=== PATIENT | male | born 1975 | race Caucasian/White ===

== ENCOUNTER 2017-12-02 07:18 | Emergency (ER) | payer BC ==
--- OUTSIDE RECORDS SUMMARY | 2017-12-02 07:20 | XMS REPORT ---
:1975 Author Organization eClinicalWorks Care Team Providers Name Role Phone Jay Hairston Provider Role Unavailable Allergies No Known Allergies Problems Problem Type Condition Code Onset Dates Condition Status Assessment Obstructive sleep apnea G47.33 Active Problem Hypothyroidism E03.9 Active Problem Tobacco abuse counseling Z71.6 Active Problem Pure hypercholesterolemia E78.00 Active Problem Foot pain, right M79.671 Active Problem Acquired hypothyroidism E03.9 Active Problem Obstructive sleep apnea G47.33 Active Problem Hypertension I10 Active Problem BMI 50.0-59.9, adult Z68.43 Active Problem Gastro-esophageal reflux disease K21.9 Active without esophagitis Assessment Pure hypercholesterolemia E78.00 Active Assessment Stage 2 chronic kidney disease N18.2 Active Assessment Hypothyroidism E03.9 Active Assessment BMI 50.0-59.9, adult Z68.43 Active Medications Medication Code Code Instructions Start End Date Status Dosage System Date Synthroid [facility] 50293628472 150 MCG Orally Active 1 tablet Once a day on an empty stomach in the morning Diclofenac ND 70255080325 75 MG Orally August Inactive 1 tablet Sodium Twice a day 2017 with food or milk Liothyronine ND 20777332865 25 MCG Orally August Active 1 tablet Sodium Once a day 2017 on an empty stomach Lisinopril [facility] 71240748202 40 MG Orally Active 1 tablet Once a day Results No Known Results Summary Purpose eClinicalWorks Submission
--- NOTE | 2017-12-02 09:33 | RAD REPORT ---
EXAM DESCRIPTION: VAS - Extremity Venous Uni Ltd - 12/02/2017 8:59 am CLINICAL HISTORY: SWELLING Left arm swelling. COMPARISON: No comparisons FINDINGS: Left upper extremity venous system was interrogated with Doppler technique. Thrombus is pr esent in the cephalic vein in the lower arm. No other evidence of DVT seen. IMPRESSION: Cephalic vein thrombosis is seen involving the lower arm. Findings were discussed with Cristhian Frazier in the ER 9:30 am 12/02/2017 by telephone.
--- NOTE | 2017-12-02 09:42 | ER ---
Nurse's Notes [facility] Name: Cem Serra Age: 41 yrs Sex: Male : 1975 Arrival Date: 12/02/2017 Time: 07:21 Bed 20 Private MD: None, None Diagnosis: Acute embolism and thrombosis of superficial veins of upper extremity-Left Forearm Presentation: 12/02 07:45 Presenting complaint: Patient states: had recent vertical sleeve gastric surgery on iw 11-28-17 in [place], just flew back in to town, has swelling and pain to LFA, feels a knot in forearm, had IV in left hand and was given fluids, pain and nausea medicine through it. Transition of care: patient was not received from another setting of care. Onset of symptoms was December 02, 2017. Risk Assessment: Do you want to hurt yourself or someone else? Patient reports no desire to harm self or others. Initial Sepsis Screen: Does the patient meet any 2 criteria? No. Patient's initial sepsis screen is negative. Does the patient have a suspected source of infection? No. Patient's initial sepsis screen is negative. Care prior to arrival: None. 07:45 Method Of Arrival: Ambulatory iw 07:45 Acuity: MARIA VICTORIA 3 iw Historical: - Allergies: 07:53 NKA; iw - Home Meds: 07:53 lisinopril 40 mg Oral tab 1 tab once daily [Active]; levothyroxine 150 mcg tab 1 tab iw once daily [Active]; liothyronine 25 mcg oral tab 1 tab once daily [Active]; - PMHx: 07:53 Hypertension; Hypothyroidism; iw - PSHx: 07:53 Cholecystectomy; Appendectomy; gastric sleeve; iw - Immunization history:: Adult Immunizations. - Social history:: Smoking status: . - Ebola Screening: : Patient negative for fever greater than or equal to 101.5 degrees Fahrenheit, and additional compatible Ebola Virus Disease symptoms Patient denies exposure to infectious person Patient denies travel to an Ebola-affected area in the 21 days before illness onset No symptoms or risks identified at this time. Screenin:05 Abuse screen: Denies threats or abuse. Nutritional screening: No deficits noted. em Tuberculosis screening: No symptoms or risk factors identified. Fall Risk None identified. Assessment: 08:00 General: Appears in no apparent distress. comfortable, Behavior is calm, cooperative. em Pain: Complains of pain in dorsal aspect of left forearm Pain does not radiate. Quality of pain is described as "annoying". Neuro: Level of Consciousness is awake, alert, obeys commands, Oriented to person, place, time, situation. Cardiovascular: Capillary refill < 3 seconds Patient's skin is warm and dry. Respiratory: Airway is patent Respiratory effort is even, unlabored, Respiratory pattern is regular, symmetrical. GI: Abdomen is round non-distended. Derm:. Musculoskeletal: Range of motion: intact in all extremities, Reports pain in left arm since 11/28/17. 09:19 Reassessment: Patient appears in no apparent distress at this time. Patient and/or em family updated on plan of care and expected duration. Pain level reassessed. Patient is alert, oriented x 3, equal unlabored respirations, skin warm/dry/pink. pt is resting with eyes closed, pending ultrasound results. Vital Signs: 07:49 BP 154 / 97; Pulse 59; Resp 18 S; Temp 97.9(O); Pulse Ox 97% on R/A; Weight 169.19 kg; iw Height 5 ft. 11 in. (180.34 cm); Pain 4/10; 09:40 BP 148 / 91; Pulse 62; Resp 16; Pulse Ox 98% on R/A; em 07:49 Body Mass Index 52.02 (169.19 kg, 180.34 cm) iw ED Course: 07:21 Patient arrived in ED. mr 07:22 None, None is Private Physician. mr 07:35 Cristhian Frazier PA is PHCP. cp 07:35 Andre Franco MD is Attending Physician. cp 07:49 Triage completed. iw 07:49 Arm band placed on. iw 07:51 Crescencio Young LVN is Primary Nurse. em 08:04 Patient has correct armband on for positive identification. Placed in gown. Bed in low em position. Call light in reach. 08:05 No provider procedures requiring assistance completed. em 08:36 Ultrasound completed. Patient tolerated well. Notified PAYROLL SUPERVISOR/MALI worthington. sg3 08:59 US Extremity Venous Unilateral Ltd: left arm In Process Unspecified. EDMS 09:39 Jay Hairston MD is Referral Physician. cp 09:50 Patient did not have IV access during this emergency room visit. em Administered Medications: No medications were administered Outcome: 09:41 Discharge ordered by . sarahy 09:51 Discharged to home ambulatory. em 09:51 Condition: good 09:51 Discharge instructions given to patient, Instructed on discharge instructions, follow up and referral plans. Demonstrated understanding of instructions, follow-up care. 09:52 Patient left the ED. em Signatures: Dispatcher [employer] EDWV Taya Bernard mr Hector, Crescencio, BLOCKER AND SEWER BLOCKER AND SEWER em Cindi Vela RN RN Cristhian Parekh, PA PA Sara Rodriguez sg3
--- NOTE | 2017-12-02 09:42 | EDPHYS ---
Physician Documentation [facility] Name: Cem Serra Age: 41 yrs Sex: Male : 1975 Arrival Date: 12/02/2017 Time: 07:21 Bed 20 Private MD: None, None ED Physician Andre Franco HPI: 12/02 08:01 This 41 yrs old Male presents to ER via Ambulatory with complaints of Arm cp Swelling. 08:02 The patient or guardian complains of swelling, tenderness. The complaints affect the cp left arm. 08:02 Context: Patient reports having gastric sleeve surgery in [place] November 28, 2017 w/o cp complications. 08:02 Onset: The symptoms/episode began/occurred gradually. Treatment prior to arrival cp includes: no previous treatment. Associated signs and symptoms: Pertinent negatives: decreased range of motion, fever, numbness. Historical: - Allergies: 07:53 NKA; iw - Home Meds: 07:53 lisinopril 40 mg Oral tab 1 tab once daily [Active]; levothyroxine 150 mcg tab 1 tab iw once daily [Active]; liothyronine 25 mcg oral tab 1 tab once daily [Active]; - PMHx: 07:53 Hypertension; Hypothyroidism; iw - PSHx: 07:53 Cholecystectomy; Appendectomy; gastric sleeve; iw - Immunization history:: Adult Immunizations. - Social history:: Smoking status: . - Ebola Screening: : Patient negative for fever greater than or equal to 101.5 degrees Fahrenheit, and additional compatible Ebola Virus Disease symptoms Patient denies exposure to infectious person Patient denies travel to an Ebola-affected area in the 21 days before illness onset No symptoms or risks identified at this time. ROS: 08:05 Constitutional: Negative for body aches, chills, fever, poor PO intake. cp 08:05 Eyes: Negative for injury, pain, redness, and discharge. cp 08:05 ENT: Negative for drainage from ear(s), ear pain, sore throat, difficulty swallowing, difficulty handling secretions. 08:05 Cardiovascular: Negative for chest pain, palpitations. 08:05 Respiratory: Negative for cough, shortness of breath, wheezing. 08:05 Abdomen/GI: Negative for abdominal pain, nausea, vomiting, and diarrhea, constipation. 08:05 Back: Negative for pain at rest, pain with movement, radiated pain. 08:05 MS/extremity: Positive for swelling, tenderness, of the left arm, Negative for injury or acute deformity, paresthesias. 08:05 Skin: Negative for cellulitis, rash. 08:05 Neuro: Negative for altered mental status, dizziness, headache, weakness. 08:05 All other systems are negative. Exam: 08:21 Head/Face: Normocephalic, atraumatic. cp 08:21 Constitutional: The patient appears in no acute distress, alert, awake, non-diaphoretic, non-toxic, well developed, well nourished, obese. 08:21 Eyes: Periorbital structures: appear normal, Conjunctiva: normal, no exudate, no injection, Sclera: no appreciated abnormality, Lids and lashes: appear normal, bilaterally. 08:21 ENT: External ear(s): are unremarkable, Nose: is normal, Mouth: Lips: normal, Oral mucosa: moist, Posterior pharynx: is normal, airway is patent, no erythema, no exudate. 08:21 Neck: ROM/movement: is normal, is supple, without pain, no range of motions limitations, no nuchal rigidity. 08:21 Chest/axilla: Inspection: normal, Palpation: is normal, no crepitus, no tenderness. 08:21 Cardiovascular: Rate: normal, Rhythm: regular, Pulses: Pulses are 2+ in right radial artery and left radial artery. Heart sounds: murmur, not appreciated, rub, not appreciated, gallop, not appreciated, JVD: is not appreciated. 08:21 Respiratory: the patient does not display signs of respiratory distress, Respirations: normal, no use of accessory muscles, no retractions, no splinting, no tachypnea, labored breathing, is not present, Breath sounds: are clear throughout, no decreased breath sounds, no stridor, no wheezing. 08:21 Abdomen/GI: Inspection: distension, is not seen, scar(s), are noted in the umbilical area, right upper quadrant and left upper quadrant, Bowel sounds: active, all quadrants, Palpation: soft, in all quadrants, mild abdominal tenderness, in all quadrants, rebound tenderness, is not appreciated, involuntary guarding, is not appreciated. 08:21 Back: pain, is absent, ROM is normal. 08:21 Musculoskeletal/extremity: Extremities: grossly normal except: noted in the left arm: swelling, There is no evidence of decreased ROM, deformity, erythema, ROM: full active range of motion, Sensation intact. 08:21 Skin: cellulitis, is not appreciated, no rash present. Vital Signs: 07:49 BP 154 / 97; Pulse 59; Resp 18 S; Temp 97.9(O); Pulse Ox 97% on R/A; Weight 169.19 kg; iw Height 5 ft. 11 in. (180.34 cm); Pain 4/10; 09:40 BP 148 / 91; Pulse 62; Resp 16; Pulse Ox 98% on R/A; em 07:49 Body Mass Index 52.02 (169.19 kg, 180.34 cm) iw MDM: 07:48 Patient medically screened. cp 08:10 Differential diagnosis: DVT, cellulitis, abscess. cp 09:40 Data reviewed: vital signs, nurses notes, radiologic studies, ultrasound, and as a cp result, I will discharge patient. 09:40 Counseling: I had a detailed discussion with the patient and/or guardian regarding: the cp historical points, exam findings, and any diagnostic results supporting the discharge/admit diagnosis, radiology results, the need for outpatient follow up, an diesel mechanic helper, to return to the emergency department if symptoms worsen or persist or if there are any questions or concerns that arise at home. 12/02 08:03 Order name: US Extremity Venous Unilateral Ltd: left arm; Complete Time: 09:34 cp Administered Medications: No medications were administered Disposition: 12/02/17 09:41 Discharged to Home. Impression: Acute embolism and thrombosis of superficial veins of upper extremity - Left Forearm. - Condition is Stable. - Discharge Instructions: Venous Thromboembolism, Heat Therapy. - Medication Reconciliation Form, Thank You Letter, Antibiotic Education, Prescription Opioid Use form. - Follow up: Jay Hairston MD; When: 2 - 3 days; Reason: Recheck today's complaints. - Problem is new. - Symptoms are unchanged. Addendum: 12/03/2017 10:28 Co-signature as Attending Physician, Andre Franco MD. g s Signatures: Dispatcher [employer] EDCrescencio Ku, CAN CONVEYOR FEEDER CAN CONVEYOR FEEDER em Cindi Vela RN RN iw Cristhian Frazier PA PA Andre Martin MD MD gs Corrections: (The following items were deleted from the chart) 12/02 09:52 09:41 12/02/2017 09:41 Discharged to Home. Impression: Acute embolism and thrombosis of em superficial veins of upper extremity - Left Forearm. Condition is Stable. Forms are Medication Reconciliation Form, Thank You Letter, Antibiotic Education, Prescription Opioid Use. Follow up: Jay Hairston; When: 2 - 3 days; Reason: Recheck today's complaints. Problem is new. Symptoms are unchanged. cp
[2017-12-02 09:56] VITALS: TEMP 97.9
[2017-12-02 09:57] VITALS: BP 148/91; O2SAT 98
== END 2017-12-02 09:52 | disposition home or self-care (01) ==
LOC: ER 07:18
DX: I82.612 Acute embolism and thrombosis of superficial veins of left upper extremity (principal); I10 Essential (primary) hypertension; E03.9 Hypothyroidism, unspecified
CPT/HCPCS: 93971; 99283

== ENCOUNTER 2018-12-26 08:51 | Emergency (ER) | payer BC, OTHER ==
--- OUTSIDE RECORDS SUMMARY | 2018-12-26 08:54 | XMS REPORT ---
:1975 Author Organization eClinicalWorks Care Team Providers Name Role Phone Jay Hairston Provider Role Unavailable Allergies, Adverse Reactions, Alerts Substance Reaction Event Type N.K.D.A. 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 Active Problem Body mass index (BMI) of 45.0-49.9 Z68.42 Active in adult Problem Foot pain, right M79.671 Active Problem Gastro-esophageal reflux disease K21.9 Active without esophagitis Problem Pure hypercholesterolemia E78.00 Active Problem Acquired hypothyroidism E03.9 Active Assessment Hypothyroidism E03.9 Active Assessment Hypertension I10 Active Assessment Body mass index (BMI) of 45.0-49.9 Z68.42 Active in adult Medications Medication Code Code Instructions Start End Status Dosage System Date Date Lisinopril [facility] 31334009186 40 MG Orally Active 1 tablet Once a day Synthroid [facility] 62483980406 150 MCG Orally Active 1 tablet Once a day on an empty stomach in the morning Liothyronine ND 01342114782 25 MCG Orally Alysa Active 1 tablet Sodium Once a day 2017 on an empty stomach Results No Known Results Summary Purpose eClinicalWorks Submission
--- OUTSIDE RECORDS SUMMARY | 2018-12-26 08:54 | XMS REPORT ---
:1975 Author Organization eClinicalWorks Care Team Providers Name Role Phone Rylee Barron Provider Role Unavailable Allergies, Adverse Reactions, Alerts Substance Reaction Event Type N.K.D.A. 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 Active Problem Acquired hypothyroidism E03.9 Active Problem Encounter for removal of sutures Z48.02 Active Problem BMI 50.0-59.9, adult Z68.43 Active Problem Gastro-esophageal reflux disease K21.9 Active without esophagitis Problem Pure hypercholesterolemia E78.00 Active Problem Foot pain, right M79.671 Active Medications Medication Code Code Instructions Start End Status Dosage System Date Date Lisinopril ND 85664771343 40 MG Orally Active 1 tablet Once a day Diclofenac ND 10652345021 1 % Transdermal December 03, Jan 02, Active as directed Sodium Twice a day 2017 2017 Liothyronine ND 99626810408 25 MCG Orally August Active 1 tablet on Sodium Once a day 2017 an empty stomach Synthroid ND 52560480985 150 MCG Orally Active 1 tablet on Once a day an empty stomach in the morning Synthroid [facility] 28220996350 150 Active TAKE ONE TABLET BY MOUTH DAILY Results No Known Results Summary Purpose eClinicalWorks Submission
--- OUTSIDE RECORDS SUMMARY | 2018-12-26 08:54 | XMS REPORT ---
[...] End Date Status Dosage System Date Synthroid [facility] 84109854056 150 MCG Orally Active 1 tablet Once a day on an empty stomach in the morning Diclofenac ND 76424636738 75 MG Orally August Inactive 1 tablet Sodium Twice a day 2017 with food or milk Liothyronine ND 08449811711 25 MCG Orally August Active 1 tablet Sodium Once a day 2017 on an empty stomach Lisinopril [facility] 38752012860 40 MG Orally Active 1 tablet Once a day Results No Known Results Summary Purpose eClinicalWorks Submission
--- OUTSIDE RECORDS SUMMARY | 2018-12-26 08:54 | XMS REPORT ---
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 80675945965 150 MCG Orally Active 1 tablet on Once a day an empty stomach in the morning Lisinopril ND 57802825465 40 MG Orally Active 1 tablet Once a day Diclofenac [facility] 35787777562 1 % Transdermal December 03, Jan 02, Active as directed Sodium Twice a day [address] [facility] 27403810696 150 Active TAKE ONE TABLET BY MOUTH DAILY Liothyronine ND 06620826343 25 MCG Orally August Active 1 tablet on Sodium Once a day 2017 an empty stomach Results No Known Results Summary Purpose eClinicalWorks Submission
--- OUTSIDE RECORDS SUMMARY | 2018-12-26 08:54 | XMS REPORT ---
:1975 Author Organization eClinicalWorks Care Team Providers Name Role Phone Megan Bailey Provider Role Unavailable Allergies, Adverse Reactions, Alerts Substance Reaction Event Type N.K.D.A. 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 Active Problem Pure hypercholesterolemia E78.00 Active Assessment Seasonal allergic rhinitis, J30.2 Active unspecified trigger Assessment Dizziness R42 Active Problem Hypothyroidism E03.9 Active Medications Medication Code Code Instructions Start End Status Dosage System Date Date Synthroid [facility] 93872656405 150 MCG Orally Active 1 tablet Once a day on an empty stomach in the morning Liothyronine ND 12127795549 25 MCG Orally August Active 1 tablet Sodium Once a day 2017 on an empty stomach Lisinopril ND 50511678431 40 MG Orally Active 1 tablet Once a day Flonase ND 47661534596 50 MCG/ACT Feb 19, Active 2 sprays Nasally Once a 2018 each day nostril prn Results Name Result Date Reference Range Unit Abnormality Flag GLUCOSE FINGER ----Result 85 [id number] Summary Purpose eClinicalWorks Submission
--- OUTSIDE RECORDS SUMMARY | 2018-12-26 08:54 | XMS REPORT ---
:1975 Author Organization eClinicalWorks Care Team Providers Name Role Phone Anderson Rylee Provider Role Unavailable Allergies, Adverse Reactions, Alerts Substance Reaction Event Type N.K.D.A. Info Not Available Non Drug Allergy Problems Problem Type Condition Code Onset Dates Condition Status Problem Obstructive sleep apnea G47.33 Active Problem Foot pain, right M79.671 Active Problem Gastro-esophageal reflux disease K21.9 Active without esophagitis Assessment Acute nasopharyngitis [common cold] J00 Active Problem Hypothyroidism E03.9 Active Problem Hypertension I10 Active Problem Environmental allergies Z91.09 Active Problem Body mass index (BMI) of 45.0-49.9 Z68.42 Active in adult Problem Acute nasopharyngitis [common cold] J00 Active Problem Pure hypercholesterolemia E78.00 Active Problem Acquired hypothyroidism E03.9 Active Problem Encounter for removal of sutures Z48.02 Active Problem 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 Active Medications Medication Code Code Instructions Start End Status Dosage System Date Date Fluticasone ND 98703058649 50 MCG/ACT Apr 11, Active 1 spray in Propionate Nasally Once a 2017 each day nostril Oseltamivir ND 53993141372 75 MG Orally Apr 11, Active 1 capsule Phosphate Twice a day 2017 Lisinopril ND 18739226780 40 MG Orally Active 1 tablet Once a day Liothyronine ND 63174787119 25 MCG Orally August Active 1 tablet Sodium Once a day 2017 on an empty stomach Flonase ND 51522387771 50 MCG/ACT Feb 19, Active 2 sprays Nasally Once a 2017 each day nostril prn Synthroid ND 72614404433 150 MCG Orally Active 1 tablet Once a day on an empty stomach in the morning Results No Known Results Summary Purpose eClinicalWorks Submission
--- NOTE | 2018-12-26 10:19 | ER ---
Nurse's Notes [facility] Name: Cem Serra Age: 42 yrs Sex: Male : 1975 Arrival Date: 12/26/2018 Time: 08:53 Bed 11 Private MD: Jay Hairston Diagnosis: Bursitis of left shoulder Presentation: 12/26 09:07 Presenting complaint: Left shoulder pain x 1 year. Transition of care: patient was not hb received from another setting of care. Onset of symptoms is unknown. Risk Assessment: Do you want to hurt yourself or someone else? Patient reports no desire to harm self or others. Initial Sepsis Screen: Does the patient meet any 2 criteria? No. Patient's initial sepsis screen is negative. Does the patient have a suspected source of infection? No. Patient's initial sepsis screen is negative. Care prior to arrival: None. 09:07 Method Of Arrival: Ambulatory hb 09:07 Acuity: MARIA VICTORIA 4 hb Historical: - Allergies: 09:08 NKA; hb - Home Meds: 09:08 levothyroxine 150 mcg tab 1 tab once daily [Active]; liothyronine 25 mcg Oral tab 1 tab hb once daily [Active]; lisinopril 40 mg Oral tab 1 tab once daily [Active]; - PMHx: 09:08 Hypertension; Hypothyroidism; hb - PSHx: 09:08 Appendectomy; Cholecystectomy; gastric sleeve; hb Vital Signs: 09:08 BP 163 / 89; Pulse 59; Resp 16; Temp 98.2; Pulse Ox 100% on R/A; Weight 104.33 kg; hb Height 5 ft. 11 in. (180.34 cm); Pain 8/10; 09:08 Body Mass Index 32.08 (104.33 kg, 180.34 cm) hb ED Course: 08:53 Patient arrived in ED. as 08:54 Jay Hairston MD is Private Physician. as 09:08 Triage completed. hb 09:08 Arm band placed on. EKG completed in triage. Results shown to MD. EKG completed in hb triage. Results shown to MD. 10:03 Layton Hough PA is PHCP. [facility] 10:03 Ubaldo Solorio MD is Attending Physician. paul 10:17 Silvio Millan MD is Referral Physician. [facility] 10:26 Denice Boone, RN is Primary Nurse. 10:26 No provider procedures requiring assistance completed. Patient did not have IV access ss during this emergency room visit. Administered Medications: No medications were administered Outcome: 10:18 Discharge ordered by . [facility] 10:26 Discharged to home ambulatory, with friend. 10:26 Condition: good 10:26 Discharge instructions given to patient, Instructed on discharge instructions, follow up and referral plans. safe sex practices, Demonstrated understanding of instructions, follow-up care, medications, Prescriptions given X 1. 10:28 Patient left the ED. Signatures: Layton Hough PA PA Rachell Jain as Denice Boone, RN RN Abby Cash RN RN hb
--- NOTE | 2018-12-26 10:20 | EDPHYS ---
Physician Documentation [facility] Name: Cem Serra Age: 42 yrs Sex: Male : 1975 Arrival Date: 12/26/2018 Time: 08:53 Bed 11 Private MD: Jay Hairston ED Physician Ubaldo Solorio HPI: 12/26 10:16 This 42 yrs old Male presents to ER via Ambulatory with complaints of jmm Shoulder Pain. 10:16 left shoulder. Onset: The symptoms/episode began/occurred gradually. Modifying factors: jmm the symptoms are alleviated by remaining still, The symptoms are aggravated by movement. Associated signs and symptoms: Pertinent negatives:. This is a 42 year old male with a history of htn that presents to the ED with complaints of left shoulder pain which has been chronic over the past year, worsening over the past month. Patient is 1 year s/p bariatric surgery. Patient states now he sleeps on his left side and states now when he moves his shoulder he feels a grinding sensation. Denies radiation of pain, denies weakness. . Historical: - Allergies: 09:08 NKA; hb - Home Meds: 09:08 levothyroxine 150 mcg tab 1 tab once daily [Active]; liothyronine 25 mcg Oral tab 1 tab hb once daily [Active]; lisinopril 40 mg Oral tab 1 tab once daily [Active]; - PMHx: 09:08 Hypertension; Hypothyroidism; hb - PSHx: 09:08 Appendectomy; Cholecystectomy; gastric sleeve; hb ROS: 10:16 Constitutional: Negative for fever, chills, and weight loss, Cardiovascular: Negative jmm for chest pain, palpitations, and edema, Respiratory: Negative for shortness of breath, cough, wheezing, and pleuritic chest pain. 10:16 MS/extremity: Positive for injury or acute deformity, pain. 10:16 All other systems are negative. Exam: 10:16 Head/Face: atraumatic. Eyes: EOMI, no conjunctival erythema appreciated ENT: Moist jmm Mucus Membranes Neck: Trachea midline, Supple Chest/axilla: Normal chest wall appearance and motion. Cardiovascular: Regular rate and rhythm. No edema appreciated Respiratory: Normal respirations, no respiratory distress appreciated Abdomen/GI: Non distended, soft Back: Normal ROM 10:16 Constitutional: The patient appears in no acute distress, alert, awake. 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 10:16 Skin: Appearance: Color: normal in color. 10:16 Neuro: Orientation: is normal, Mentation: is normal, Memory: is normal. 10:16 Psych: Behavior/mood is pleasant, cooperative. Vital Signs: 09:08 BP 163 / 89; Pulse 59; Resp 16; Temp 98.2; Pulse Ox 100% on R/A; Weight 104.33 kg; hb Height 5 ft. 11 in. (180.34 cm); Pain 8/; 09:08 Body Mass Index 32.08 (104.33 kg, 180.34 cm) hb MDM: 10:16 Patient medically screened. [facility] 10:16 Data reviewed: vital signs, nurses notes. Counseling: I had a detailed discussion with sylvie the patient and/or guardian regarding: the historical points, exam findings, and any diagnostic results supporting the discharge/admit diagnosis, the need for outpatient follow up, to return to the emergency department if symptoms worsen or persist or if there are any questions or concerns that arise at home. ED course: PE normal. Symptoms appear chronic. Patient advised to follow up with ortho for further evaluation. Patient understood and agrees with the plan of care. . Administered Medications: No medications were administered Disposition: 14:20 Co-signature as Attending Physician, Ubaldo Solorio MD I agree with the assessment and kdr plan of care. Disposition: 12/26/18 10:18 Discharged to Home. Impression: Bursitis of left shoulder. - Condition is Stable. - Discharge Instructions: Bursitis. - Prescriptions for Medrol (Jose Carlos) 4 mg Oral Tablets, Dose Pack - take 1 tablet by ORAL route as directed - follow package instructions; 1 packet. - Medication Reconciliation Form, Thank You Letter, Antibiotic Education, Prescription Opioid Use, Family Work Release form. - Follow up: Silvio Millan MD; When: 2 - 3 days; Reason: Recheck today's complaints, Continuance of care, Re-evaluation by your physician. Signatures: Ubaldo Solorio MD MD kdr Mickail, Joel, PA PA jmm Smirch, Shelby, RN RN Abby Cash RN RN Corrections: (The following items were deleted from the chart) 10:28 10:18 12/26/2018 10:18 Discharged to Home. Impression: Bursitis of left shoulder. ss Condition is Stable. Forms are Medication Reconciliation Form, Thank You Letter, Antibiotic Education, Prescription Opioid Use. Follow up: Dr. Silvio Millan; When: 2 - 3 days; Reason: Recheck today's complaints, Continuance of care, Re-evaluation by your physician. sylvie
[2018-12-26 10:32] VITALS: BP 163/89; TEMP 98.2; O2SAT 100
== END 2018-12-26 10:28 | disposition home or self-care (01) ==
LOC: ER 08:51
DX: M75.52 Bursitis of left shoulder (principal); I10 Essential (primary) hypertension; E03.9 Hypothyroidism, unspecified
CPT/HCPCS: 99282

== ENCOUNTER 2020-07-17 16:56 | Emergency (ER) | payer OTHER ==
--- OUTSIDE RECORDS SUMMARY | 2020-07-17 17:07 | XMS REPORT | Continuity of Care Document ---
:1975 Author Organization [facility] t Address [address] [place] [address] Care Team Providers Name Role Phone Unavailable Unavailable Unavailable Problems Condition Condition Condition Status Onset Resolution Last Treating Co mments Source Name Details Category Date Date Treatment Clinician Date Obstructiv Obstructiv Problem Active [facility] sleep [facility] apnea apnea [facility] Hypothyroi Hypothyroi Problem Active [facility] dism dism [facility]ics Pure Pure Problem Active [facility] hyperchole hyperchole Ora kes - sterolemia sterolemia Me moria l [facility] Foot pain, Foot pain, Problem Active [facility] right right [facility] Hypertensi Hypertensi Problem Active [facility] on on [facility] - [facility] l [facility] Gastro-eso Gastro-eso Problem Active [facility] phageal phageal [facility] - reflux reflux Memoria disease disease l without without Outpati esophagiti esophagiti en t s s Clinics Status Status Problem Active [facility] post post [facility] - gastrectom gastrectom Me moria y y l [facility] Encounter Encounter Problem Active [facility] for for [facility] - removal of removal of Me moria sutures sutures l [facility] Body mass Body mass Problem Active [facility] index index [facility] - (BMI) of (BMI) of Memori a 45.0-49.9 45.0-49.9 l in adult in adult Outpat i ent Clinics [facility] Problem Active [facility] vy vy [facility] - allergies allergies Marcos carlos l [facility] Acute Acute Problem Active [facility] nasopharyn nasopharyn Ora kes - gitis gitis Memoria [common [common l cold] cold] [facility] Dizziness Dizziness Problem Active [facility] Seasonal Seasonal Problem Active [facility] allergies allergies [facility] - Memoria l [facility]ics Gastroente Gastroente Problem Active [facility] ritis ritis kes - Memoria l [facility] ent [facility] Costochond Costochond Diagnosis Active [facility] ritis ritis [facility] - [facility]oria l [facility] Allergies, Adverse Reactions, Alerts This patient has no known allergies or adverse reactions. Medications Ordered Filled Start Stop Current Ordering Indication Dosage Frequency Signature Comments Components Source Medication Medication Date Date Medication? Clinician (SIG) Name Name Methocarbam Methocarbam 2019- No Rylee [address] [facility] ol ol 06-30 [facility]ron [facility] - 00:00: 00:00 Memoria 00 :00 [facility] PredniSONE PredniSONE 2019- No Rylee [address] [facility] 06-30 [facility]ron [facility] - 00:00: 00:00 Memoria 00 :00 [facility] ent [facility] Meclizine Meclizine 2018-05 Yes Rylee [address] [facility] HCl HCl 1-05 Barron as needed [facility] - 00:00: for Memoria 00 vertigo/di l zziness [facility] ent Clinics Fluticasone Fluticasone 2017-05 Yes Rylee [address] [facility] Propionate Propionate 1-15 Barron each Ora kes - 00:00: nostril Memoria 00 [facility] ent [facility] Oseltamivir Oseltamivir 2017-05 Yes Rylee [address] [facility] Phosphate Phosphate 1-15 Barron Luke s - 00:00: Memoria 00 l [facility] ent Clinics Flonase Flonase Yes Rylee [address] 9-25 Barron each [facility] - 00:00: nostril Memoria 00 prn l [facility] Clinics Liothyronin Liothyronin Yes Rylee [address] [facility] e Sodium e Sodium Barron on an [facility] - empty Memoria stomach [facility] ent Clinics Synthroid Synthroid Yes Rylee [address] [facility] on an [facility] - empty [facility] stomach in l [facility] Lisinopril Lisinopril Yes Rylee take one [facility] Barron tablet by [facility] - mouth Memoria daily [facility] ent Clinics Zofran Zofrandrzej Yes Rylee 1 tablet [facility] - [facility] l Outpati ent Clinics Procedures This patient has no known procedures. Encounters Start End Encounter Admission Attending Care Care Encounter Source Date/Time Date/Time Type Type Clinicians Facility Department ID 2019-06-30 2019-06-30 [facility] [id number] [facility] 09:20[facility]00 09:20:[address] [facility] Medicine Outpati ent Clinics 2019-04-01 2019-04-01 [facility] [id number] [address] 13:00[facility]00 13:00:[address] [facility] Medicine Outpati ent Clinics 2019-01-24 2019-01-24 [facility] [id number] [address] 10[facility]30:00 10:30:[address] [facility] Medicine Outpati ent Clinics 2018-06-11 2018-06-11 [facility] [id number] [facility] 14:00[facility]00 14:00[facility]00 [facility] l Outpati ent Clinics 2018-02-19 2018-02-19 [facility] [id number] [facility] 11:00:00 11:00:00 [facility] l Outpati ent Clinics 2018-01-07 2018-01-07 [facility] [id number] [facility] [address] 13:00:00 13:00:[address] [facility] Medicine Outpati ent Clinics 2017-12-10 2017-12-10 [facility] [id number] [address] 10:00:00 10:00:00 [facility] l Outpati ent Clinics 2017-12-03 2017-12-03 [facility] [id number] [address] 13:30:00 13:30:[address] [facility] Medicine Outpati ent Clinics 2017-09-07 2017-09-07 [facility] [id number] 10:15:[facility] 10:15:[address] [facility] Medicine Outpati ent Clinics Results This patient has no known results.
[2020-07-17] MEDS ORDERED: MORPHINE 4 MG/ML SYR ONE (17:57)
[2020-07-17] MEDS ORDERED: ONDANSETRON 4 MG/2 ML VIAL ONE (17:57)
[2020-07-17 18:06] LABS: Absolute Lymphocytes (CBC) 1.1 K/uL (0.7-4.9); Basophils % 0.5 % (0-1.3); Hematocrit 39.8 % (39.6-49.0); Lymphocytes % 15.7 % (15.3-44.8); RBC Red Blood Cell Count 4.34 M/uL (4.33-5.43)
[2020-07-17 18:10] LABS: Albumin 4.3 g/dL (3.4-5.0); Bilirubin Direct 0.2 mg/dL (0-0.2); Bilirubin Total 0.9 mg/dL (0.2-1.0); Potassium 3.7 mmol/L (3.5-5.1); Protein, Total 7.2 g/dL (6.4-8.2)
--- NOTE | 2020-07-17 18:28 | RAD REPORT ---
EXAM DESCRIPTION: CT - Stone Protocol - 07/17/2020 5:54 pm CLINICAL HISTORY: Abdominal pain. COMPARISON: 2013 TECHNIQUE: Computed axial tomography of the abdomen pelvis was obtained without oral or IV contrast. Lack of IV and oral contrast limits evaluation of solid organs, bowel, and vessels. Coronal reformat do images were obtained and reviewed. All CT scans are performed using dose optimization technique as appropriate and may include automated exposure control or mA/KV adjustment according to patient size. FINDINGS: Tiny bilateral nonobstructing renal calculi. Mild left hydronephrosis. 3 millimeter calcul us very distal left ureter. Mild enlargement of the prostate gland. Rectal wall appears thickened. The liver, spleen, pancreas and adrenals appear grossly normal There is no evidence of diverticulitis. The appendix appears normal IMPRESSION: 3 millimeter calculus very distal left ureter resulting mild left hydronephrosis Apparent rectal wall thickening may be secondary to incomplete distention, inflammation or mass
[2020-07-17] MEDS ORDERED: MAGNESIUM SULFATE 1 gm IVPB 1 GM/100 ML BAG IV ONE (18:45)
[2020-07-17] MEDS ORDERED: KETOROLAC 30 MG/ML INJ ONE (18:45)
--- NOTE | 2020-07-17 18:52 | ER ---
Nurse's Notes [facility] Name: Cem Serra Age: 44 yrs Sex: Male : 1975 Arrival Date: 07/17/2020 Time: 17:02 Bed Ultrasound Private MD: Jay Hairston Diagnosis: Calculus of ureter Presentation: 07/17 17:10 Chief complaint: Patient states: lower abd pain radiates into left groin and had a lot iw of diarrhea, feels like a buzzing feeling all over body and is dizzy feels like he smoked a joint , started an hour ago. Coronavirus screen: diarrhea. Ebola Screen: Patient negative for fever greater than or equal to 101.5 degrees Fahrenheit, and additional compatible Ebola Virus Disease symptoms Patient denies exposure to infectious person. Patient denies travel to an Ebola-affected area in the 21 days before illness onset. No symptoms or risks identified at this time. Initial Sepsis Screen: Does the patient meet any 2 criteria? No. Patient's initial sepsis screen is negative. Does the patient have a suspected source of infection? No. Patient's initial sepsis screen is negative. Risk Assessment: Do you want to hurt yourself or someone else? Patient reports no desire to harm self or others. Onset of symptoms was July 17, 2020. 17:10 Method Of Arrival: Wheelchair iw 17:10 Acuity: MARIA VICTORIA 3 iw Historical: - Allergies: 17:12 NKA; iw - Home Meds: 17:12 levothyroxine 150 mcg tab 1 tab once daily [Active]; iw - PMHx: 17:12 Hypertension; Hypothyroidism; iw - PSHx: 17:12 Appendectomy; Cholecystectomy; gastric sleeve; iw - Immunization history:: Adult Immunizations not up to date. - Social history:: Smoking status: Patient/guardian denies using tobacco, the patient reports quitting approximately 16 years ago. - Family history:: not pertinent. - Hospitalizations: : No recent hospitalization is reported. Screenin:34 Abuse screen: Denies threats or abuse. Denies injuries from another. Nutritional zb screening: No deficits noted. Tuberculosis screening: No symptoms or risk factors identified. Fall Risk None identified. Assessment: 17:31 General: Appears uncomfortable, Behavior is cooperative, appropriate for age. Pain: zb Complains of pain in left testicle and suprapubic area Pain radiates to left testicle Pain currently is 10 out of 10 on a pain scale. Quality of pain is described as radiating, throbbing, Pain began 1 hour ago. Is intermittent, Alleviated by nothing. Noted to be grimacing, moaning, Also complains of diarrhea. Neuro: Level of Consciousness is awake, alert, obeys commands, Oriented to person, place, time. Cardiovascular: Capillary refill < 3 seconds in bilateral Patient's skin is warm and dry. Respiratory: Airway is patent Respiratory effort is even, unlabored, Respiratory pattern is regular, symmetrical. GI: Abdomen is round non-distended, Bowel sounds present X 4 quads. Abd is soft and non tender X 4 quads. Reports diarrhea, nausea. : Reports pain in left testicle. EENT: No signs and/or symptoms were reported regarding the EENT system. Derm: Skin is intact, Skin is dry, Skin is normal, Skin temperature is warm. Musculoskeletal: Circulation, motion, and sensation intact. Capillary refill < 3 seconds, in bilateral fingers. Range of motion: intact in all extremities. 18:30 Reassessment: Patient appears in no apparent distress at this time. Patient and/or zb family updated on plan of care and expected duration. Pain level reassessed. Patient is alert, oriented x 3, equal unlabored respirations, skin warm/dry/pink. ultrasound at bedside. 18:55 Reassessment: d/c pending IV medication. zb 20:07 Reassessment: Patient appears in no apparent distress at this time. Patient is alert, rr5 oriented x 3, equal unlabored respirations, skin warm/dry/pink. discharge instruction given and explained without complaints made Patient states symptoms have improved. Vital Signs: 17:12 BP 127 / 94; Pulse 66; Resp 16; Temp 97.6; Pulse Ox 99% ; Weight 95.25 kg; Height 5 ft. iw 10 in. (177.80 cm); Pain 10/10; 19:00 BP 121 / 76; Pulse 69; Resp 15; Pulse Ox 98% ; rr5 20:00 BP 125 / 85; Pulse 65; Resp 19; Pulse Ox 99% ; rr5 17:12 Body Mass Index 30.13 (95.25 kg, 177.80 cm) iw ED Course: 17:02 Patient arrived in ED. ag5 17:02 Jay Hairston MD is Private Physician. ag5 17:11 Triage completed. iw 17:24 Darshan Tomlinson MD is Attending Physician. rn 17:28 Susu Hess, LORRIE is Primary Nurse. jl7 17:34 Patient has correct armband on for positive identification. Pulse ox on. NIBP on. Door zb closed. Noise minimized. Warm blanket given. 17:35 Splint/sling/ice applied as appropriate. zb 17:48 Inserted saline lock: 20 gauge in right antecubital area, using aseptic technique. dh4 Blood collected. 17:49 Minerva Crowell, RN is Primary Nurse. zb 17:54 CT Stone Protocol In Process Unspecified. EDMS 18:46 US Scrotum Testicles In Process Unspecified. EDMS 18:52 Ultrasound completed. Patient tolerated well. Notified ED Physician robb. sg3 20:08 No provider procedures requiring assistance completed. IV discontinued, intact, rr5 bleeding controlled, No redness/swelling at site. Pressure dressing applied. Administered Medications: 17:47 Drug: morphine 4 mg Route: IVP; Site: right antecubital; zb 18:00 Follow up: Response: No adverse reaction; Pain is decreased; RASS: Alert and Calm (0) zb 17:47 Drug: Zofran (Ondansetron) 4 mg Route: IVP; Site: right antecubital; zb 18:55 Follow up: Response: No adverse reaction zb 18:54 Drug: Magnesium Sulfate 1 grams Route: IVPB; Infused Over: 1 hrs; Site: right zb antecubital; 20:00 Follow up: Response: No adverse reaction; IV Status: Completed infusion; IV Intake: rr5 100ml 18:54 Drug: TORadol - Ketorolac 15 mg Route: IVP; Site: right antecubital; zb 20:09 Follow up: Response: No adverse reaction rr5 18:54 Drug: Flomax 0.4 mg Route: PO; zb 20:09 Follow up: Response: No adverse reaction rr5 Intake: 20:00 IV: 100ml; Total: 100ml. rr5 Outcome: 18:52 Discharge ordered by . rn 20:08 Discharged to home ambulatory. rr5 20:08 Condition: stable 20:08 Discharge instructions given to patient, Instructed on discharge instructions, follow up and referral plans. Demonstrated understanding of instructions, follow-up care, medications, Prescriptions given X 2. 20:09 Patient left the ED. rr5 Signatures: Dispatcher [employer] EDCindi Pantoja, RN Darshan Charles MD MD rn Leal, Jahala, RN RN jl7 Sara Ricketts 3 Oscar Wagner RN RN rr5 Nafisa Doty banner Tommie Esquivel [facility] Minerva Crowell RN RN zb Corrections: (The following items were deleted from the chart) 17:48 17:31 GI: Abdomen is round non-distended, Bowel sounds present X 4 quads. Abd is soft zb and non tender X 4 quads. zb
--- NOTE | 2020-07-17 18:53 | EDPHYS ---
Physician Documentation [facility] Name: Cem Serra Age: 44 yrs Sex: Male : 1975 Arrival Date: 07/17/2020 Time: 17:02 Bed Ultrasound Private MD: Jay Hairston ED Physician Darshan Tomlinson HPI: 07/17 17:43 This 44 yrs old Male presents to ER via Wheelchair with complaints of rn Abdominal Pain, Groin Pain. 17:44 The patient presents with abdominal pain in the left lower quadrant. Onset: The rn symptoms/episode began/occurred 1 hour(s) ago. The symptoms radiate to pelvis and left testicle. Associated signs and symptoms: Pertinent positives: diarrhea, nausea, Pertinent negatives: fever, vomiting blood. The symptoms are described as intermittent, sharp. Modifying factors: The symptoms are alleviated by nothing, the symptoms are aggravated by nothing. Severity of pain: At its worst the pain was moderate in the emergency department the pain has improved. The patient has not experienced similar symptoms in the past. The patient has not recently seen a physician. 17:44 Reports abdominal pain worse than testicle pain. . rn Historical: - Allergies: 17:12 NKA; iw - Home Meds: 17:12 levothyroxine 150 mcg tab 1 tab once daily [Active]; iw - PMHx: 17:12 Hypertension; Hypothyroidism; iw - PSHx: 17:12 Appendectomy; Cholecystectomy; gastric sleeve; iw - Immunization history:: Adult Immunizations not up to date. - Social history:: Smoking status: Patient/guardian denies using tobacco, the patient reports quitting approximately 16 years ago. - Family history:: not pertinent. - Hospitalizations: : No recent hospitalization is reported. ROS: 17:44 Constitutional: Negative for fever, chills, and weight loss, Eyes: Negative for injury, rn pain, redness, and discharge, Neck: Negative for injury, pain, and swelling, Cardiovascular: Negative for chest pain, palpitations, and edema, Respiratory: Negative for shortness of breath, cough, wheezing, and pleuritic chest pain, Abdomen/GI: + left abd pain, + nausea and diarrhea Back: Negative for injury and pain, MS/Extremity: Negative for injury and deformity, Skin: Negative for injury, rash, and discoloration, Neuro: Negative for headache, weakness, numbness, tingling, and seizure. Exam: 17:44 Constitutional: This is a well developed, well nourished patient who is awake, alert, rn and in no acute distress. Head/Face: Normocephalic, atraumatic. Cardiovascular: Regular rate and rhythm. No pulse deficits. Respiratory: No increased work of breathing, no retractions or nasal flaring. Abdomen/GI: soft, non-tender, no masses, no evidence of inguinal hernia Male : + tenderness superior portion of left testicle without mass or swelling/erythema, normal lie Skin: Warm, dry with normal turgor. Normal color with no rashes, no lesions, and no evidence of cellulitis. MS/ Extremity: Pulses equal, no cyanosis. Neurovascular intact. Full, normal range of motion. Equal circumference. Neuro: Awake and alert, GCS 15 Vital Signs: 17:12 BP 127 / 94; Pulse 66; Resp 16; Temp 97.6; Pulse Ox 99% ; Weight 95.25 kg; Height 5 ft. iw 10 in. (177.80 cm); Pain 10/10; 19:00 BP 121 / 76; Pulse 69; Resp 15; Pulse Ox 98% ; rr5 20:00 BP 125 / 85; Pulse 65; Resp 19; Pulse Ox 99% ; rr5 17:12 Body Mass Index 30.13 (95.25 kg, 177.80 cm) iw MDM: 17:25 Patient medically screened. rn 18:49 Differential diagnosis: Testicular Torsion, Ureterolithiasis. Data reviewed: vital rn signs, nurses notes, lab test result(s), radiologic studies, CT scan, ultrasound, and as a result, I will discharge patient. Counseling: I had a detailed discussion with the patient and/or guardian regarding: the historical points, exam findings, and any diagnostic results supporting the discharge/admit diagnosis, lab results, radiology results, the need for outpatient follow up, to return to the emergency department if symptoms worsen or persist or if there are any questions or concerns that arise at home. Response to treatment: the patient's symptoms have markedly improved after treatment, and as a result, I will discharge patient. Special discussion: Based on the patient's Hx, exam, and Dx evaluation, there is no indication for emergent surgery or inpatient Tx. It is understood by the patient/guardian that if the Sx's persist or worsen they need to return immediately for re-evaluation. I discussed with the patient/guardian in detail that at this point there is no indication for admission to the hospital. It is understood, however, that if the symptoms persist or worsen the patient needs to return immediately for re-evaluation. 07/17 17:34 Order name: Basic Metabolic Panel rn 07/17 17:34 Order name: CBC with Diff; Complete Time: 18:11 rn 07/17 17:34 Order name: Hepatic Function; Complete Time: 18:12 rn 07/17 17:34 Order name: Lipase; Complete Time: 18:12 rn 07/17 17:35 Order name: Basic Metabolic Panel; Complete Time: 18:12 EDMS 07/17 17:34 Order name: IV Saline Lock; Complete Time: 17:49 rn 07/17 17:34 Order name: CT Stone Protocol; Complete Time: 18:30 rn 07/17 17:34 Order name: US Scrotum Testicles rn 07/17 17:34 Order name: Labs collected and sent; Complete Time: 17:49 rn Administered Medications: 17:47 Drug: morphine 4 mg Route: IVP; Site: right antecubital; zb 18:00 Follow up: Response: No adverse reaction; Pain is decreased; RASS: Alert and Calm (0) zb 17:47 Drug: Zofran (Ondansetron) 4 mg Route: IVP; Site: right antecubital; zb 18:55 Follow up: Response: No adverse reaction zb 18:54 Drug: Magnesium Sulfate 1 grams Route: IVPB; Infused Over: 1 hrs; Site: right zb antecubital; 20:00 Follow up: Response: No adverse reaction; IV Status: Completed infusion; IV Intake: rr5 100ml 18:54 Drug: TORadol - Ketorolac 15 mg Route: IVP; Site: right antecubital; zb 20:09 Follow up: Response: No adverse reaction rr5 18:54 Drug: Flomax 0.4 mg Route: PO; zb 20:09 Follow up: Response: No adverse reaction rr5 Disposition: 07/17/20 18:52 Discharged to Home. Impression: Calculus of ureter. - Condition is Stable. - Discharge Instructions: Kidney Stones, Dietary Guidelines to Help Prevent Kidney Stones. - Prescriptions for Zofran ODT 4 mg Oral tablet,disintegrating - place 1 tablet by TRANSLINGUAL route every 8 hours As needed followed by 2 additional 8 mg doses at 8 hour intervals; 20 tablet. Tylenol- Codeine #3 300-30 mg Oral Tablet - take 1 tablet by ORAL route every 6 hours As needed; 20 tablet. - Medication Reconciliation Form, Thank You Letter, Antibiotic Education, Prescription Opioid Use, Work release form form. - Follow up: Private Physician; When: As needed; Reason: Recheck today's complaints, Re-evaluation by your physician. - Problem is new. - Symptoms have improved. Signatures: Dispatcher [employer] EDMS Cindi Vela RN LORRIE iw Darshan Tomlinson MD MD rn Roque, Raymond RN RN rr5 Minerva Crowell RN RN zb Corrections: (The following items were deleted from the chart) 20:09 18:52 07/17/2020 18:52 Discharged to Home. Impression: Calculus of ureter. Condition is rr5 Stable. Forms are Medication Reconciliation Form, Thank You Letter, Antibiotic Education, Prescription Opioid Use. Follow up: Private Physician; When: As needed; Reason: Recheck today's complaints, Re-evaluation by your physician. Problem is new. Symptoms have improved. rn
[2020-07-17] MEDS ORDERED: TAMSULOSIN 0.4 MG SR CAP ONE (19:04)
--- NOTE | 2020-07-17 19:51 | RAD REPORT ---
EXAM DESCRIPTION: US - Scrotum Testicles - 07/17/2020 6:47 pm CLINICAL HISTORY: left testicular pain COMPARISON: SCROTUM TESTICLES dated 11/01/2013 FINDINGS: No testicular mass. Doppler evaluation shows normal bilateral testicular blood flow. No ep ididymis enlargement or hyperemia identified. Small to moderate-size left-sided varicocele present. N o right-sided varicocele seen. No hernia or extratesticular mass. Preliminary findings were provided at the time the study. IMPRESSION: No evidence for torsion or mass lesion. Small to moderate sized left varicocele.
[2020-07-17 20:16] VITALS: TEMP 97.6
[2020-07-17 20:19] VITALS: BP 125/85; O2SAT 99
== END 2020-07-17 20:09 | disposition home or self-care (01) ==
LOC: ER 16:56
DX: N20.1 Calculus of ureter (principal); I10 Essential (primary) hypertension; E03.9 Hypothyroidism, unspecified
CPT/HCPCS: 96365; 85025; 80048; 36415; 80076; 83690; 76377; 74176; 76870; 96375; 99284; J3475; J2405

== ENCOUNTER 2024-08-27 13:08 | Emergency (ER) | payer OTHER ==
--- OUTSIDE RECORDS SUMMARY | 2024-08-27 13:17 | XMS REPORT | Continuity of Care Document ---
Author Name Unknown Address [address] [place] [address] [facility] [address] [place] [address] Care Team Providers Care Top Cutter Name Role Phone Piedad Arreguin Primary Care Physician Megan Mathews Attending Clinician Unavailable Problems Condition Name Condition Details Condition Category Status Onset Date Resolution Date Last Treatment Date Treating Clinician Comments Source Obstructiv e sleep apnea Obstructiv e sleep apnea Problem Active [facility] Hypothyroi dism Hypothyroi dism Problem Active [facility] Pure hyperchole sterolemia Pure hyperchole sterolemia Problem Active [facility] Foot pain, right Foot pain, right Problem Active [facility] Hypertensi on Hypertensi on Problem Active [facility] Gastro-eso phageal reflux disease without esophagiti s Gastro-eso phageal reflux disease without esophagiti s Problem Active [facility] Status post gastrectom y Status post gastrectom y Problem Active [facility] Encounter for removal of sutures Encounter for removal of sutures Problem Active [facility] Body mass index (BMI) of 45.0-49.9 in adult Body mass index (BMI) of 45.0-49.9 in adult Problem Active [facility] Environmen vy allergies Environmen vy allergies Problem Active [facility] Acute nasopharyn gitis [common cold] Acute nasopharyn gitis [common cold] Problem Active [facility] Dizziness Dizziness Problem Active [facility] Seasonal allergies Seasonal allergies Problem Active [facility] Gastroente ritis Gastroente ritis Problem Active [facility] Costochond ritis Costochond ritis Diagnosis Active [facility] Medications Ordered Medication Name Filled Medication Name Start Date Stop Date Current Medication? Ordering Clinician Indication Dosage Frequency Signature (SIG) Comments Components Source levothyroxi ne 175 mcg tablet 1- 00:00: 00 Yes 1mcg Bill Bentley hydroxyzine HCl 25 mg tablet 2023-05 0-04 00:00: 00 Yes 1mg Bill Bentley levothyroxi ne 175 mcg tablet 2023-05 0-04 00:00: 00 Yes 1mcg Bill Bentley sertraline 50 mg tablet 05 00:00: 00 Yes 1mg Bill Bentley levothyroxi ne 175 mcg tablet 10-09 00:00: 00 Yes 1mcg Bill Bentley levothyroxi ne 150 mcg tablet 10-04 00:00: 00 Yes 1mcg Bill Bentley levothyroxi ne 137 mcg tablet 08 00:00: 00 Yes 1mcg Bill Bentley TAKE 1 TABLET EVERY MORNING. 2-24 00:00: 00 Yes 150 Bill Bentley TAKE 1 TABLET BY MOUTH DAILY 2-16 00:00: 00 10-09 00:00 :00 No 137 Bill Bentley TAKE 1 TABLET BY MOUTH DAILY 1-20 00:00: 00 10-09 00:00 :00 No 137 Bill Bentley TAKE 1 TABLET DAILY. 6-14 00:00: 00 10-09 00:00 :00 No 137 Bill Bentley TAKE 1 TABLET EVERY MORNING. -13 00:00: 00 10-09 00:00 :00 No 25 Bill Bentley TAKE 1 TABLET DAILY. 3-10 00:00: 00 10-09 00:00 :00 No 100 Bill Bentley TAKE 1 TABLET DAILY. 3-10 00:00: 00 10-09 00:00 :00 No 5 Bill Bentley TAKE 1 CAPSULE BY MOUTH EVERY MORNING BEFORE BREAKFAST ON EMPTY STOMACH 2 00:00: 00 10-09 00:00 :00 No 13 Bill Bentley TAKE 1 CAPSULE BY MOUTH EVERY MORNING BEFORE BREAKFAST ON EMPTY STOMACH 06-26 00:00: 00 10-09 00:00 :00 No 13 Bill Bentley TAKE 1 CAPSULE EVERY MORNING BEFORE BREAKFAST. 06-24 00:00: 00 10-09 00:00 :00 No 15 Bill Bentley Dose Unknown 06-14 00:00: 00 Yes Bill Bentley TAKE 1 TABLET DAILY. 06-10 00:00: 00 10-09 00:00 :00 No 5 Bill Bentley TAKE 1 TABLET DAILY. 06-10 00:00: 00 10-09 00:00 :00 No 100 Bill Bentley hydroxyzine HCl 25 mg tablet 06-25 00:00: 00 Yes 1mg Bill Bentley levothyroxi ne 100 mcg tablet 06-25 00:00: 00 Yes 1mcg Bill Bentley levothyroxi ne 100 mcg tablet 12-27 00:00: 00 Yes 1mcg Bill Bentley bupropion HCl SR 150 mg tablet,12 hr sustained-r elease 12-25 00:00: 00 Yes 1mg Bill Bentley hydroxyzine HCl 50 mg tablet 12-25 00:00: 00 Yes 1mg Bill Bentley levothyroxi ne 100 mcg capsule 12-25 00:00: 00 Yes 1mcg Bill Bentley Methocarbam ol Methocarbam ol 2- 00:00: 00 07-10 00:00 :00 No Rylee Barron 1 tablet [facility] PredniSONE PredniSONE 2- 00:00: 00 07-05 00:00 :00 No Rylee Barron 1 tablet [facility] Meclizine HCl Meclizine HCl 2018-05 1 00:00: 00 Yes Rylee Barron 1 tablet as needed for vertigo/di zziness [facility] Fluticasone Propionate Fluticasone Propionate 2017-05 00:00: 00 Yes Rylee Barron 1 spray in each nostril [facility] Oseltamivir Phosphate Oseltamivir Phosphate 2017-05 00:00: 00 Yes Rylee Barron 1 capsule [facility] Flonase Flonase 02-19 00:00: 00 Yes Rylee Barron 2 sprays each nostril prn [facility] lisinopril 20 mg-hydrochl orothiazide 12.5 mg tablet 2014-05 00:00: 00 Yes 1mg Bill Bentley levothyroxi ne 125 mcg tablet 2014-05 00:00: 00 Yes 1mcg Bill Bentley lisinopril 20 mg-hydrochl orothiazide 12.5 mg tablet 2014-05 00:00: 00 Yes 1mg Bill Bentley levothyroxi ne 125 mcg tablet 2014-05 00:00: 00 Yes 1mcg Bill Bentley Medrol (Jose Carlos) 4 mg tablets in a dose pack 12-29 00:00: 00 Yes 1mg Bill Bentley levothyroxi ne 125 mcg tablet 07-25 00:00: 00 Yes 1mcg Bill Bentley lisinopril 20 mg-hydrochl orothiazide 12.5 mg tablet 07-24 00:00: 00 Yes 1mg Bill Bentley levothyroxi ne 150 mcg tablet 07-24 00:00: 00 Yes 2mcg Bill Bentley levothyroxi ne 150 mcg tablet 07-24 00:00: 00 Yes 1mcg Bill Bentley Liothyronin e Sodium Liothyronin e Sodium Yes Rylee Barron 1 tablet on an empty stomach [facility] Synthroid Synthroid Yes Rylee Barron 1 tablet on an empty stomach in the morning [facility] Lisinopril Lisinopril Yes Rylee Barron take one tablet by mouth daily [facility] Zofran Zofran Yes Rylee Barron 1 tablet [facility] Vital Signs Vital Name Observation Time Observation Value Comments S ouradam BP Systolic 2024-06-13 17:09:00 144 mm[Hg] Step hen F Mc BP Diastolic 2024-06-13 17:09:00 90 mm[Hg] Lloyd phen F Mc Weight Measured 2024-06-13 17:09:00 247.60 pounds Bill F Mc Height Measured 2024-06-13 17:09:00 68.70 inches Bill F Mc Body Temperature 2024-06-13 17:09:00 99.60 degrees Bill F Mc Heart Rate 2024-06-13 17:09:00 86.00 /min Mary en F Mc Respiratory Rate 2024-06-13 17:09:00 18.00 /min Bill F Mc BP Systolic 2024-03-29 10:59:00 124 mm[Hg] Step hen F Cm BP Diastolic 2024-03-29 10:59:00 82 mm[Hg] Lloyd phen F Mc Weight Measured 2024-03-29 10:59:00 240.00 pounds Bill F Mc Height Measured 2024-03-29 10:59:00 68.70 inches Bill F Mc Body Temperature 2024-03-29 10:59:00 98.30 degrees Bill F Mc Heart Rate 2024-03-29 10:59:00 97.00 /min Mary en F Mc Respiratory Rate 2024-03-29 10:59:00 Bill F Mc BP Systolic 2024-02-29 14:58:00 142 mm[Hg] Step hen F Mc BP Diastolic 2024-02-29 14:58:00 95 mm[Hg] Lloyd phen F Mc Weight Measured 2024-02-29 14:58:00 237.00 pounds Bill F Mc Height Measured 2024-02-29 14:58:00 68.70 inches Bill F Mc Body Temperature 2024-02-29 14:58:00 98.60 degrees Bill F Mc Heart Rate 2024-02-29 14:58:00 71.00 /min Mary en F Mc Respiratory Rate 2024-02-29 14:58:00 Bill F Mc BP Systolic 2023-11-30 13:19:00 134 mm[Hg] Step hen F Mc BP Diastolic 2023-11-30 13:19:00 87 mm[Hg] Lloyd phen F Mc Weight Measured 2023-11-30 13:19:00 229.00 pounds Bill F Mc Height Measured 2023-11-30 13:19:00 68.70 inches Bill F Mc Body Temperature 2023-11-30 13:19:00 97.80 degrees Bill F Mc Heart Rate 2023-11-30 13:19:00 57.00 /min Mary en F Mc Respiratory Rate 2023-11-30 13:19:00 18.00 /min Bill F Mc BP Systolic 2023-07-13 16:31:00 113 mm[Hg] Step hen F Mc BP Diastolic 2023-07-13 16:31:00 75 mm[Hg] Lloyd phen F Mc Weight Measured 2023-07-13 16:31:00 224.80 pounds Bill F Mc Height Measured 2023-07-13 16:31:00 68.70 inches Bill F Mc Body Temperature 2023-07-13 16:31:00 98.20 degrees Bill F Mc Heart Rate 2023-07-13 16:31:00 63.00 /min Mary en F Mc Respiratory Rate 2023-07-13 16:31:00 18.00 /min Bill F Mc BP Systolic 2023-06-16 09:16:00 143 mm[Hg] Step hen F Mc BP Diastolic 2023-06-16 09:16:00 99 mm[Hg] Lloyd phen F Mc Weight Measured 2023-06-16 09:16:00 241.80 pounds Bill F Mc Height Measured 2023-06-16 09:16:00 68.70 inches Bill F Mc Body Temperature 2023-06-16 09:16:00 97.90 degrees Bill F Mc Heart Rate 2023-06-16 09:16:00 55.00 /min Mary en F Mc Respiratory Rate 2023-06-16 09:16:00 18.00 /min Bill F Mc BP Systolic 2022-11-04 10:25:00 125 mm[Hg] Step hen F Mc BP Diastolic 2022-11-04 10:25:00 82 mm[Hg] Lloyd phen F Mc Weight Measured 2022-11-04 10:25:00 252.60 pounds Bill F Mc Height Measured 2022-11-04 10:25:00 68.70 inches Bill F Mc Body Temperature 2022-11-04 10:25:00 98.00 degrees Bill F Mc Heart Rate 2022-11-04 10:25:00 83.00 /min Mary en F Mc Respiratory Rate 2022-11-04 10:25:00 17.00 /min Bill F Cm BP Systolic 2022-07-08 10:17:00 151 mm[Hg] Step hen F Mc BP Diastolic 2022-07-08 10:17:00 99 mm[Hg] Lloyd phen F Mc Weight Measured 2022-07-08 10:17:00 254.00 pounds Bill F Mc Height Measured 2022-07-08 10:17:00 68.70 inches Bill F Mc Body Temperature 2022-07-08 10:17:00 98.20 degrees Bill F Mc Heart Rate 2022-07-08 10:17:00 72.00 /min Mary en F Mc Respiratory Rate 2022-07-08 10:17:00 Bill F Mc BP Systolic 2022-06-24 08:57:00 124 mm[Hg] Step hen F Mc BP Diastolic 2022-06-24 08:57:00 88 mm[Hg] Lloyd phen F Mc Weight Measured 2022-06-24 08:57:00 258.80 pounds Bill F Mc Height Measured 2022-06-24 08:57:00 68.70 inches Bill F Mc Body Temperature 2022-06-24 08:57:00 98.00 degrees Bill F Mc Heart Rate 2022-06-24 08:57:00 74.00 /min Mary en F Mc Respiratory Rate 2022-06-24 08:57:00 18.00 /min Bill F Mc BP Systolic 2022-06-10 09:22:00 137 mm[Hg] Step hen F Mc BP Diastolic 2022-06-10 09:22:00 90 mm[Hg] Lloyd phen F Mc Weight Measured 2022-06-10 09:22:00 265.80 pounds Bill F Mc Height Measured 2022-06-10 09:22:00 68.70 inches Bill F Mc Body Temperature 2022-06-10 09:22:00 98.30 degrees Bill F Mc Heart Rate 2022-06-10 09:22:00 62.00 /min Mary en F Mc Respiratory Rate 2022-06-10 09:22:00 18.00 /min Bill F Mc BP Systolic 2022-06-10 09:03:00 137 mm[Hg] Step hen F Mc BP Diastolic 2022-06-10 09:03:00 90 mm[Hg] Lloyd phen F Mc Weight Measured 2022-06-10 09:03:00 265.80 pounds Bill F Mc Height Measured 2022-06-10 09:03:00 98.60 inches Bill F Mc Body Temperature 2022-06-10 09:03:00 98.30 degrees Bill F Mc Heart Rate 2022-06-10 09:03:00 62.00 /min Mary en F Mc Respiratory Rate 2022-06-10 09:03:00 18.00 /min Bill F Mc BP Systolic 2021-06-25 16:21:00 122 mm[Hg] Step hen F Mc BP Diastolic 2021-06-25 16:21:00 84 mm[Hg] Lloyd phen F Mc Weight Measured 2021-06-25 16:21:00 232.00 pounds Bill F Mc Height Measured 2021-06-25 16:21:00 68.70 inches Bill F Mc Body Temperature 2021-06-25 16:21:00 98.30 degrees Bill F Mc Heart Rate 2021-06-25 16:21:00 72.00 /min Mary en F Mc Respiratory Rate 2021-06-25 16:21:00 17.00 /min Bill F Mc BP Systolic 2020-12-25 13:16:00 127 mm[Hg] Step hen F Mc BP Diastolic 2020-12-25 13:16:00 82 mm[Hg] Lloyd phen F Mc Weight Measured 2020-12-25 13:16:00 231.80 pounds Bill F Mc Height Measured 2020-12-25 13:16:00 68.70 inches Bill F Mc Body Temperature 2020-12-25 13:16:00 98.00 degrees Bill F Mc Heart Rate 2020-12-25 13:16:00 79.00 /min Mary en F Mc Respiratory Rate 2020-12-25 13:16:00 17.00 /min Bill Bentley BP Systolic 2016-03-31 16:37:00 132 mm[Hg] Dutch Bentley BP Diastolic 2016-03-31 16:37:00 90 mm[Hg] Lloyd Bentley Weight Measured 2016-03-31 16:37:00 341.40 pounds Bill Bentley Height Measured 2016-03-31 16:37:00 70.00 inches Bill Bentley Body Temperature 2016-03-31 16:37:00 98.50 degrees Bill Bentley Heart Rate 2016-03-31 16:37:00 69.00 /min Mary Bentely Respiratory Rate 2016-03-31 16:37:00 18.00 /min Bill Bentley Encounters Start Date/Time End Date/Time Encounter Type Admission Type Attending [facility] Care Department Encounter ID Source 2021-06-22 11:04:55 Outpatient [facility] [id number] [facility] 2024-06-13 17:06:28 2024-06-13 17:06:[address] [facility] [id number] Bill Bentley 2024-06-13 00:00:00 2024-06-13 00:00:00 Outpatient Visit S[facility] [id number] Bill Bentley 2024-03-29 10:46:04 2024-03-29 10:46:[address] [facility] [id number] Bill Bentley 2024-03-29 00:00:00 2024-03-29 00:00:00 Outpatient Visit SFA [id number] Bill Bentley 2024-02-29 14:56:09 2024-02-29 14:56:[address] [facility] [id number] Bill Bentley 2024-02-29 00:00:00 2024-02-29 00:00:00 Outpatient Visit SFA [id number] Bill Bentley 2023-10-06 10:18:56 2023-10-06 10:18:56 Outpatient SFA [facility] [id number] Bill Bentley 2023-10-05 15:46:04 2023-10-05 15:46:04 Outpatient SFA [facility] [id number] Bill Bentley 2023-10-05 00:00:00 2023-10-05 00:00:00 Outpatient Visit SFA [id number] Bill Bentley 2023-07-20 13:03:24 2023-07-20 13:03:24 Outpatient SFA [facility] [id number] Bill Bentley 2023-07-13 16:26:32 2023-07-13 16:26:32 Outpatient SFA [facility] [id number] Bill Bentley 2023-06-16 09:09:21 2023-06-16 09:09:21 Outpatient SFA [facility] [id number] Bill Bentley 2022-11-04 10:20:49 2022-11-04 10:20:49 Outpatient SFA [facility] [id number] Bill Bentley 2022-08-05 09:29:28 2022-08-05 09:29:28 Outpatient SFA [facility] [id number] Bill Bentley 2022-07-08 10:06:19 2022-07-08 10:06:19 Outpatient SFA [facility] [id number] Bill Bentley 2022-07-01 09:16:55 2022-07-01 09:16:55 Outpatient SFA [facility] [id number] Bill Bentley 2022-06-24 08:53:09 2022-06-24 08:53:09 Outpatient SFA [facility] [id number] Bill Bentley 2022-06-10 08:54:13 2022-06-10 08:54:13 Outpatient SFA [facility] [id number] Bill Bentley 2019-06-30 09:20:00 2019-06-30 09:20:00 [facility] [id number] 2019-04-01 13:00:00 2019-04-01 13:00:00 [facility] [id number] [facility] 2019-01-24 10:30:00 2019-01-24 10:30:00 [facility] [id number] [facility] 2018-06-11 14:00:00 2018-06-11 14:00:00 [facility] [id number] [facility] 2018-02-19 11:00:00 2018-02-19 11:00:00 [facility] [id number] [facility] 2018-01-07 13:00:00 2018-01-07 13:00:00 [facility] [id number] [facility] 2017-12-10 10:00:00 2017-12-10 10:00:00 [facility] [id number] [facility] 2017-12-03 13:30:00 2017-12-03 13:30:00 [facility] [id number] [facility] 2017-09-07 10:15:00 2017-09-07 10:15:00 [facility] Medicine [id number] [facility] Results Test Description Test Time Test Comments Results Result Co mments Source CT/NG, NAAT, [id number] 00:00:00* Test Item Value Reference Range Interpretation Comme nts CHLAMYDIA, NAAT, URINE (test code = 78688) NEGATIVE GONORRHEA, NAAT, URINE (test code = 97688) NEGATIVE Bill F AustinRPR REFLEX TO T. PALLIDUM - [id number] 23:21:07* Test Item Value Reference Range Interpretation Comme nts RPR (test code = 91562) NON-REACTIVE NON-REACTIVE RPR TITER (test code = 3500) NOT INDIC. TITER NOT INDIC. HIV 1/2 4TH GEN, RFLX [id number] 00:52:09* Test Item Value Reference Range Interpretation Comme nts HIV 1/2 4TH GEN, RFLX CONF ( test code = 3514) NON-REACTIVE NON-REACTIVE HEPATITIS PANEL, [id number] 00:52:09* Test Item Value Reference Range Interpretation Comme nts HEPATITIS A IgM (test code = 59100) NON-REACTIVE NON-REACTIVE HEPATITIS B CORE IgM (test code = 4644) NON-REACTIVE NON-REACTIVE HEPATITIS B SURF AG (test code = 2739) NON-REACTIVE NON-REACTIVE HEPATITIS C ANTIBODY (test code = 4675) NON-REACTIVE NON-REACTIVE INTERPRETATION HEPATITIS A: (test code = 2552) (NOTE) Hepatitis A sero logy shows no evidence of acute hepatitis A. INTERPRETATION HEPATITIS B: (test code = 06282) (NOTE) Hepatitis B sero logy shows no evidence of acute hepatitis B andno indication of exposure to hepatitis B virus in the previous benjamin eight months. INTERPRETATION HEPATITIS C: (test code = 46342) (NOTE) Hepatitis C sero logy shows no evidence of exposure to hepatitisC virus at this time. It can take up to 12 months after exposure tothe hepatitis C virus for antibodies to become detectable in the blood in certain patients. UNLESS OTHERWISE INDICATED, ALL TESTING PERFORMED AT [facility] [address] [place] [address] ORDER SELECTOR: ROSY FRYE M.D. CLIA NUMBER [id number] [place]. [id number] TSH, THIRD [id number] 00:25:39* Test Item Value Reference Range Interpretation Comme nts TSH, THIRD GENERATION (test code = 2821) 10.800 UIU/ML 0.400-4.100 H [id number] 00:00:00* Test Item Value Reference Range Interpretation Comme nts TSH, THIRD GENERATION (test code = 2821) 10.800 UIU/ML Bill F AustinHIV 1/2 4TH GEN, RFLX [id number] 00:00:00* Test Item Value Reference Range Interpretation Comme nts HIV 1/2 4TH GEN, RFLX CONF ( test code = 3514) NON-REACTIVE Bill F AustinRPR REFLEX TO T. PALLIDUM - [id number] 00:00:00* Test Item Value Reference Range Interpretation Comme nts RPR (test code = 26150) NON-REACTIVE RPR TITER (test code = 3500) NOT INDIC. TITER Bill BentleyACUTE HEPATITIS [id number] 00:00:00* Test Item Value Reference Range Interpretation Comme nts HEPATITIS A IgM (test code = 58349) NON-REACTIVE HEPATITIS B CORE IgM (test c ode = 4644) NON-REACTIVE HEPATITIS B SURF AG (test co de = 2739) NON-REACTIVE HEPATITIS C ANTIBODY (test c ode = 4675) NON-REACTIVE INTERPRETATION HEPATITIS A: (test code = 2552) (NOTE) INTERPRETATION HEPATITIS B: (test code = 53157) (NOTE) INTERPRETATION HEPATITIS C: (test code = 49223) (NOTE) Bill Loomis, THIRD [id number] 23:20:55* Test Item Value Reference Range Interpretation Comme nts TSH, THIRD GENERATION (test code = 2821) 9.950 UIU/ML 0.400-4.100 H UNLESS OTHERWISE INDICATED, ALL TESTING PERFORMED AT [facility] [address] [place] [address] ORDER SELECTOR: ROSY FRYE M.D. CLIA NUMBER [id number] [place] [place]. [id number] TSH, THIRD [id number] 00:00:00* Test Item Value Reference Range Interpretation Comme nts TSH, THIRD GENERATION (test code = 2821) 9.950 UIU/ML Bill Chu, THIRD [id number] 00:00:00* Test Item Value Reference Range Interpretation Comme nts TSH, THIRD GENERATION (test code = 2821) 9.950 UIU/ML Bill [id number] 00:00:00* Test Item Value Reference Range Interpretation Comme nts TSH, THIRD GENERATION (test code = 2821) 82.900 UIU/ML Bill [id number] 00:00:00* Test Item Value Reference Range Interpretation Comme nts TSH, THIRD GENERATION (test code = 2821) 82.900 UIU/ML Bill [id number] 00:00:00* Test Item Value Reference Range Interpretation Comme nts TSH, THIRD GENERATION (test code = 2821) 82.900 UIU/ML Bill Loomis THIRD [id number] 05:57:33* Test Item Value Reference Range Interpretation Comme nts TSH, THIRD GENERATION (test code = 2821) 11.400 UIU/ML 0.400-4.100 H UNLESS OTHERWISE INDICATED, ALL TESTING PERFORMED AT [facility] [address] [place] [address] ORDER SELECTOR: ROSY FRYE M.D. CLIA NUMBER [id number] [place]. [id number] TSH, THIRD [id number] 00:00:00* Test Item Value Reference Range Interpretation Comme nts TSH, THIRD GENERATION (test code = 2821) 11.400 UIU/ML Bill Loomis THIRD [id number] 00:00:00* Test Item Value Reference Range Interpretation Comme nts TSH, THIRD GENERATION (test code = 2821) 11.400 UIU/ML Bill Loomis THIRD [id number] 00:00:00* Test Item Value Reference Range Interpretation Comme nts TSH, THIRD GENERATION (test code = 2821) 11.400 UIU/ML Bill ChuH THIRD [id number] 00:00:00* Test Item Value Reference Range Interpretation Comme nts TSH, THIRD GENERATION (test code = 2821) 11.400 UIU/ML Bill Loomis RFLX FT4 AND [id number] 02:28:28* Test Item Value Reference Range Interpretation Comme nts TSH RFLX FT4 AND FT3 (test code = 52837) >100.000 UIU/ML 0.400-4.100 H FREE [id number] 02:28:28* Test Item Value Reference Range Interpretation Comme nts FREE T3 (test code = 4273) <1.0 PG/ML 2.2-4.2 L FREE T4 (THYROXINE)2023-06-18 02:28:28* Test Item Value Reference Range Interpretation Comme nts FREE T4 (THYROXINE) (test code = 2823) <0.11 NG/DL 0.80-1.90 L UNLESS OTHERWISE INDICATED, ALL TESTING PERFORMED AT [facility] [address] [place] [address] ORDER SELECTOR: ROSY FRYE M.D. CLIA NUMBER [id number] [place]. [id number] TSH RFLX FT4 AND [id number] 00:00:00* Test Item Value Reference Range Interpretation Comme nts TSH RFLX FT4 AND FT3 (test code = 67844) >100.000 UIU/ML Bill F AustinFREE T3 [REFLEX]2023-06-18 00:00:00* Test Item Value Reference Range Interpretation Comme nts FREE T3 (test code = 4273) <1.0 PG/ML Bill AustinFREE T4 (THYROXINE) [REFLEX]2023-06-18 00:00:00* Test Item Value Reference Range Interpretation Comme nts FREE T4 (THYROXINE) (test co de = 2823) <0.11 NG/DL [facility] [id number] 00:00:00* Test Item Value Reference Range Interpretation Comme nts TSH RFLX FT4 AND FT3 (test code = 42519) >100.000 UIU/ML Bill AustinFREE T3 [REFLEX]2023-06-18 00:00:00* Test Item Value Reference Range Interpretation Comme nts FREE T3 (test code = 4273) <1.0 PG/ML Bill AustinFREE T4 (THYROXINE) [REFLEX]2023-06-18 00:00:00* Test Item Value Reference Range Interpretation Comme nts FREE T4 (THYROXINE) (test co de = 2823) <0.11 NG/DL Bill F AbbottTSH RFLX FT4 AND [id number] 00:00:00* Test Item Value Reference Range Interpretation Comme nts TSH RFLX FT4 AND FT3 (test code = 81044) >100.000 UIU/ML Bill F AustinFREE T3 [REFLEX]2023-06-18 00:00:00* Test Item Value Reference Range Interpretation Comme nts FREE T3 (test code = 4273) <1.0 PG/ML Bill AustinFREE T4 (THYROXINE) [REFLEX]2023-06-18 00:00:00* Test Item Value Reference Range Interpretation Comme nts FREE T4 (THYROXINE) (test co de = 2823) <0.11 NG/DL Bill Chu RFLX FT4 AND [id number] 00:00:00* Test Item Value Reference Range Interpretation Comme nts TSH RFLX FT4 AND FT3 (test code = 38678) >100.000 UIU/ML Bill BentleyROMEO T3 [REFLEX]2023-06-18 00:00:00* Test Item Value Reference Range Interpretation Comme nts FREE T3 (test code = 4273) <1.0 PG/ML [facility] T[facility] (THYROXINE) [REFLEX]2023-06-18 00:00:00* Test Item Value Reference Range Interpretation Comme nts FREE T4 (THYROXINE) (test co de = 2823) <0.11 NG/DL Bill Loomis, THIRD [id number] 21:02:32* Test Item Value Reference Range Interpretation Comme nts TSH, THIRD GENERATION (test code = 2821) >100.000 UIU/ML 0.400-4.100 H UNLESS OTHERWISE INDICATED, ALL TESTING PERFORMED AT [facility] [address] [place] [address] ORDER SELECTOR: ROSY FRYE M.D. CLIA NUMBER [id number] [place] [place]. [id number] TSH, THIRD [id number] 00:00:00* Test Item Value Reference Range Interpretation Comme nts TSH, THIRD GENERATION (test code = 2821) >100.000 UIU/ML Bill Loomis, THIRD [id number] 00:00:00* Test Item Value Reference Range Interpretation Comme nts TSH, THIRD GENERATION (test code = 2821) >100.000 UIU/ML Bill Chu, THIRD [id number] 00:00:00* Test Item Value Reference Range Interpretation Comme nts TSH, THIRD GENERATION (test code = 2821) >100.000 UIU/ML Bill Chu, THIRD [id number] 00:00:00* Test Item Value Reference Range Interpretation Comme nts TSH, THIRD GENERATION (test code = 2821) >100.000 UIU/ML Bill BentleyLIPID [id number] 04:56:26* Test Item Value Reference Range Interpretation Comme nts CHOLESTEROL (test code = 2210) 219 MG/DL <200 H TRIGLYCERIDES (test code = 2232) 63 MG/DL <150 HDL CHOLESTEROL (test code = 2220) 58 MG/DL >39 CALC LDL CHOL (test code = 2237) 145 MG/DL <100 H NOTE: CALCULATED LDL IS BASED ON GIGI-ARRIAZA METHOD WHICHINCLUDES ADJUSTABLE TRIGLYCERIDE:VLDL CHOLESTEROL RATIO.THIS FACTOR VARIES BY MEASURED TRIGLYCERIDE AND NON-HDLCHOLESTEROL CONCENTRATIONS WITH INCREASED CALCULATED LDL SEENIN HIGHER TRIGLYCERIDE OR LOWER NON-HDL SPECIMENS. FOR MOREINFORMATION, SEE CLIENT ANNOUNCEMENT AT [email or web address] RISK RATIO LDL/HDL (test code = 2238) 2.50 RATIO <3.55 [facility] has i mportant pathology staff changes effective 07/26/2022. New pathology staff will provide uninterrupted, excellent patient care and clinical consultation. See URL: [email or web address]. UNLESS OTHERWISE INDICATED, ALL TESTING PERFORMED AT [facility] [address] [place] [address] ORDER SELECTOR: ROSY FRYE M.D. CLIA NUMBER [id number] [place] [place]. [id number] TSH, THIRD [id number] 02:22:31* Test Item Value Reference Range Interpretation Comme nts TSH, THIRD GENERATION (test code = 2821) 19.500 UIU/ML 0.400-4.100 H TSH, THIRD [id number] 00:00:00* Test Item Value Reference Range Interpretation Comme nts TSH, THIRD GENERATION (test code = 2821) 19.500 UIU/ML Bill BentleyLIPID [id number] 00:00:00* Test Item Value Reference Range Interpretation Comme nts CHOLESTEROL (test code = 2210) 219 MG/DL TRIGLYCERIDES (test code = 2232) 63 MG/DL HDL CHOLESTEROL (test code = 2220) 58 MG/DL CALC LDL CHOL (test code = 2237) 145 MG/DL RISK RATIO LDL/HDL (test cod e = 2238) 2.50 RATIO Bill BentleyTSH, THIRD [id number] 00:00:00* Test Item Value Reference Range Interpretation Comme nts TSH, THIRD GENERATION (test code = 2821) 19.500 UIU/ML Bill BentleyLIPID [id number] 00:00:00* Test Item Value Reference Range Interpretation Comme nts CHOLESTEROL (test code = 2210) 219 MG/DL TRIGLYCERIDES (test code = 2232) 63 MG/DL HDL CHOLESTEROL (test code = 2220) 58 MG/DL CALC LDL CHOL (test code = 2237) 145 MG/DL RISK RATIO LDL/HDL (test cod e = 2238) 2.50 RATIO Bill Loomis, THIRD [id number] 00:00:00* Test Item Value Reference Range Interpretation Comme nts TSH, THIRD GENERATION (test code = 2821) 19.500 UIU/ML Bill BentleyLIPID [id number] 00:00:00* Test Item Value Reference Range Interpretation Comme nts CHOLESTEROL (test code = 2210) 219 MG/DL TRIGLYCERIDES (test code = 2232) 63 MG/DL HDL CHOLESTEROL (test code = 2220) 58 MG/DL CALC LDL CHOL (test code = 2237) 145 MG/DL RISK RATIO LDL/HDL (test cod e = 2238) 2.50 RATIO Bill Loomis, THIRD [id number] 00:00:00* Test Item Value Reference Range Interpretation Comme nts TSH, THIRD GENERATION (test code = 2821) 19.500 UIU/ML Bill BentleyLIPID [id number] 00:00:00* Test Item Value Reference Range Interpretation Comme nts CHOLESTEROL (test code = 2210) 219 MG/DL TRIGLYCERIDES (test code = 2232) 63 MG/DL HDL CHOLESTEROL (test code = 2220) 58 MG/DL CALC LDL CHOL (test code = 2237) 145 MG/DL RISK RATIO LDL/HDL (test cod e = 2238) 2.50 RATIO Bill BentleyTESTOSTERONE, FREE/TOTAL WITH [id number] 03:38:38* Test Item Value Reference Range Interpretation Comme nts TESTOSTERONE (test code = 2830) 781 NG/DL 300-890 SEX HORM BIND GLOBULIN (test code = 4933) 67.0 NMOL/L 16.5-55.9 H CALC FREE TESTOSTERONE (test code = 34082) 108.3 PG/ML 47.0-244.0 [facility] has important pathology staff changes effective 07/26/2022. New pathology staff will provide uninterrupted, excellent patient care and clinical consultation. See URL: [email or web address]. UNLESS OTHERWISE INDICATED, ALL TESTING PERFORMED AT [facility] [address] [place] [address] CLIA: [id number], CAP: [id number] PSA, [id number] 03:38:20* Test Item Value Reference Range Interpretation Comme nts PSA, TOTAL (test code = 2606) 0.89 NG/ML See_Comment NOTE: Methodolog y is Thalia Curz Electrochemiluminescence Immunoassay traceable to WHO reference standard 96/760. [Automated message] The system which generated this result transmitted reference range: <=4.00. The reference range was not used to interpret this result as normal/abnormal. TSH + FREE T4 [id number] 03:38:20* Test Item Value Reference Range Interpretation Comme nts TSH, THIRD GENERATION (test code = 2821) 37.200 UIU/ML 0.400-4.100 H FREE T4 (THYROXINE) (test co de = 2823) 1.22 NG/DL 0.80-1.90 PSA, [id number] 00:00:00* Test Item Value Reference Range Interpretation Comme nts PSA, TOTAL (test code = 2606) 0.89 NG/ML Bill F AustinTSH + FREE T4 [id number] 00:00:00* Test Item Value Reference Range Interpretation Comme nts TSH, THIRD GENERATION (test code = 2821) 37.200 UIU/ML FREE T4 (THYROXINE) (test co de = 2823) 1.22 NG/DL Bill F AustinTESTOSTERONE, FREE/TOTAL WITH [id number] 00:00:00* Test Item Value Reference Range Interpretation Comme nts TESTOSTERONE (test code = 2830) 781 NG/DL SEX HORM BIND GLOBULIN (test code = 4933) 67.0 NMOL/L CALC FREE TESTOSTERONE (test code = 94261) 108.3 PG/ML Bill F AustinPSA, [id number] 00:00:00* Test Item Value Reference Range Interpretation Comme nts PSA, TOTAL (test code = 2606) 0.89 NG/ML Bill F AustinTSH + FREE T4 [id number] 00:00:00* Test Item Value Reference Range Interpretation Comme nts TSH, THIRD GENERATION (test code = 2821) 37.200 UIU/ML FREE T4 (THYROXINE) (test co de = 2823) 1.22 NG/DL Bill Smith AustinTESTOSTERONE, FREE/TOTAL WITH [id number] 00:00:00* Test Item Value Reference Range Interpretation Comme nts TESTOSTERONE (test code = 2830) 781 NG/DL SEX HORM BIND GLOBULIN (test code = 4933) 67.0 NMOL/L CALC FREE TESTOSTERONE (test code = 10089) 108.3 PG/ML Bill BentleyPSA, [id number] 00:00:00* Test Item Value Reference Range Interpretation Comme nts PSA, TOTAL (test code = 2606) 0.89 NG/ML Bill Smith AustinTSH + FREE T4 [id number] 00:00:00* Test Item Value Reference Range Interpretation Comme nts TSH, THIRD GENERATION (test code = 2821) 37.200 UIU/ML FREE T4 (THYROXINE) (test co de = 2823) 1.22 NG/DL Bill Smith AustinTESTOSTERONE, FREE/TOTAL WITH [id number] 00:00:00* Test Item Value Reference Range Interpretation Comme nts TESTOSTERONE (test code = 2830) 781 NG/DL SEX HORM BIND GLOBULIN (test code = 4933) 67.0 NMOL/L CALC FREE TESTOSTERONE (test code = 58914) 108.3 PG/ML Bill BentleyPSA, [id number] 00:00:00* Test Item Value Reference Range Interpretation Comme nts PSA, TOTAL (test code = 2606) 0.89 NG/ML Bill Smith AustinTSH + FREE T4 [id number] 00:00:00* Test Item Value Reference Range Interpretation Comme nts TSH, THIRD GENERATION (test code = 2821) 37.200 UIU/ML FREE T4 (THYROXINE) (test co de = 2823) 1.22 NG/DL Bill Smith AustinTESTOSTERONE, FREE/TOTAL WITH [id number] 00:00:00* Test Item Value Reference Range Interpretation Comme nts TESTOSTERONE (test code = 2830) 781 NG/DL SEX HORM BIND GLOBULIN (test code = 4933) 67.0 NMOL/L CALC FREE TESTOSTERONE (test code = 09905) 108.3 PG/ML Bill BentleyTSH REFLEX TO FREE [id number] 02:37:33* Test Item Value Reference Range Interpretation Comme nts TSH REFLEX TO FREE T4 (test code = 2834) 47.400 UIU/ML 0.400-4.100 H FREE T4 (THYROXINE)2022-07-03 02:37:33* Test Item Value Reference Range Interpretation Comme nts FREE T4 (THYROXINE) (test code = 2823) 1.11 NG/DL 0.80-1.90 [facility] has i mportant pathology staff changes effective 07/26/2022. New pathology staff will provide uninterrupted, excellent patient care and clinical consultation. See URL: [email or web address]. UNLESS OTHERWISE INDICATED, ALL TESTING PERFORMED AT [facility] [address] [place] [address] CLIA: [id number], CAP: [id number] TSH REFLEX TO FREE [id number] 00:00:00* Test Item Value Reference Range Interpretation Comme nts TSH REFLEX TO FREE T4 (test code = 2834) 47.400 UIU/ML Bill Smith AustinFREE T4 (THYROXINE) [REFLEX]2022-07-03 00:00:00* Test Item Value Reference Range Interpretation Comme nts FREE T4 (THYROXINE) (test co de = 2823) 1.11 NG/DL Bill BentleyTSH REFLEX TO FREE [id number] 00:00:00* Test Item Value Reference Range Interpretation Comme nts TSH REFLEX TO FREE T4 (test code = 2834) 47.400 UIU/ML Bill Smith AustinFREE T4 (THYROXINE) [REFLEX]2022-07-03 00:00:00* Test Item Value Reference Range Interpretation Comme nts FREE T4 (THYROXINE) (test co de = 2823) 1.11 NG/DL Bill Smith AustinTSH REFLEX TO FREE [id number] 00:00:00* Test Item Value Reference Range Interpretation Comme nts TSH REFLEX TO FREE T4 (test code = 2834) 47.400 UIU/ML Bill F AustinFREE T4 (THYROXINE) [REFLEX]2022-07-03 00:00:00* Test Item Value Reference Range Interpretation Comme nts FREE T4 (THYROXINE) (test co de = 2823) 1.11 NG/DL Bill ChuH REFLEX TO FREE [id number] 00:00:00* Test Item Value Reference Range Interpretation Comme nts TSH REFLEX TO FREE T4 (test code = 2834) 47.400 UIU/ML Bill Dubon T4 (THYROXINE) [REFLEX]2022-07-03 00:00:00* Test Item Value Reference Range Interpretation Comme nts FREE T4 (THYROXINE) (test co de = 2823) 1.11 NG/DL Bill ChuH, THIRD [id number] 01:59:49* Test Item Value Reference Range Interpretation Comme nts TSH, THIRD GENERATION (test code = 2821) 96.300 UIU/ML 0.400-4.100 H COMPREHENSIVE METABOLIC [id number] 00:01:28* Test Item Value Reference Range Interpretation Comme nts GLUCOSE (test code = 2217) 77 MG/DL 70-99 BUN (test code = 2207) 16 MG/DL 6-20 CREATININE (test code = 2214) 1.32 MG/DL 0.80-1.40 eGFR (2020 CKD-EPI) (test code = 19662) 68 ML/MIN/1.73 >60 CALC BUN/CREAT (test code = 2235) 12 RATIO 6-28 SODIUM (test code = 223) 144 MEQ/L 133-146 POTASSIUM (test code = 2228) 4.0 MEQ/L 3.5-5.4 CHLORIDE (test code = 2215) 103 MEQ/L 95-107 CARBON DIOXIDE (test code = 2206) 21 MEQ/L 19-31 CALCIUM (test code = 2209) 10.2 MG/DL 8.5-10.5 PROTEIN, TOTAL (test code = 222) 7.2 G/DL 6.1-8.3 ALBUMIN (test code = 1) 5.0 G/DL 3.5-5.2 CALC GLOBULIN (test code = 2240) 2.2 G/DL 1.9-3.7 CALC A/G RATIO (test code = 2234) 2.3 RATIO 1.0-2.6 BILIRUBIN, TOTAL (test code = 2206) 0.7 MG/DL See_Comment [Automated me ssage] The system which generated this result transmitted reference range: <=1.2. The reference range was not used to interpret this result as normal/abnormal. ALKALINE PHOSPHATASE (test code = 2204) 45 U/L 40-119 AST (test code = 2218) 24 U/L 9-50 ALT (test code = 2219) 29 U/L 5-50 LIPID [id number] 00:01:28* Test Item Value Reference Range Interpretation Comme nts CHOLESTEROL (test code = 2210) 298 MG/DL <200 H TRIGLYCERIDES (test code = 2232) 70 MG/DL <150 HDL CHOLESTEROL (test code = 2220) 66 MG/DL >39 CALC LDL CHOL (test code = 2237) 214 MG/DL <100 H NOTE: CALCULATED LDL IS BASED ON GIGI-ARRIAZA METHOD WHICHINCLUDES ADJUSTABLE TRIGLYCERIDE:VLDL CHOLESTEROL RATIO.THIS FACTOR VARIES BY MEASURED TRIGLYCERIDE AND NON-HDLCHOLESTEROL CONCENTRATIONS WITH INCREASED CALCULATED LDL SEENIN HIGHER TRIGLYCERIDE OR LOWER NON-HDL SPECIMENS. FOR MOREINFORMATION, SEE CLIENT ANNOUNCEMENT AT [email or web address]-C RISK RATIO LDL/HDL (test code = 2238) 3.24 RATIO <3.55 UNLESS OTHERW ISE INDICATED, [facility] [address] [place] [address] ORDER SELECTOR: FARHAT MADRID M.D. CLIA NUMBER [id number] [facility] [place]. [id number] TSH, THIRD [id number] 00:00:00* Test Item Value Reference Range Interpretation Comme nts TSH, THIRD GENERATION (test code = 2821) 96.300 UIU/ML Bill BentleyCOMPREHENSIVE METABOLIC [id number] 00:00:00* Test Item Value Reference Range Interpretation Comme nts GLUCOSE (test code = 2217) 77 MG/DL BUN (test code = 2208) 16 MG/DL CREATININE (test code = 2214) 1.32 MG/DL eGFR (2020 CKD-EPI) (test co de = 14023) 68 ML/MIN/1.73 CALC BUN/CREAT (test code = 2235) 12 RATIO SODIUM (test code = 2231) 144 MEQ/L POTASSIUM (test code = 2228) 4.0 MEQ/L CHLORIDE (test code = 2215) 103 MEQ/L CARBON DIOXIDE (test code = 2206) 21 MEQ/L CALCIUM (test code = 2209) 10.2 MG/DL PROTEIN, TOTAL (test code = 2229) 7.2 G/DL ALBUMIN (test code = 2201) 5.0 G/DL CALC GLOBULIN (test code = 2240) 2.2 G/DL CALC A/G RATIO (test code = 2234) 2.3 RATIO BILIRUBIN, TOTAL (test code = 2207) 0.7 MG/DL ALKALINE PHOSPHATASE (test code = 2204) 45 U/L AST (test code = 2218) 24 U/L ALT (test code = 2219) 29 U/L Bill BentleyLIPID [id number] 00:00:00* Test Item Value Reference Range Interpretation Comme nts CHOLESTEROL (test code = 2210) 298 MG/DL TRIGLYCERIDES (test code = 2232) 70 MG/DL HDL CHOLESTEROL (test code = 2220) 66 MG/DL CALC LDL CHOL (test code = 2237) 214 MG/DL RISK RATIO LDL/HDL (test cod e = 2238) 3.24 RATIO Bill BentleyTSH, THIRD [id number] 00:00:00* Test Item Value Reference Range Interpretation Comme nts TSH, THIRD GENERATION (test code = 2821) 96.300 UIU/ML Bill BentleyCOMPREHENSIVE METABOLIC [id number] 00:00:00* Test Item Value Reference Range Interpretation Comme nts GLUCOSE (test code = 2217) 77 MG/DL BUN (test code = 2208) 16 MG/DL CREATININE (test code = 2214) 1.32 MG/DL eGFR (2020 CKD-EPI) (test co de = 23292) 68 ML/MIN/1.73 CALC BUN/CREAT (test code = 2235) 12 RATIO SODIUM (test code = 2231) 144 MEQ/L POTASSIUM (test code = 2228) 4.0 MEQ/L CHLORIDE (test code = 2215) 103 MEQ/L CARBON DIOXIDE (test code = 2206) 21 MEQ/L CALCIUM (test code = 2209) 10.2 MG/DL PROTEIN, TOTAL (test code = 2229) 7.2 G/DL ALBUMIN (test code = 2201) 5.0 G/DL CALC GLOBULIN (test code = 2240) 2.2 G/DL CALC A/G RATIO (test code = 2234) 2.3 RATIO BILIRUBIN, TOTAL (test code = 2207) 0.7 MG/DL ALKALINE PHOSPHATASE (test code = 2204) 45 U/L AST (test code = 2218) 24 U/L ALT (test code = 2219) 29 U/L Bill BentleyLIPID [id number] 00:00:00* Test Item Value Reference Range Interpretation Comme nts CHOLESTEROL (test code = 2210) 298 MG/DL TRIGLYCERIDES (test code = 2232) 70 MG/DL HDL CHOLESTEROL (test code = 2220) 66 MG/DL CALC LDL CHOL (test code = 2237) 214 MG/DL RISK RATIO LDL/HDL (test cod e = 2238) 3.24 RATIO Bill BentleyTSH, THIRD [id number] 00:00:00* Test Item Value Reference Range Interpretation Comme nts TSH, THIRD GENERATION (test code = 2821) 96.300 UIU/ML Bill BentleyCOMPREHENSIVE METABOLIC [id number] 00:00:00* Test Item Value Reference Range Interpretation Comme nts GLUCOSE (test code = 2217) 77 MG/DL BUN (test code = 2208) 16 MG/DL CREATININE (test code = 2214) 1.32 MG/DL eGFR (2020 CKD-EPI) (test co de = 93055) 68 ML/MIN/1.73 CALC BUN/CREAT (test code = 2235) 12 RATIO SODIUM (test code = 2231) 144 MEQ/L POTASSIUM (test code = 2228) 4.0 MEQ/L CHLORIDE (test code = 2215) 103 MEQ/L CARBON DIOXIDE (test code = 2206) 21 MEQ/L CALCIUM (test code = 2209) 10.2 MG/DL PROTEIN, TOTAL (test code = 2229) 7.2 G/DL ALBUMIN (test code = 2201) 5.0 G/DL CALC GLOBULIN (test code = 2240) 2.2 G/DL CALC A/G RATIO (test code = 2234) 2.3 RATIO BILIRUBIN, TOTAL (test code = 2207) 0.7 MG/DL ALKALINE PHOSPHATASE (test code = 2204) 45 U/L AST (test code = 2218) 24 U/L ALT (test code = 2219) 29 U/L Bill BentleyLIPID [id number] 00:00:00* Test Item Value Reference Range Interpretation Comme nts CHOLESTEROL (test code = 2210) 298 MG/DL TRIGLYCERIDES (test code = 2232) 70 MG/DL HDL CHOLESTEROL (test code = 2220) 66 MG/DL CALC LDL CHOL (test code = 2237) 214 MG/DL RISK RATIO LDL/HDL (test cod e = 2238) 3.24 RATIO Bill ChuH, THIRD [id number] 00:00:00* Test Item Value Reference Range Interpretation Comme nts TSH, THIRD GENERATION (test code = 2821) 96.300 UIU/ML Bill BentleyCOMPREHENSIVE METABOLIC [id number] 00:00:00* Test Item Value Reference Range Interpretation Comme nts GLUCOSE (test code = 2217) 77 MG/DL BUN (test code = 2208) 16 MG/DL CREATININE (test code = 2214) 1.32 MG/DL eGFR (2020 CKD-EPI) (test co de = 95240) 68 ML/MIN/1.73 CALC BUN/CREAT (test code = 2235) 12 RATIO SODIUM (test code = 2231) 144 MEQ/L POTASSIUM (test code = 2228) 4.0 MEQ/L CHLORIDE (test code = 2215) 103 MEQ/L CARBON DIOXIDE (test code = 2206) 21 MEQ/L CALCIUM (test code = 2209) 10.2 MG/DL PROTEIN, TOTAL (test code = 2229) 7.2 G/DL ALBUMIN (test code = 2201) 5.0 G/DL CALC GLOBULIN (test code = 2240) 2.2 G/DL CALC A/G RATIO (test code = 2234) 2.3 RATIO BILIRUBIN, TOTAL (test code = 2207) 0.7 MG/DL ALKALINE PHOSPHATASE (test code = 2204) 45 U/L AST (test code = 2218) 24 U/L ALT (test code = 2219) 29 U/L Bill BentleyLIPID [id number] 00:00:00* Test Item Value Reference Range Interpretation Comme nts CHOLESTEROL (test code = 2210) 298 MG/DL TRIGLYCERIDES (test code = 2232) 70 MG/DL HDL CHOLESTEROL (test code = 2220) 66 MG/DL CALC LDL CHOL (test code = 2237) 214 MG/DL RISK RATIO LDL/HDL (test cod e = 2238) 3.24 RATIO Bill BentleyCOMPREHENSIVE METABOLIC [id number] 00:00:00* Test Item Value Reference Range Interpretation Comme nts GLUCOSE (test code = 2217) 83 MG/DL BUN (test code = 2208) 20 MG/DL CREATININE (test code = 2214) 1.75 MG/DL eGFR AMER. (test cod e = 06572) 56 ML/MIN/1.73 eGFR NON- AMER. (test code = 14999) 48 ML/MIN/1.73 CALC BUN/CREAT (test code = 2235) 11 RATIO SODIUM (test code = 2231) 140 MEQ/L POTASSIUM (test code = 2228) 4.0 MEQ/L CHLORIDE (test code = 2215) 95 MEQ/L CARBON DIOXIDE (test code = 2206) 17 MEQ/L CALCIUM (test code = 2209) 9.5 MG/DL PROTEIN, TOTAL (test code = 2229) 7.2 G/DL ALBUMIN (test code = 2201) 4.8 G/DL CALC GLOBULIN (test code = 2240) 2.4 G/DL CALC A/G RATIO (test code = 2234) 2.0 RATIO BILIRUBIN, TOTAL (test code = 2207) 0.4 MG/DL ALKALINE PHOSPHATASE (test code = 2204) 50 U/L AST (test code = 2218) 58 U/L ALT (test code = 2219) 92 U/L Bill BentleyLIPID [id number] 00:00:00* Test Item Value Reference Range Interpretation Comme nts CHOLESTEROL (test code = 2210) 314 MG/DL TRIGLYCERIDES (test code = 2232) 262 MG/DL HDL CHOLESTEROL (test code = 2220) 63 MG/DL CALC LDL CHOL (test code = 2237) 199 MG/DL RISK RATIO LDL/HDL (test cod e = 2238) 3.15 RATIO Bill BentleyHEMOGLOBIN [id number] 00:00:00* Test Item Value Reference Range Interpretation Comme nts HEMOGLOBIN A1c (test code = 25423) 5.4 % Bill BentleyTHYROID II PROFILE (T3U, T4, T7, TSH)2016-04-03 00:00:00* Test Item Value Reference Range Interpretation Comme nts T3 UPTAKE (test code = 2817) 25.0 % T4 (THYROXINE) (test code = 2819) 1.0 UG/DL CALCULATED T7 (FTI) (test co de = 2820) 0.25 TSH (test code = 2821) >150.0 UIU/ML Bill BentleyCOMPREHENSIVE METABOLIC [id number] 00:00:00* Test Item Value Reference Range Interpretation Comme nts GLUCOSE (test code = 2217) 83 MG/DL BUN (test code = 2208) 20 MG/DL CREATININE (test code = 2214) 1.75 MG/DL eGFR AMER. (test cod e = 81017) 56 ML/MIN/1.73 eGFR NON- AMER. (test code = 38705) 48 ML/MIN/1.73 CALC BUN/CREAT (test code = 2235) 11 RATIO SODIUM (test code = 2231) 140 MEQ/L POTASSIUM (test code = 2228) 4.0 MEQ/L CHLORIDE (test code = 2215) 95 MEQ/L CARBON DIOXIDE (test code = 2206) 17 MEQ/L CALCIUM (test code = 2209) 9.5 MG/DL PROTEIN, TOTAL (test code = 2229) 7.2 G/DL ALBUMIN (test code = 2201) 4.8 G/DL CALC GLOBULIN (test code = 2240) 2.4 G/DL CALC A/G RATIO (test code = 2234) 2.0 RATIO BILIRUBIN, TOTAL (test code = 2207) 0.4 MG/DL ALKALINE PHOSPHATASE (test code = 2204) 50 U/L AST (test code = 2218) 58 U/L ALT (test code = 2219) 92 U/L Bill Smith AustinLIPID [id number] 00:00:00* Test Item Value Reference Range Interpretation Comme nts CHOLESTEROL (test code = 2210) 314 MG/DL TRIGLYCERIDES (test code = 2232) 262 MG/DL HDL CHOLESTEROL (test code = 2220) 63 MG/DL CALC LDL CHOL (test code = 2237) 199 MG/DL RISK RATIO LDL/HDL (test cod e = 2238) 3.15 RATIO Bill BentleyHEMOGLOBIN [id number] 00:00:00* Test Item Value Reference Range Interpretation Comme nts HEMOGLOBIN A1c (test code = 07814) 5.4 % Bill BentleyTHYROID II PROFILE (T3U, T4, T7, TSH)2016-04-03 00:00:00* Test Item Value Reference Range Interpretation Comme nts T3 UPTAKE (test code = 2817) 25.0 % T4 (THYROXINE) (test code = 2819) 1.0 UG/DL CALCULATED T7 (FTI) (test co de = 2820) 0.25 TSH (test code = 2821) >150.0 UIU/ML Bill BentleyCOMPREHENSIVE METABOLIC [id number] 00:00:00* Test Item Value Reference Range Interpretation Comme nts GLUCOSE (test code = 2217) 83 MG/DL BUN (test code = 2208) 20 MG/DL CREATININE (test code = 2214) 1.75 MG/DL eGFR AMER. (test cod e = 15173) 56 ML/MIN/1.73 eGFR NON- AMER. (test code = 06263) 48 ML/MIN/1.73 CALC BUN/CREAT (test code = 2235) 11 RATIO SODIUM (test code = 2231) 140 MEQ/L POTASSIUM (test code = 2228) 4.0 MEQ/L CHLORIDE (test code = 2215) 95 MEQ/L CARBON DIOXIDE (test code = 2206) 17 MEQ/L CALCIUM (test code = 2209) 9.5 MG/DL PROTEIN, TOTAL (test code = 2229) 7.2 G/DL ALBUMIN (test code = 2201) 4.8 G/DL CALC GLOBULIN (test code = 2240) 2.4 G/DL CALC A/G RATIO (test code = 2234) 2.0 RATIO BILIRUBIN, TOTAL (test code = 2207) 0.4 MG/DL ALKALINE PHOSPHATASE (test code = 2204) 50 U/L AST (test code = 2218) 58 U/L ALT (test code = 2219) 92 U/L Bill BentleyLIPID [id number] 00:00:00* Test Item Value Reference Range Interpretation Comme nts CHOLESTEROL (test code = 2210) 314 MG/DL TRIGLYCERIDES (test code = 2232) 262 MG/DL HDL CHOLESTEROL (test code = 2220) 63 MG/DL CALC LDL CHOL (test code = 2237) 199 MG/DL RISK RATIO LDL/HDL (test cod e = 2238) 3.15 RATIO Bill BentleyHEMOGLOBIN [id number] 00:00:00* Test Item Value Reference Range Interpretation Comme nts HEMOGLOBIN A1c (test code = 23400) 5.4 % Bill BentleyTHYROID II PROFILE (T3U, T4, T7, TSH)2016-04-03 00:00:00* Test Item Value Reference Range Interpretation Comme nts T3 UPTAKE (test code = 2817) 25.0 % T4 (THYROXINE) (test code = 2819) 1.0 UG/DL CALCULATED T7 (FTI) (test co de = 2820) 0.25 TSH (test code = 2821) >150.0 UIU/ML Bill BentleyCOMPREHENSIVE METABOLIC [id number] 00:00:00* Test Item Value Reference Range Interpretation Comme nts GLUCOSE (test code = 2217) 83 MG/DL BUN (test code = 2208) 20 MG/DL CREATININE (test code = 2214) 1.75 MG/DL eGFR AMER. (test cod e = 38332) 56 ML/MIN/1.73 eGFR NON- AMER. (test code = 15797) 48 ML/MIN/1.73 CALC BUN/CREAT (test code = 2235) 11 RATIO SODIUM (test code = 2231) 140 MEQ/L POTASSIUM (test code = 2228) 4.0 MEQ/L CHLORIDE (test code = 2215) 95 MEQ/L CARBON DIOXIDE (test code = 2206) 17 MEQ/L CALCIUM (test code = 2209) 9.5 MG/DL PROTEIN, TOTAL (test code = 2229) 7.2 G/DL ALBUMIN (test code = 2201) 4.8 G/DL CALC GLOBULIN (test code = 2240) 2.4 G/DL CALC A/G RATIO (test code = 2234) 2.0 RATIO BILIRUBIN, TOTAL (test code = 2207) 0.4 MG/DL ALKALINE PHOSPHATASE (test code = 2204) 50 U/L AST (test code = 2218) 58 U/L ALT (test code = 2219) 92 U/L Bill BentleyLIPID [id number] 00:00:00* Test Item Value Reference Range Interpretation Comme nts CHOLESTEROL (test code = 2210) 314 MG/DL TRIGLYCERIDES (test code = 2232) 262 MG/DL HDL CHOLESTEROL (test code = 2220) 63 MG/DL CALC LDL CHOL (test code = 2237) 199 MG/DL RISK RATIO LDL/HDL (test cod e = 2238) 3.15 RATIO Bill BentleyHEMOGLOBIN [id number] 00:00:00* Test Item Value Reference Range Interpretation Comme nts HEMOGLOBIN A1c (test code = 34194) 5.4 % Bill BentleyTHYROID II PROFILE (T3U, T4, T7, TSH)2016-04-03 00:00:00* Test Item Value Reference Range Interpretation Comme nts T3 UPTAKE (test code = 2817) 25.0 % T4 (THYROXINE) (test code = 2819) 1.0 UG/DL CALCULATED T7 (FTI) (test co de = 2820) 0.25 TSH (test code = 2821) >150.0 UIU/ML Bill Smith AustinCBC W/AUTO [id number] 00:00:00* Test Item Value Reference Range Interpretation Comme nts WBC (test code = 1001) 5.9 K/UL RBC (test code = 1002) 4.27 M/UL HEMOGLOBIN (test code = 1003) 13.9 G/DL HEMATOCRIT (test code = 1004) 40.6 % MCV (test code = 1005) 95.1 fL MCH (test code = 1006) 32.6 PG MCHC (test code = 1007) 34.2 G/DL RDW (test code = 1038) 13.7 % NEUTROPHILS (test code = 1008) 60.5 % LYMPHOCYTES (test code = 1010) 30.6 % MONOCYTES (test code = 1011) 5.7 % EOSINOPHILS (test code = 1012) 2.4 % BASOPHILS (test code = 1013) 0.8 % PLATELET COUNT (test code = 1015) 176 K/UL Bill BentleyCBC W/AUTO [id number] 00:00:00* Test Item Value Reference Range Interpretation Comme nts WBC (test code = 1001) 5.9 K/UL RBC (test code = 1002) 4.27 M/UL HEMOGLOBIN (test code = 1003) 13.9 G/DL HEMATOCRIT (test code = 1004) 40.6 % MCV (test code = 1005) 95.1 fL MCH (test code = 1006) 32.6 PG MCHC (test code = 1007) 34.2 G/DL RDW (test code = 1038) 13.7 % NEUTROPHILS (test code = 1008) 60.5 % LYMPHOCYTES (test code = 1010) 30.6 % MONOCYTES (test code = 1011) 5.7 % EOSINOPHILS (test code = 1012) 2.4 % BASOPHILS (test code = 1013) 0.8 % PLATELET COUNT (test code = 1015) 176 K/UL [facility] [id number] 00:00:00* Test Item Value Reference Range Interpretation Comme nts WBC (test code = 1001) 5.9 K/UL RBC (test code = 1002) 4.27 M/UL HEMOGLOBIN (test code = 1003) 13.9 G/DL HEMATOCRIT (test code = 1004) 40.6 % MCV (test code = 1005) 95.1 fL MCH (test code = 1006) 32.6 PG MCHC (test code = 1007) 34.2 G/DL RDW (test code = 1038) 13.7 % NEUTROPHILS (test code = 1008) 60.5 % LYMPHOCYTES (test code = 1010) 30.6 % MONOCYTES (test code = 1011) 5.7 % EOSINOPHILS (test code = 1012) 2.4 % BASOPHILS (test code = 1013) 0.8 % PLATELET COUNT (test code = 1015) 176 K/UL [facility] [id number] 00:00:00* Test Item Value Reference Range Interpretation Comme nts WBC (test code = 1001) 5.9 K/UL RBC (test code = 1002) 4.27 M/UL HEMOGLOBIN (test code = 1003) 13.9 G/DL HEMATOCRIT (test code = 1004) 40.6 % MCV (test code = 1005) 95.1 fL MCH (test code = 1006) 32.6 PG MCHC (test code = 1007) 34.2 G/DL RDW (test code = 1038) 13.7 % NEUTROPHILS (test code = 1008) 60.5 % LYMPHOCYTES (test code = 1010) 30.6 % MONOCYTES (test code = 1011) 5.7 % EOSINOPHILS (test code = 1012) 2.4 % BASOPHILS (test code = 1013) 0.8 % PLATELET COUNT (test code = 1015) 176 K/UL Bill BentleyCOMPREHENSIVE METABOLIC [id number] 00:00:00* Test Item Value Reference Range Interpretation Comme nts GLUCOSE (test code = 2217) 71 MG/DL BUN (test code = 2208) 20 MG/DL CREATININE (test code = 2214) 1.2 MG/DL eGFR AMER. (test cod e = 38518) 82 ML/MIN/1.73 eGFR NON- AMER. (test code = 93765) 68 ML/MIN/1.73 CALCULATED BUN/CREAT (test code = 2235) 17 RATIO SODIUM (test code = 2231) 139 MEQ/L POTASSIUM (test code = 2228) 4.1 MEQ/L CHLORIDE (test code = 2215) 106 MEQ/L CARBON DIOXIDE (test code = 2206) 25 MEQ/L CALCIUM (test code = 2209) 9.5 MG/DL PROTEIN, TOTAL (test code = 2229) 7.1 G/DL ALBUMIN (test code = 2201) 4.4 G/DL CALCULATED GLOBULIN (test co de = 2240) 2.7 G/DL CALCULATED A/G RATIO (test code = 2234) 1.6 RATIO BILIRUBIN, TOTAL (test code = 2207) 0.5 MG/DL ALKALINE PHOSPHATASE (test code = 2204) 44 U/L SGOT (AST) (test code = 2218) 22 U/L SGPT (ALT) (test code = 2219) 31 U/L Bill BentleyLIPID [id number] 00:00:00* Test Item Value Reference Range Interpretation Comme nts CHOLESTEROL (test code = 2210) 252 MG/DL TRIGLYCERIDES (test code = 2232) 170 MG/DL HDL CHOLESTEROL (test code = 2220) 45 MG/DL CALCULATED LDL CHOL (test co de = 2237) 173 MG/DL RISK RATIO LDL/HDL (test cod e = 2238) 3.84 RATIO Bill BentleyCBC W/AUTO [id number] 00:00:00* Test Item Value Reference Range Interpretation Comme nts WBC (test code = 1001) 5.8 K/UL RBC (test code = 1002) 4.61 M/UL HEMOGLOBIN (test code = 1003) 14.0 G/DL HEMATOCRIT (test code = 1004) 41.3 % MCV (test code = 1005) 89.6 fL MCH (test code = 1006) 30.4 PG MCHC (test code = 1007) 33.9 G/DL RDW (test code = 1038) 13.7 % NEUTROPHILS (test code = 1008) 55 % LYMPHOCYTES (test code = 1010) 30 % MONOCYTES (test code = 1011) 11 % EOSINOPHILS (test code = 1012) 4 % BASOPHILS (test code = 1013) 1 % PLATELET COUNT (test code = 1015) 224 K/UL Bill BentleyHEMOGLOBIN [id number] 00:00:00* Test Item Value Reference Range Interpretation Comme [facility] HEMOGLOBIN A1c (test code = 16455) 5.6 % Bill BentleyTHYROID II PROFILE (T3U, T4, T7, TSH)2015-03-06 00:00:00* Test Item Value Reference Range Interpretation Comme nts T3 UPTAKE (test code = 2817) 26.4 % T4 (THYROXINE) (test code = 2819) 3.9 UG/DL CALCULATED T7 (FTI) (test co de = 2820) 1.03 TSH (test code = 2821) 53.1 UIU/ML Bill BentleyCOMPREHENSIVE METABOLIC [id number] 00:00:00* Test Item Value Reference Range Interpretation Comme nts GLUCOSE (test code = 2217) 71 MG/DL BUN (test code = 2208) 20 MG/DL CREATININE (test code = 2214) 1.2 MG/DL eGFR AMER. (test cod e = 12189) 82 ML/MIN/1.73 eGFR NON- AMER. (test code = 61197) 68 ML/MIN/1.73 CALCULATED BUN/CREAT (test code = 2235) 17 RATIO SODIUM (test code = 2231) 139 MEQ/L POTASSIUM (test code = 2228) 4.1 MEQ/L CHLORIDE (test code = 2215) 106 MEQ/L CARBON DIOXIDE (test code = 2206) 25 MEQ/L CALCIUM (test code = 2209) 9.5 MG/DL PROTEIN, TOTAL (test code = 2229) 7.1 G/DL ALBUMIN (test code = 2201) 4.4 G/DL CALCULATED GLOBULIN (test co de = 2240) 2.7 G/DL CALCULATED A/G RATIO (test code = 2234) 1.6 RATIO BILIRUBIN, TOTAL (test code = 2207) 0.5 MG/DL ALKALINE PHOSPHATASE (test code = 2204) 44 U/L SGOT (AST) (test code = 2218) 22 U/L SGPT (ALT) (test code = 2219) 31 U/L Bill Smith McLIPID [id number] 00:00:00* Test Item Value Reference Range Interpretation Comme nts CHOLESTEROL (test code = 2210) 252 MG/DL TRIGLYCERIDES (test code = 2232) 170 MG/DL HDL CHOLESTEROL (test code = 2220) 45 MG/DL CALCULATED LDL CHOL (test co de = 2237) 173 MG/DL RISK RATIO LDL/HDL (test cod e = 2238) 3.84 RATIO Bill Smith McCBC W/AUTO [id number] 00:00:00* Test Item Value Reference Range Interpretation Comme nts WBC (test code = 1001) 5.8 K/UL RBC (test code = 1002) 4.61 M/UL HEMOGLOBIN (test code = 1003) 14.0 G/DL HEMATOCRIT (test code = 1004) 41.3 % MCV (test code = 1005) 89.6 fL MCH (test code = 1006) 30.4 PG MCHC (test code = 1007) 33.9 G/DL RDW (test code = 1038) 13.7 % NEUTROPHILS (test code = 1008) 55 % LYMPHOCYTES (test code = 1010) 30 % MONOCYTES (test code = 1011) 11 % EOSINOPHILS (test code = 1012) 4 % BASOPHILS (test code = 1013) 1 % PLATELET COUNT (test code = 1015) 224 K/UL Bill BentleyHEMOGLOBIN [id number] 00:00:00* Test Item Value Reference Range Interpretation Comme nts HEMOGLOBIN A1c (test code = 34241) 5.6 % Bill F McTHYROID II PROFILE (T3U, T4, T7, TSH)2015-03-06 00:00:00* Test Item Value Reference Range Interpretation Comme nts T3 UPTAKE (test code = 2817) 26.4 % T4 (THYROXINE) (test code = 2819) 3.9 UG/DL CALCULATED T7 (FTI) (test co de = 2820) 1.03 TSH (test code = 2821) 53.1 UIU/ML Bill BentleyCOMPREHENSIVE METABOLIC [id number] 00:00:00* Test Item Value Reference Range Interpretation Comme nts GLUCOSE (test code = 2217) 71 MG/DL BUN (test code = 2208) 20 MG/DL CREATININE (test code = 2214) 1.2 MG/DL eGFR AMER. (test cod e = 11542) 82 ML/MIN/1.73 eGFR NON- AMER. (test code = 47271) 68 ML/MIN/1.73 CALCULATED BUN/CREAT (test code = 2235) 17 RATIO SODIUM (test code = 2231) 139 MEQ/L POTASSIUM (test code = 2228) 4.1 MEQ/L CHLORIDE (test code = 2215) 106 MEQ/L CARBON DIOXIDE (test code = 2206) 25 MEQ/L CALCIUM (test code = 2209) 9.5 MG/DL PROTEIN, TOTAL (test code = 2229) 7.1 G/DL ALBUMIN (test code = 2201) 4.4 G/DL CALCULATED GLOBULIN (test co de = 2240) 2.7 G/DL CALCULATED A/G RATIO (test code = 2234) 1.6 RATIO BILIRUBIN, TOTAL (test code = 2207) 0.5 MG/DL ALKALINE PHOSPHATASE (test code = 2204) 44 U/L SGOT (AST) (test code = 2218) 22 U/L SGPT (ALT) (test code = 2219) 31 U/L Bill BentleyLIPID [id number] 00:00:00* Test Item Value Reference Range Interpretation Comme nts CHOLESTEROL (test code = 2210) 252 MG/DL TRIGLYCERIDES (test code = 2232) 170 MG/DL HDL CHOLESTEROL (test code = 2220) 45 MG/DL CALCULATED LDL CHOL (test co de = 2237) 173 MG/DL RISK RATIO LDL/HDL (test cod e = 2238) 3.84 RATIO Bill BentleyCBC W/AUTO [id number] 00:00:00* Test Item Value Reference Range Interpretation Comme nts WBC (test code = 1001) 5.8 K/UL RBC (test code = 1002) 4.61 M/UL HEMOGLOBIN (test code = 1003) 14.0 G/DL HEMATOCRIT (test code = 1004) 41.3 % MCV (test code = 1005) 89.6 fL MCH (test code = 1006) 30.4 PG MCHC (test code = 1007) 33.9 G/DL RDW (test code = 1038) 13.7 % NEUTROPHILS (test code = 1008) 55 % LYMPHOCYTES (test code = 1010) 30 % MONOCYTES (test code = 1011) 11 % EOSINOPHILS (test code = 1012) 4 % BASOPHILS (test code = 1013) 1 % PLATELET COUNT (test code = 1015) 224 K/UL Bill BentleyHEMOGLOBIN [id number] 00:00:00* Test Item Value Reference Range Interpretation Comme [facility] HEMOGLOBIN A1c (test code = 68620) 5.6 % Bill BentleyTHYROID II PROFILE (T3U, T4, T7, TSH)2015-03-06 00:00:00* Test Item Value Reference Range Interpretation Comme nts T3 UPTAKE (test code = 2817) 26.4 % T4 (THYROXINE) (test code = 2819) 3.9 UG/DL CALCULATED T7 (FTI) (test co de = 2820) 1.03 TSH (test code = 2821) 53.1 UIU/ML Bill BentleyCOMPREHENSIVE METABOLIC [id number] 00:00:00* Test Item Value Reference Range Interpretation Comme nts GLUCOSE (test code = 2217) 71 MG/DL BUN (test code = 2208) 20 MG/DL CREATININE (test code = 2214) 1.2 MG/DL eGFR AMER. (test cod e = 88399) 82 ML/MIN/1.73 eGFR NON- AMER. (test code = 19481) 68 ML/MIN/1.73 CALCULATED BUN/CREAT (test code = 2235) 17 RATIO SODIUM (test code = 2231) 139 MEQ/L POTASSIUM (test code = 2228) 4.1 MEQ/L CHLORIDE (test code = 2215) 106 MEQ/L CARBON DIOXIDE (test code = 2206) 25 MEQ/L CALCIUM (test code = 2209) 9.5 MG/DL PROTEIN, TOTAL (test code = 2229) 7.1 G/DL ALBUMIN (test code = 2201) 4.4 G/DL CALCULATED GLOBULIN (test co de = 2240) 2.7 G/DL CALCULATED A/G RATIO (test code = 2234) 1.6 RATIO BILIRUBIN, TOTAL (test code = 2207) 0.5 MG/DL ALKALINE PHOSPHATASE (test code = 2204) 44 U/L SGOT (AST) (test code = 2218) 22 U/L SGPT (ALT) (test code = 2219) 31 U/L Bill Smith McLIPID [id number] 00:00:00* Test Item Value Reference Range Interpretation Comme nts CHOLESTEROL (test code = 2210) 252 MG/DL TRIGLYCERIDES (test code = 2232) 170 MG/DL HDL CHOLESTEROL (test code = 2220) 45 MG/DL CALCULATED LDL CHOL (test co de = 2237) 173 MG/DL RISK RATIO LDL/HDL (test cod e = 2238) 3.84 RATIO Bill Smith McCBC W/AUTO [id number] 00:00:00* Test Item Value Reference Range Interpretation Comme nts WBC (test code = 1001) 5.8 K/UL RBC (test code = 1002) 4.61 M/UL HEMOGLOBIN (test code = 1003) 14.0 G/DL HEMATOCRIT (test code = 1004) 41.3 % MCV (test code = 1005) 89.6 fL MCH (test code = 1006) 30.4 PG MCHC (test code = 1007) 33.9 G/DL RDW (test code = 1038) 13.7 % NEUTROPHILS (test code = 1008) 55 % LYMPHOCYTES (test code = 1010) 30 % MONOCYTES (test code = 1011) 11 % EOSINOPHILS (test code = 1012) 4 % BASOPHILS (test code = 1013) 1 % PLATELET COUNT (test code = 1015) 224 K/UL Bill BentleyHEMOGLOBIN [id number] 00:00:00* Test Item Value Reference Range Interpretation Comme nts HEMOGLOBIN A1c (test code = 78843) 5.6 % Bill F McTHYROID II PROFILE (T3U, T4, T7, TSH)2015-03-06 00:00:00* Test Item Value Reference Range Interpretation Comme nts T3 UPTAKE (test code = 2817) 26.4 % T4 (THYROXINE) (test code = 2819) 3.9 UG/DL CALCULATED T7 (FTI) (test co de = 2820) 1.03 TSH (test code = 2821) 53.1 UIU/ML Bill Bentley Notes Date/Time Note Provider Source Bill Rao [facility]2024-11-02 00:00:00 Bill Bentley [facility]2024-10-04 00:00:00 Bill Rao [facility]2024-05-10 00:00:00 Bill [facility]
[2024-08-27 13:49] LABS: Absolute Lymphocytes (CBC) 1.5 K/uL (0.7-4.9); Absolute Monocytes 0.4 K/uL (0.1-1.3); Absolute Neutrophil 3.7 K/uL (1.8-8.0); Basophils % 0.7 % (0-1.3); Eosinophils % 0.8 % (0-4.4); Hematocrit 38.4 % (39.6-49.0); Hemoglobin 13.7 g/dL (13.6-17.9); Lymphocytes % 26.1 % (15.3-44.8); MCH 31.5 pg (27.0-35.0); MCHC 35.8 g/dL (32.0-36.0); MPV 7.4 fL (7.6-11.3); Monocytes % 6.6 % (3.3-12.3); Neutrophils % 65.8 % (41.7-73.7); Nucleated Red Blood Cells % 0.1 % (0-0); Platelets 215 thou/uL (152-406); RBC Red Blood Cell Count 4.36 M/uL (4.33-5.43); Red Cell Distribution Width 13.4 % (12.1-15.2)
[2024-08-27 14:00] LABS: Specific Gravity > 1.030 (1.005-1.030); Sqamous Epithelial None Seen /HPF (None Seen); Urine Bacteria None Seen /HPF (<20); Urine Bilirubin NEGATIVE (Negative); Urine Blood Negative (Negative); Urine Clarity Clear (Clear); Urine Color Yellow (Yellow); Urine Culture Reflex Order NOT NEEDED; Urine Glucose NEGATIVE (Negative); Urine Ketones NEGATIVE (Negative); Urine Microscopic Reflex YN ORDER UMIC; Urine Mucus Slight /HPF (None Seen); Urine Nitrite NEGATIVE (Negative); Urine Protein TRACE (Negative); Urine RBC <5 /HPF (None Seen); Urine Urobilinogen 1+ (Normal); Urine WBC <5 /HPF (<5); Urine pH 6.5 (5.0-7.0)
[2024-08-27 14:04] LABS: Albumin/Globulin Ratio 1.4 (1.1-1.8); Anion Gap 5.9 mEq/L (5.0-15.0); Bilirubin Total 0.7 mg/dL (0.2-1.0); Globulin 2.9 g/dL (2.3-3.5); Potassium 3.9 mEq/L (3.5-5.1); Protein, Total 6.9 g/dL (6.4-8.2)
[2024-08-27] MEDS ORDERED: MORPHINE 4 MG/ML SYR ONE (14:40)
[2024-08-27] MEDS ORDERED: ONDANSETRON 4 MG/2 ML VIAL ONE (14:40)
[2024-08-27] MEDS ORDERED: NA CHLORIDE 0.9% 1,000 ML ONE (14:40)
[2024-08-27] MEDS ORDERED: KETOROLAC 30 MG/ML INJ ONE (14:40)
--- NOTE | 2024-08-27 15:00 | RAD REPORT ---
EXAMINATION: CT ABDOMEN AND PELVIS WITH CONTRAST CLINICAL INDICATION: Abdominal pain TECHNIQUE: CT abdomen and pelvis was performed, after the administration of 100 cc Isovue-300.. Sagit vy and coronal reconstructions were obtained. One or more of the following dose reduction techniques were used: Automated exposure control, adjustment of the mA and kV according to patient si ze, and iterative reconstruction. Unless otherwise specified, incidental findings do not require dedicated imaging follow-up. [id number]. Oral contrast was not given which limits evaluation of bowel and appendix. COMPARISON: .2020 FINDINGS: Liver, spleen, pancreas, and adrenals appear unremarkable. Tiny right renal cyst. Cholecystectomy Tiny bilateral renal calculi. No hydronephrosis. Tiny fatty lesion left kidney is benign. No evidence of diverticulitis. Appendectomy. Small inguinal hernias. Mild prostatic enlargement :Mild bladder wall thickening. IMPRESSION: Tiny bilateral nonobstructing renal calculi Mild bladder wall thickening may be secondary to incomplete distention or inflammation.
--- NOTE | 2024-08-27 15:29 | ER ---
Nurse's Notes [facility] Name: Cem Serra Age: 48 yrs Sex: Male : 1975 Arrival Date: 08/27/2024 Time: 13:08 Bed 11 Private MD: Diagnosis: Upper abdominal pain, unspecified Presentation: 08/27 13:24 Chief complaint: Patient states: pain under right breast/ribs since yesterday , felt iw like a muscle strain. Coronavirus screen: At this time, the client does not indicate any symptoms associated with coronavirus-19. Ebola Screen: No symptoms or risks identified at this time. Initial Sepsis Screen: Does the patient meet any 2 criteria? No. Patient's initial sepsis screen is negative. Does the patient have a suspected source of infection? No. Patient's initial sepsis screen is negative. Risk Assessment: Do you want to hurt yourself or someone else?. Onset of symptoms was August 26, 2024. 13:24 Acuity: MARIA VICTORIA 3 iw 13:24 Method Of Arrival: Ambulatory iw Historical: - Allergies: 13:25 NKA; iw - PMHx: 13:25 Hypothyroidism; Hypertension; iw 13:26 Kidney stone; iw - PSHx: 13:26 Cholecystectomy; Appendectomy; iw - Immunization history:: Adult Immunizations Adult Immunizations not up to date. - Infectious Disease History:: Denies. - Social history:: Smoking status: Patient denies any tobacco usage or history of. Screenin:29 [facility] ED Fall Risk Assessment (Adult) History of falling in the last 3 months, iw including since admission No falls in past 3 months (0 pts) Confusion or Disorientation No (0 pts) Intoxicated or Sedated No (0 pts) Impaired Gait No (0 pts) Mobility Assist Device Used No (0 pt) Altered Elimination No (0 pt) Score/Fall Risk Level 0 - 2 = Low Risk Oriented to surroundings, Maintained a safe environment. Abuse screen: Denies injuries from another. Nutritional screening: No deficits noted. Tuberculosis screening: No symptoms or risk factors identified. Assessment: 13:28 General: Appears in no apparent distress. Behavior is. Pain: Complains of pain in right iw breast and right upper quadrant Pain currently is 8 out of 10 on a pain scale. Quality of pain is described as sharp, Pain began 1 day ago. Is intermittent. Neuro: Level of Consciousness is awake, alert, obeys commands, Oriented to person, place, time, situation, Moves all extremities. Full function. Respiratory: Respiratory effort is even, unlabored, Respiratory pattern is regular, symmetrical. Derm: Skin is intact, is healthy with good turgor. 14:30 Reassessment: Patient and/or family updated on plan of care and expected duration. Pain kc6 level reassessed. 15:03 General: Appears in no apparent distress. uncomfortable, well groomed, well developed, kc6 Behavior is calm, cooperative, appropriate for age. Pain: Complains of pain in right upper quadrant. Neuro: Level of Consciousness is awake, alert, obeys commands, Oriented to person, place, time, situation, Appropriate for age. GI: Reports upper abdominal pain. Vital Signs: 13:24 BP 144 / 100; Pulse 68; Resp 16; Temp 98.5; Pulse Ox 98% ; Weight 113.4 kg; Height 5 iw ft. 10 in. ; Pain 8/10; 16:20 BP 138 / 92; Pulse 80; Resp 18 S; Pulse Ox 97% on R/A; kc6 13:24 Body Mass Index 35.87 (113.40 kg, 177.8 cm) iw 13:24 Pain Scale: Adult iw ED Course: 13:13 Patient arrived in ED. im 13:16 Mitchell Joseph FNP-C is PHCP. dr5 13:16 Oracio Huggins DO is Attending Physician. dr5 13:25 Triage completed. iw 13:28 Arm band placed on. iw 13:37 Initial lab(s) drawn, by me, sent to lab. Inserted saline lock: 22 gauge in right iw antecubital area, using aseptic technique. Blood collected. Flushed with 10 mL NS. 14:30 Patient placed in an exam room, on a stretcher. kc6 14:38 Macy Landis, RN is Primary Nurse. kc6 14:39 CT Abd/Pelvis - IV Contrast Only In Process Unspecified. EDMS 15:03 Patient has correct armband on for positive identification. Bed in low position. Call kc6 light in reach. Side rails up X2. Pulse ox on. NIBP on. Door closed. Noise minimized. Lights dimmed. Pillow given. Verbal reassurance given. 16:20 No provider procedures requiring assistance completed. IV discontinued, intact, kc6 bleeding controlled, No redness/swelling at site. Pressure dressing applied. Administered Medications: 15:02 Drug: NS 0.9% IV 1000 ml IV at 1 bolus Per protocol; to be given as a bolus over 60 kc6 minutes Route: IV; Rate: 1 bolus; Site: right antecubital; 16:19 Follow up: Response: No adverse reaction; IV Status: Completed infusion; IV Intake: kc6 1000ml 15:03 Drug: TORadol - Ketorolac IVP 15 mg IVP once Route: IVP; Site: right antecubital; kc6 15:46 Follow up: Response: No adverse reaction; Pain is decreased kc6 15:03 Drug: Ondansetron IVP 4 mg IVP once; over 2 minutes Route: IVP; Site: right antecubital;kc6 15:46 Follow up: Response: No adverse reaction kc6 15:03 Drug: morphine IVP or IV 4 mg IVP once over 4 mins Route: IVP; Infused Over: 4 mins; kc6 Site: right antecubital; 15:46 Follow up: Response: No adverse reaction; Pain is decreased; RASS: Alert and Calm (0) kc6 Medication: 13:48 VIS not applicable for this client. iw Intake: 16:19 IV: 1000ml; Total: 1000ml. kc6 Outcome: 15:29 Discharge ordered by MD. dr5 16:20 Discharged to home ambulatory, with family, kc6 16:20 Condition: good 16:20 Discharge instructions given to patient, family, Instructed on discharge instructions, follow up and referral plans. medication usage, Demonstrated understanding of instructions, follow-up care, medications, Prescriptions given X 3, 16:20 Patient left the ED. kc6 Signatures: Dispatcher [employer] EDMS Cindi Vela RN RN iw Joe Tillman RN RN ll1 Macy Landis RN RN [id number] Mary Ramon Dustin, HOSPITAL CNA-C HOSPITAL CNA-Cdr5 Corrections: (The following items were deleted from the chart) 13:27 13:24 BP 144 / 100; Pulse 68bpm; Resp 16bpm; Pulse Ox 98%; Temp 98.5F; iw iw 14:30 13:47 Patient placed in an exam room, on a stretcher, llNemo [email or web address]
--- NOTE | 2024-08-27 15:29 | EDPHYS ---
Physician Documentation [facility] Name: Cem Serra Age: 48 yrs Sex: Male : 1975 Arrival Date: 08/27/2024 Time: 13:08 Bed 11 Private MD: ED Physician Oracio Huggins HPI: 08/27 13:28 This 48 yrs old Male presents to ER via Ambulatory with complaints of Flank dr5 Pain. 13:28 Onset: The symptoms/episode began/occurred yesterday. Patient is a 48-year-old male dr5 with history of hypertension, hypothyroidism coming in with right upper quadrant abdominal pain that started yesterday. Patient states that he has been helping his son get around and may have strained a muscle. Patient reports no pain while sitting at rest and pain when he stands up, bends over, or twists in the wrong way. Patient reports he has had a cholecystectomy as well as appendectomy and had a procedure on his stomach to help him lose weight. Patient denies fever, nausea, vomiting, and radiating pain.. Historical: - Allergies: 13:25 NKA; iw - PMHx: 13:25 Hypothyroidism; Hypertension; iw 13:26 Kidney stone; iw - PSHx: 13:26 Cholecystectomy; Appendectomy; iw - Immunization history:: Adult Immunizations Adult Immunizations not up to date. - Infectious Disease History:: Denies. - Social history:: Smoking status: Patient denies any tobacco usage or history of. ROS: 13:29 Constitutional: as per hpi dr5 Exam: 13:29 Constitutional: This is a well developed, well nourished patient who is awake, alert, dr5 and in no acute distress. Head/Face: Normocephalic, atraumatic. ENT: Nares patent. No nasal discharge, no septal abnormalities noted. Tympanic membranes are normal and external auditory canals are clear. Oropharynx with no redness, swelling, or masses, exudates, or evidence of obstruction, uvula midline. Mucous membranes moist. Neck: Trachea midline, no thyromegaly or masses palpated, and no cervical lymphadenopathy. Supple, full range of motion without nuchal rigidity, or vertebral point tenderness. No Meningismus. Chest/axilla: Normal chest wall appearance and motion. Nontender with no deformity. No lesions are appreciated. Respiratory: Lungs have equal breath sounds bilaterally, clear to auscultation. No rales, rhonchi or wheezes noted. No increased work of breathing, no retractions or nasal flaring. Abdomen/GI: No tenderness to palpation over epigastric / RUQ / or any other areas on the abdomen. Skin: Warm, dry with normal turgor. Normal color with no rashes, no lesions, and no evidence of cellulitis. MS/ Extremity: Pulses equal, no cyanosis. Neurovascular intact. Full, normal range of motion. Neuro: Awake and alert, GCS 15, oriented to person, place, time, and situation. Cranial nerves II-XII grossly intact. Motor strength 5/5 in all extremities. Sensory grossly intact. Cerebellar exam normal. Normal gait. Vital Signs: 13:24 BP 144 / 100; Pulse 68; Resp 16; Temp 98.5; Pulse Ox 98% ; Weight 113.4 kg; Height 5 iw ft. 10 in. ; Pain 8/10; 16:20 BP 138 / 92; Pulse 80; Resp 18 S; Pulse Ox 97% on R/A; kc6 13:24 Body Mass Index 35.87 (113.40 kg, 177.8 cm) iw 13:24 Pain Scale: Adult iw MDM: 13:23 Medical Screening Exam initiated dr5 15:37 Differential diagnosis: nephrolithiasis, UTI, diverticulitis. Data reviewed: vital dr5 signs, nurses notes. I considered the following discharge prescriptions or medication management in the emergency department Medications were administered in the Emergency Department. See MAR. Care significantly affected by the following chronic conditions: Hypertension, Hypothyroidism, Kidney Stone. Care significantly affected by the following Social Determinants of Health: Poor access to healthcare and/or lack of insurance, Poor access to transportation, Problems related to employment. Counseling: I had a detailed discussion with the patient and/or guardian regarding the historical points, exam findings, and any diagnostic results supporting the discharge/admit diagnosis, the presence of at least one elevated blood pressure reading (>120/80) during this emergency department visit, lab results, the need for outpatient follow up, for definitive care, a family practitioner, to return to the emergency department if symptoms worsen or persist or if there are any questions or concerns that arise at home. Medication response: Toradol relieved patient's pain. The symptoms have resolved. ED course: Patient's lab work and abdomen CT scan reviewed with patient. Patient reports he is feeling much better. Patient states that he thinks it might be a muscle strain. Will trial steroids and muscle relaxers to help with pain at home. Recommend patient follow with primary care doctor for further management and further workup.. 08/27 13:28 Order name: CBC with Diff; Complete Time: 13:53 [facility] 08/27 13:28 Order name: CMP; Complete Time: 14:18 [facility] 08/27 13:28 Order name: Lipase; Complete Time: 14:18 [facility] 08/27 13:28 Order name: Urinalysis w/ reflexes; Complete Time: 14:00 [facility] 08/27 14:18 Order name: CT Abd/Pelvis - IV Contrast Only; Complete Time: 15:01 [facility] 08/27 13:28 Order name: IV Saline Lock; Complete Time: 13:37 [facility] 08/27 13:28 Order name: Labs collected and sent; Complete Time: 13:37 dr5 Administered Medications: 15:02 Drug: NS 0.9% IV 1000 ml IV at 1 bolus Per protocol; to be given as a bolus over 60 kc6 minutes Route: IV; Rate: 1 bolus; Site: right antecubital; 16:19 Follow up: Response: No adverse reaction; IV Status: Completed infusion; IV Intake: kc6 1000ml 15:03 Drug: TORadol - Ketorolac IVP 15 mg IVP once Route: IVP; Site: right antecubital; kc6 15:46 Follow up: Response: No adverse reaction; Pain is decreased kc6 15:03 Drug: Ondansetron IVP 4 mg IVP once; over 2 minutes Route: IVP; Site: right antecubital;kc6 15:46 Follow up: Response: No adverse reaction kc6 15:03 Drug: morphine IVP or IV 4 mg IVP once over 4 mins Route: IVP; Infused Over: 4 mins; kc6 Site: right antecubital; 15:46 Follow up: Response: No adverse reaction; Pain is decreased; RASS: Alert and Calm (0) kc6 Disposition: 15:05 I was immediately available on-site in the Emergency Department for consultation in the ct3 care of the patient. Disposition Summary: 08/27/24 15:29 Discharge Ordered Notes: Location: Home dr5 Condition: Stable dr5 Diagnosis - Upper abdominal pain, unspecified dr5 Followup: dr5 - With: Emergency Department - When: As needed - Reason: Worsening of condition Followup: dr5 - With: Private Physician - When: 1 - 2 days - Reason: Recheck today's complaints, Continuance of care, Re-evaluation by your physician Discharge Instructions: - Discharge Summary Sheet dr5 - Abdominal Pain, Adult dr5 Forms: - Work release form kc6 - Medication Reconciliation Form dr5 - Patient Portal Instructions dr5 - Leadership Thank You Letter dr5 Prescriptions: - Ibuprofen 800 mg Oral Tablet - take 1 tablet ORAL route every 12 hours As needed take with food; 20 tablet; dr5 Refills: 0, Product Selection Permitted - Cyclobenzaprine 10 mg Oral Tablet - take 1 tablet ORAL route every 8 hours As needed; 30 tablet; Refills: 0, dr5 Product Selection Permitted - Medrol (Jose Carlos) 4 mg Oral Tablets, Dose Pack - take 1 tablet ORAL route as directed - follow package instructions; 1 packet; dr5 Refills: 0, Product Selection Permitted Signatures: Dispatcher [employer] Cindi Mayo RN RN iw Oracio Huggins DO DO ms3 Macy Landis RN RN kc6 Mitchell Joseph, CARE SERVICES MANAGER-C CARE SERVICES MANAGER-Cdr5
[2024-08-27 16:46] VITALS: TEMP 98.5
[2024-08-27 16:48] VITALS: BP 138/92; O2SAT 97
== END 2024-08-27 16:20 | disposition home or self-care (01) ==
LOC: ER 13:08
DX: R10.11 Right upper quadrant pain (principal); Z87.442 Personal history of urinary calculi
CPT/HCPCS: 96361; 85025; 81001; 36415; 83690; 80053; 74177; 96375; 96374; 99284; Q9967; J2405; J7030

== ENCOUNTER 2024-09-26 19:27 | Emergency (ER) | payer OTHER ==
--- OUTSIDE RECORDS SUMMARY | 2024-09-26 19:32 | XMS REPORT | Continuity of Care Document ---
Author Name Unknown Address [address] [address] [address] [place] [address] [facility] [place] Address [address] [address] [address] [place] [address] Care Team Providers Care Wash And Greaser Name Role Phone Piedad Arreguin Primary Care Physician [phone] Megan Mathews Attending Clinician Unavailable Problems Condition Name Condition Details Condition Category Status Onset Date Resolution Date Last Treatment Date Treating Clinician Comments Source Obstructiv e sleep apnea Obstructiv e sleep apnea Problem Active [facility] Hypothyroi dism Hypothyroi dism Problem Active [facility] Pure hyperchole sterolemia Pure hyperchole sterolemia Problem Active [facility] Foot pain, right Foot pain, right Problem Active [facility] Hypertensi on Hypertensi on Problem Active [facility] Gastro-eso phageal reflux disease without esophagiti s Gastro-eso phageal reflux disease without esophagiti s Problem Active [facility] Status post gastrectom y Status post gastrectom y Problem Active [facility] Encounter for removal of sutures Encounter for removal of sutures Problem Active [facility] Body mass index (BMI) of 45.0-49.9 in adult Body mass index (BMI) of 45.0-49.9 in adult Problem Active [facility] Environmen vy allergies Environmen vy allergies Problem Active [facility] Acute nasopharyn gitis [common cold] Acute nasopharyn gitis [common cold] Problem Active [facility] Dizziness Dizziness Problem Active [facility] Seasonal allergies Seasonal allergies Problem Active [facility] Gastroente ritis Gastroente ritis Problem Active [facility] Costochond ritis Costochond ritis Diagnosis Active [facility] Medications Ordered Medication Name Filled Medication Name Start Date Stop Date Current Medication? Ordering Clinician Indication Dosage Frequency Signature (SIG) Comments Components Source levothyroxi ne 175 mcg tablet 1-02 00:00: 00 Yes 1mcg Bill Bentley hydroxyzine HCl 25 mg tablet 2023-05 0-04 00:00: 00 Yes 1mg Bill Bentley levothyroxi ne 175 mcg tablet 2023-05 0-04 00:00: 00 Yes 1mcg Bill Bentley sertraline 50 mg tablet -05 00:00: 00 Yes 1mg Bill Bentley levothyroxi [...] Bill Bentley TAKE 1 TABLET EVERY MORNING. 3-13 00:00: 00 10-09 00:00 :00 No 25 Bill Bentley TAKE 1 TABLET DAILY. 3-10 00:00: 00 10-09 00:00 :00 No 100 Bill Bentley TAKE 1 TABLET DAILY. 3-10 00:00: 00 10-09 00:00 :00 No 5 Bill F Mc TAKE 1 CAPSULE BY MOUTH EVERY MORNING [...] Bill Bentley levothyroxi ne 100 mcg tablet 8 00:00: 00 Yes 1mcg Bill Bentley bupropion HCl SR 150 mg tablet,12 hr sustained-r elease 12-25 00:00: 00 Yes 1mg Bill Bentley hydroxyzine HCl 50 mg tablet 12-25 00:00: 00 Yes 1mg Bill Bentley levothyroxi ne 100 mcg capsule 12-25 00:00: 00 Yes 1mcg Bill Bentley Methocarbam ol Methocarbam ol 2-03 00:00: 00 07-10 00:00 :00 No Rylee Barron 1 tablet [facility] PredniSONE PredniSONE 2-03 00:00: 00 07-05 00:00 :00 No Rylee Barron 1 tablet [facility] Meclizine HCl Meclizine HCl 2018-05 1-05 00:00: 00 Yes Rylee Barron 1 tablet as needed for vertigo/di zziness [facility] Fluticasone Propionate Fluticasone Propionate 2017-05 00:00: 00 Yes Rylee Barron 1 spray in each nostril [facility] Oseltamivir Phosphate Oseltamivir Phosphate 2017-05 00:00: 00 Yes Rylee Barron 1 capsule [facility] Flonase Flonase 02-19 00:00: 00 Yes Rylee Barron 2 sprays each nostril prn [facility] lisinopril 20 mg-hydrochl orothiazide 12.5 mg tablet [...] Barron 1 tablet on an empty stomach [facility] Synthroid Synthroid Yes Rylee Barron 1 tablet on an empty stomach in the morning [facility] Lisinopril Lisinopril Yes Rylee Barron take one tablet by mouth daily [facility] Zofran Zofran Yes Rylee Barron 1 tablet [facility] Vital Signs Vital Name Observation Time Observation [...] 2024-03-29 10:59:00 124 mm[Hg] Step hen F Mc BP Diastolic 2024-03-29 10:59:00 82 mm[Hg] Lloyd [...] Rate 2022-11-04 10:25:00 17.00 /min Bill F Mc BP Systolic 2022-07-08 10:17:00 151 mm[Hg] Step [...] Measured 2022-06-10 09:22:00 68.70 inches Bill F Cm Body Temperature 2022-06-10 09:22:00 98.30 degrees Bill [...] Measured 2020-12-25 13:16:00 231.80 pounds Bill F Cm Height Measured 2020-12-25 13:16:00 68.70 inches Bill F Mc Body Temperature 2020-12-25 13:16:00 98.00 degrees Bill F Mc Heart Rate 2020-12-25 13:16:00 79.00 /min Mary en Sarah Bentley Respiratory Rate 2020-12-25 13:16:00 17.00 /min Bill Bentley BP Systolic 2016-03-31 16:37:00 132 mm[Hg] Dutch Bentley BP Diastolic 2016-03-31 16:37:00 90 mm[Hg] Lloyd Bentley Weight Measured 2016-03-31 16:37:00 341.40 pounds Bill Bentley Height Measured 2016-03-31 16:37:00 70.00 inches Bill Bentley Body Temperature 2016-03-31 16:37:00 98.50 degrees Bill Bentley Heart Rate 2016-03-31 16:37:00 69.00 /min Mary Bentley Respiratory Rate 2016-03-31 16:37:00 18.00 /min Bill Bentley Encounters Start Date/Time End Date/Time Encounter Type Admission Type Attending [facility] Care Department Encounter ID Source 2021-06-22 11:04:[address] [facility] [id number] [facility] 2024-06-13 17:06:28 2024-06-13 17:06:28 Outpatient [facility] [id number] Bill Bentley 2024-06-13 00:00:00 2024-06-13 00:00:00 Outpatient Visit [facility] [id number] Bill Bentley 2024-03-29 10:46:04 2024-03-29 10:46:04 Outpatient [facility] [id number] Bill Bentley 2024-03-29 00:00:00 2024-03-29 00:00:00 Outpatient Visit [facility] [id number] Bill Bentley 2024-02-29 14:56:09 2024-02-29 14:56:09 Outpatient [facility] [id number] Bill Bentley 2024-02-29 00:00:00 2024-02-29 00:00:00 Outpatient Visit [facility] [id number] Bill Bentley 2023-10-06 10:18:56 2023-10-06 10:18:56 Outpatient [facility] [id number] Bill Bentley 2023-10-05 15:46:04 2023-10-05 15:46:04 Outpatient [facility] [id number] Bill Bentley 2023-10-05 00:00:00 2023-10-05 00:00:00 Outpatient Visit [facility] [id number] Bill Bentley 2023-07-20 13:03:24 2023-07-20 13:03:24 Outpatient [facility] [id number] Bill Bentley 2023-07-13 16:26:32 2023-07-13 16:26:32 Outpatient [facility] [id number] Bill Bentley 2023-06-16 09:09:21 2023-06-16 09:09:21 Outpatient [facility] [id number] Bill Bentley 2022-11-04 10:20:49 2022-11-04 10:20:49 Outpatient [facility] [id number] Bill Bentley 2022-08-05 09:29:28 2022-08-05 09:29:28 Outpatient [facility] [id number] Bill Bentley 2022-07-08 10:06:19 2022-07-08 10:06:19 Outpatient [facility] [id number] Bill Bentley 2022-07-01 09:16:55 2022-07-01 09:16:55 Outpatient [facility] [id number] Bill Bentley 2022-06-24 08:53:09 2022-06-24 08:53:09 Outpatient [facility] [id number] Bill Bentley 2022-06-10 08:54:13 2022-06-10 08:54:13 Outpatient [facility] [id number] Bill Bentley 2019-06-30 09:20:00 2019-06-30 09:20:00 [facility] [id number] [facility] 2019-04-01 13:00:00 2019-04-01 13:00:00 Outpatient [facility] [id number] [facility] 2019-01-24 10:30:00 2019-01-24 10:30:00 [facility] Medicine [id number] [facility] 2018-06-11 14:00:00 2018-06-11 14:00:00 [facility] [id number] [facility] 2018-02-19 11:00:00 2018-02-19 11:00:00 [facility] [id number] [facility] 2018-01-07 13:00:00 2018-01-07 13:00:00 [facility] Medicine [id number] [facility] 2017-12-10 10:00:00 2017-12-10 10:00:00 [facility] [id number] [facility] 2017-12-03 13:30:00 2017-12-03 13:30:00 [facility] [id number] [facility] 2017-09-07 10:15:00 2017-09-07 10:15:00 [facility] Medicine [id number] [facility] Results Test Description Test Time Test Comments Results Result Co mments Source CT/NG, NAAT, [id number] 00:00:00* Test Item Value Reference Range Interpretation Comme nts CHLAMYDIA, NAAT, URINE (test code = 99871) NEGATIVE GONORRHEA, NAAT, URINE (test code = 32776) NEGATIVE Bill F AustinRPR REFLEX TO T. PALLIDUM - [id number] 23:21:07* Test Item Value Reference Range Interpretation Comme nts RPR (test code = 98948) NON-REACTIVE NON-REACTIVE RPR TITER (test code = 3500) NOT INDIC. TITER NOT INDIC. HIV 1/2 4TH GEN, RFLX [id number] 00:52:09* Test Item Value Reference Range Interpretation Comme nts HIV 1/2 4TH GEN, RFLX CONF ( test code = 3514) NON-REACTIVE NON-REACTIVE HEPATITIS PANEL, [id number] 00:52:09* Test Item Value Reference Range Interpretation Comme nts HEPATITIS A IgM (test code = 09953) NON-REACTIVE NON-REACTIVE HEPATITIS B CORE IgM (test code = 4644) NON-REACTIVE NON-REACTIVE HEPATITIS B SURF AG (test code = 2739) NON-REACTIVE NON-REACTIVE HEPATITIS C ANTIBODY (test code = 4675) NON-REACTIVE NON-REACTIVE INTERPRETATION HEPATITIS A: (test code = 2552) (NOTE) Hepatitis A sero logy shows no evidence of acute hepatitis A. INTERPRETATION HEPATITIS B: (test code = 31542) (NOTE) Hepatitis B sero logy shows no evidence of acute hepatitis B andno indication of exposure to hepatitis B virus in the previous benjamin eight months. INTERPRETATION HEPATITIS C: (test code = 11307) (NOTE) Hepatitis C sero logy shows no evidence of exposure to hepatitisC virus at this time. It can take up to 12 months after exposure tothe hepatitis C virus for antibodies to become detectable in the blood in certain patients. UNLESS OTHERWISE INDICATED, ALL TESTING PERFORMED AT [facility] [address] [place] [address] GEOGRAPHY HEAD: ROSY FRYE M.D. CLIA NUMBER [id number] [facility] [place]. [id number] TSH, THIRD [id number] 00:25:39* Test Item Value Reference Range Interpretation Comme nts TSH, THIRD GENERATION (test code = 2821) 10.800 UIU/ML 0.400-4.100 H [id number] 00:00:00* Test Item Value Reference Range Interpretation Comme nts TSH, THIRD GENERATION (test code = 2821) 10.800 UIU/ML Bill BentleyHIV 1/2 4TH GEN, RFLX [id number] 00:00:00* Test Item Value Reference Range Interpretation Comme nts HIV 1/2 4TH GEN, RFLX CONF ( test code = 3514) NON-REACTIVE Bill F AustinRPR REFLEX TO T. PALLIDUM - [id number] 00:00:00* Test Item Value Reference Range Interpretation Comme nts RPR (test code = 37014) NON-REACTIVE RPR TITER (test code = 3500) NOT INDIC. TITER Bill Aguirre HEPATITIS [id number] 00:00:00* Test Item Value Reference Range Interpretation Comme nts HEPATITIS A IgM (test code = 34835) NON-REACTIVE HEPATITIS B CORE IgM (test c ode = 4644) NON-REACTIVE HEPATITIS B SURF AG (test co de = 2739) NON-REACTIVE HEPATITIS C ANTIBODY (test c ode = 4675) NON-REACTIVE INTERPRETATION HEPATITIS A: (test code = 2552) (NOTE) INTERPRETATION HEPATITIS B: (test code = 01927) (NOTE) INTERPRETATION HEPATITIS C: (test code = 38274) (NOTE) Bill Loomis, THIRD [id number] 23:20:55* Test Item Value Reference Range Interpretation Comme nts TSH, THIRD GENERATION (test code = 2821) 9.950 UIU/ML 0.400-4.100 H UNLESS OTHERWISE INDICATED, ALL TESTING PERFORMED AT [facility] [address] [place] [address] GEOGRAPHY HEAD: ROSY FRYE M.D. CLIA NUMBER [id number] [facility] [place]. [id number] TSH, THIRD [id number] 00:00:00* Test Item Value Reference Range Interpretation Comme nts TSH, THIRD GENERATION (test code = 2821) 9.950 UIU/ML Bill Chu, THIRD [id number] 00:00:00* Test Item Value Reference Range Interpretation Comme nts TSH, THIRD GENERATION (test code = 2821) 9.950 UIU/ML Bill [id number] 00:00:00* Test Item Value Reference Range Interpretation Comme nts TSH, THIRD GENERATION (test code = 2821) 82.900 UIU/ML Bill [id number] 00:00:00* Test Item Value Reference Range Interpretation Comme nts TSH, THIRD GENERATION (test code = 2821) 82.900 UIU/ML Blil [id number] 00:00:00* Test Item Value Reference Range Interpretation Comme nts TSH, THIRD GENERATION (test code = 2821) 82.900 UIU/ML Bill Loomis THIRD [id number] 05:57:33* Test Item Value Reference Range Interpretation Comme nts TSH, THIRD GENERATION (test code = 2821) 11.400 UIU/ML 0.400-4.100 H UNLESS OTHERWISE INDICATED, ALL TESTING PERFORMED AT [facility] [address] [place] [address] GEOGRAPHY HEAD: ROSY FRYE M.D. CLIA NUMBER [id number] [facility] [place]. [id number] TSH, THIRD [id number] 00:00:00* Test Item Value Reference Range Interpretation Comme nts TSH, THIRD GENERATION (test code = 2821) 11.400 UIU/ML Bill Loomis THIRD [id number] 00:00:00* Test Item Value Reference Range Interpretation Comme nts TSH, THIRD GENERATION (test code = 2821) 11.400 UIU/ML Bill Loomis THIRD [id number] 00:00:00* Test Item Value Reference Range Interpretation Comme nts TSH, THIRD GENERATION (test code = 2821) 11.400 UIU/ML Bill ChuHJADIEL [id number] 00:00:00* Test Item Value Reference Range Interpretation Comme nts TSH, THIRD GENERATION (test code = 2821) 11.400 UIU/ML Bill Loomis RFLX FT4 AND [id number] 02:28:28* Test Item Value Reference Range Interpretation Comme nts TSH RFLX FT4 AND FT3 (test code = 22285) >100.000 UIU/ML 0.400-4.100 H FREE [id number] 02:28:28* Test Item Value Reference Range Interpretation Comme nts FREE T3 (test code = 4273) <1.0 PG/ML 2.2-4.2 L FREE T4 (THYROXINE)2023-06-18 02:28:28* Test Item Value Reference Range Interpretation Comme nts FREE T4 (THYROXINE) (test code = 2823) <0.11 NG/DL 0.80-1.90 L UNLESS OTHERWISE INDICATED, ALL TESTING PERFORMED AT [facility] [address] [place] [address] GEOGRAPHY HEAD: ROSY FRYE M.D. CLIA NUMBER [id number] [facility] [place]. [id number] FREE T3 [REFLEX]2023-06-18 00:00:00* Test Item Value Reference Range Interpretation Comme nts FREE T3 (test code = 4273) <1.0 PG/ML Bill F AustinFREE T4 (THYROXINE) [REFLEX]2023-06-18 00:00:00* Test Item Value Reference Range Interpretation Comme nts FREE T4 (THYROXINE) (test co de = 2823) <0.11 NG/DL Bill F MorrisTSH RFLX FT4 AND [id number] 00:00:00* Test Item Value Reference Range Interpretation Comme nts TSH RFLX FT4 AND FT3 (test code = 98020) >100.000 UIU/ML Bill F AustinFREE T3 [REFLEX]2023-06-18 00:00:00* Test Item Value Reference Range Interpretation Comme nts FREE T3 (test code = 4273) <1.0 PG/ML Bill AustinFREE T4 (THYROXINE) [REFLEX]2023-06-18 00:00:00* Test Item Value Reference Range Interpretation Comme nts FREE T4 (THYROXINE) (test co de = 2823) <0.11 NG/DL Bill F MorrisTSH RFLX FT4 AND [id number] 00:00:00* Test Item Value Reference Range Interpretation Comme nts TSH RFLX FT4 AND FT3 (test code = 16568) >100.000 UIU/ML Bill F AustinFREE T3 [REFLEX]2023-06-18 00:00:00* Test Item Value Reference Range Interpretation Comme nts FREE T3 (test code = 4273) <1.0 PG/ML Bill F AustinFREE T4 (THYROXINE) [REFLEX]2023-06-18 00:00:00* Test Item Value Reference Range Interpretation Comme nts FREE T4 (THYROXINE) (test co de = 2823) <0.11 NG/DL Bill F AustinTSH RFLX FT4 AND [id number] 00:00:00* Test Item Value Reference Range Interpretation Comme nts TSH RFLX FT4 AND FT3 (test code = 12281) >100.000 UIU/ML Bill BentleyFR T3 [REFLEX]2023-06-18 00:00:00* Test Item Value Reference Range Interpretation Comme nts FREE T3 (test code = 4273) <1.0 PG/ML [facility] T4 (THYROXINE) [REFLEX]2023-06-18 00:00:00* Test Item Value Reference Range Interpretation Comme nts FREE T4 (THYROXINE) (test co de = 2823) <0.11 NG/DL [facility] RFLX FT4 AND [id number] 00:00:00* Test Item Value Reference Range Interpretation Comme nts TSH RFLX FT4 AND FT3 (test code = 47981) >100.000 UIU/ML Bill Chu, THIRD [id number] 21:02:32* Test Item Value Reference Range Interpretation Comme nts TSH, THIRD GENERATION (test code = 2821) >100.000 UIU/ML 0.400-4.100 H UNLESS OTHERWISE INDICATED, ALL TESTING PERFORMED AT [facility] [address] [place] [address] GEOGRAPHY HEAD: ROSY FRYE M.D. CLIA NUMBER [id number] [facility] [place]. [id number] TSH, THIRD [id number] 00:00:00* Test Item Value Reference Range Interpretation Comme nts TSH, THIRD GENERATION (test code = 2821) >100.000 UIU/ML Bill Chu, THIRD [id number] 00:00:00* Test Item Value Reference Range Interpretation Comme nts TSH, THIRD GENERATION (test code = 2821) >100.000 UIU/ML Bill Chu, THIRD [id number] 00:00:00* Test Item Value Reference Range Interpretation Comme nts TSH, THIRD GENERATION (test code = 2821) >100.000 UIU/ML Bill Sarah BentleyPR[facility], THIRD [id number] 00:00:00* Test Item Value Reference Range Interpretation Comme nts TSH, THIRD GENERATION (test code = 2821) >100.000 UIU/ML Bill BentleyLIPID [id number] 04:56:26* Test Item Value Reference Range Interpretation Comme nts CHOLESTEROL (test code = 2210) 219 MG/DL <200 H TRIGLYCERIDES (test code = 2232) 63 MG/DL <150 HDL CHOLESTEROL (test code = 2220) 58 MG/DL >39 CALC LDL CHOL (test code = 2237) 145 MG/DL <100 H NOTE: CALCULATED LDL IS BASED ON GIGI-ARRAIZA METHOD WHICHINCLUDES ADJUSTABLE TRIGLYCERIDE:VLDL CHOLESTEROL RATIO.THIS FACTOR VARIES BY MEASURED TRIGLYCERIDE AND NON-HDLCHOLESTEROL CONCENTRATIONS WITH INCREASED CALCULATED LDL SEENIN HIGHER TRIGLYCERIDE OR LOWER NON-HDL SPECIMENS. FOR MOREINFORMATION, SEE CLIENT ANNOUNCEMENT AT [email or web address] RISK RATIO LDL/HDL (test code = 2238) 2.50 RATIO <3.55 [facility] has i mportant pathology staff changes effective 07/26/2022. New pathology staff will provide uninterrupted, excellent patient care and clinical consultation. See URL: [email or web address]. UNLESS OTHERWISE INDICATED, ALL TESTING PERFORMED AT [facility] [address] [place] [address] GEOGRAPHY HEAD: ROSY FRYE M.D. CLIA NUMBER [id number] [facility] [place]. [id number] TSH, THIRD [id number] 02:22:31* Test Item Value Reference Range Interpretation Comme nts TSH, THIRD GENERATION (test code = 2821) 19.500 UIU/ML 0.400-4.100 H TSH, THIRD [id number] 00:00:00* Test Item Value Reference Range Interpretation Comme nts TSH, THIRD GENERATION (test code = 2821) 19.500 UIU/ML Bill BentleyLIPID [id number] 00:00:00* Test Item Value Reference Range Interpretation Comme nts CHOLESTEROL (test code = 2210) 219 MG/DL TRIGLYCERIDES (test code = 2232) 63 MG/DL HDL CHOLESTEROL (test code = 2220) 58 MG/DL CALC LDL CHOL (test code = 2237) 145 MG/DL RISK RATIO LDL/HDL (test cod e = 2238) 2.50 RATIO Bill BentleyTSH, THIRD [id number] 00:00:00* Test Item Value Reference Range Interpretation Comme nts TSH, THIRD GENERATION (test code = 2821) 19.500 UIU/ML Bill BentleyLIPID [id number] 00:00:00* Test Item Value Reference Range Interpretation Comme nts CHOLESTEROL (test code = 2210) 219 MG/DL TRIGLYCERIDES (test code = 2232) 63 MG/DL HDL CHOLESTEROL (test code = 2220) 58 MG/DL CALC LDL CHOL (test code = 2237) 145 MG/DL RISK RATIO LDL/HDL (test cod e = 2238) 2.50 RATIO Bill ChuH, THIRD [id number] 00:00:00* Test Item Value Reference Range Interpretation Comme nts TSH, THIRD GENERATION (test code = 2821) 19.500 UIU/ML Bill BentleyLIPID [id number] 00:00:00* Test Item Value Reference Range Interpretation Comme nts CHOLESTEROL (test code = 2210) 219 MG/DL TRIGLYCERIDES (test code = 2232) 63 MG/DL HDL CHOLESTEROL (test code = 2220) 58 MG/DL CALC LDL CHOL (test code = 2237) 145 MG/DL RISK RATIO LDL/HDL (test cod e = 2238) 2.50 RATIO Bill Loomis, THIRD [id number] 00:00:00* Test Item Value Reference Range Interpretation Comme nts TSH, THIRD GENERATION (test code = 2821) 19.500 UIU/ML Bill BentleyLIPID [id number] 00:00:00* Test Item Value Reference Range Interpretation Comme nts CHOLESTEROL (test code = 2210) 219 MG/DL TRIGLYCERIDES (test code = 2232) 63 MG/DL HDL CHOLESTEROL (test code = 2220) 58 MG/DL CALC LDL CHOL (test code = 2237) 145 MG/DL RISK RATIO LDL/HDL (test cod e = 2238) 2.50 RATIO Bill BentleyTESTOSTERONE, FREE/TOTAL WITH [id number] 03:38:38* Test Item Value Reference Range Interpretation Comme nts TESTOSTERONE (test code = 2830) 781 NG/DL 300-890 SEX HORM BIND GLOBULIN (test code = 4933) 67.0 NMOL/L 16.5-55.9 H CALC FREE TESTOSTERONE (test code = 24873) 108.3 PG/ML 47.0-244.0 [facility] has important pathology staff changes effective 07/26/2022. New pathology staff will provide uninterrupted, excellent patient care and clinical consultation. See URL: [email or web address]. UNLESS OTHERWISE INDICATED, ALL TESTING PERFORMED AT [facility] [address] [place] [address] CLIA: [id number], CAP: [id number] PSA, [id number] 03:38:20* Test Item Value Reference Range Interpretation Comme nts PSA, TOTAL (test code = 2606) 0.89 NG/ML See_Comment NOTE: Methodolog y is Thalia Cruz Electrochemiluminescence Immunoassay traceable to WHO reference standard 96/760. [Automated message] The system which generated this result transmitted reference range: <=4.00. The reference range was not used to interpret this result as normal/abnormal. TSH + FREE T4 [id number] 03:38:20* Test Item Value Reference Range Interpretation Comme nts TSH, THIRD GENERATION (test code = 2821) 37.200 UIU/ML 0.400-4.100 H FREE T4 (THYROXINE) (test co de = 2823) 1.22 NG/DL 0.80-1.90 PSA, [id number] 00:00:00* Test Item Value Reference Range Interpretation Comme nts PSA, TOTAL (test code = 2606) 0.89 NG/ML Bill Sarah AustinTSH + FREE T4 [id number] 00:00:00* Test Item Value Reference Range Interpretation Comme nts TSH, THIRD GENERATION (test code = 2821) 37.200 UIU/ML FREE T4 (THYROXINE) (test co de = 2823) 1.22 NG/DL Bill F AustinTESTOSTERONE, FREE/TOTAL WITH [id number] 00:00:00* Test Item Value Reference Range Interpretation Comme nts TESTOSTERONE (test code = 2830) 781 NG/DL SEX HORM BIND GLOBULIN (test code = 4933) 67.0 NMOL/L CALC FREE TESTOSTERONE (test code = 25025) 108.3 PG/ML Bill F AustinPSA, [id number] 00:00:00* Test Item Value Reference Range Interpretation Comme nts PSA, TOTAL (test code = 2606) 0.89 NG/ML Bill F AustinTSH + FREE T4 [id number] 00:00:00* Test Item Value Reference Range Interpretation Comme nts TSH, THIRD GENERATION (test code = 2821) 37.200 UIU/ML FREE T4 (THYROXINE) (test co de = 2823) 1.22 NG/DL Bill Smith AustinTESTOSTERONE, FREE/TOTAL WITH [id number] 00:00:00* Test Item Value Reference Range Interpretation Comme nts TESTOSTERONE (test code = 2830) 781 NG/DL SEX HORM BIND GLOBULIN (test code = 4933) 67.0 NMOL/L CALC FREE TESTOSTERONE (test code = 61446) 108.3 PG/ML Bill Smith AustinPSA, [id number] 00:00:00* Test Item Value Reference Range Interpretation Comme nts PSA, TOTAL (test code = 2606) 0.89 NG/ML Bill Smith AustinTSH + FREE T4 [id number] 00:00:00* Test Item Value Reference Range Interpretation Comme nts TSH, THIRD GENERATION (test code = 2821) 37.200 UIU/ML FREE T4 (THYROXINE) (test co de = 2823) 1.22 NG/DL Bill Smith AustinTESTOSTERONE, FREE/TOTAL WITH [id number] 00:00:00* Test Item Value Reference Range Interpretation Comme nts TESTOSTERONE (test code = 2830) 781 NG/DL SEX HORM BIND GLOBULIN (test code = 4933) 67.0 NMOL/L CALC FREE TESTOSTERONE (test code = 64828) 108.3 PG/ML Bill BentleyPSA, [id number] 00:00:00* Test Item Value Reference Range Interpretation Comme nts PSA, TOTAL (test code = 2606) 0.89 NG/ML Bill Smith AustinTSH + FREE T4 [id number] 00:00:00* Test Item Value Reference Range Interpretation Comme nts TSH, THIRD GENERATION (test code = 2821) 37.200 UIU/ML FREE T4 (THYROXINE) (test co de = 2823) 1.22 NG/DL Bill Smith AustinTESTOSTERONE, FREE/TOTAL WITH [id number] 00:00:00* Test Item Value Reference Range Interpretation Comme nts TESTOSTERONE (test code = 2830) 781 NG/DL SEX HORM BIND GLOBULIN (test code = 4933) 67.0 NMOL/L CALC FREE TESTOSTERONE (test code = 75216) 108.3 PG/ML Bill ChuH REFLEX TO FREE [id number] 02:37:33* Test Item Value Reference Range Interpretation Comme nts TSH REFLEX TO FREE T4 (test code = 2834) 47.400 UIU/ML 0.400-4.100 H FREE T4 (THYROXINE)2022-07-03 02:37:33* Test Item Value Reference Range Interpretation Comme nts FREE T4 (THYROXINE) (test code = 2823) 1.11 NG/DL 0.80-1.90 [facility] has i mportant pathology staff changes effective 07/26/2022. New pathology staff will provide uninterrupted, excellent patient care and clinical consultation. See URL: [email or web address]. UNLESS OTHERWISE INDICATED, ALL TESTING PERFORMED AT [facility] [address] [place] [address] CLIA: [id number], CAP: [id number] TSH REFLEX TO FREE [id number] 00:00:00* Test Item Value Reference Range Interpretation Comme nts TSH REFLEX TO FREE T4 (test code = 2834) 47.400 UIU/ML Bill Smith AustinFREE T4 (THYROXINE) [REFLEX]2022-07-03 00:00:00* Test Item Value Reference Range Interpretation Comme nts FREE T4 (THYROXINE) (test co de = 2823) 1.11 NG/DL Bill BentleyTSH REFLEX TO FREE [id number] 00:00:00* Test Item Value Reference Range Interpretation Comme nts TSH REFLEX TO FREE T4 (test code = 2834) 47.400 UIU/ML Bill Smith AustinFREE T4 (THYROXINE) [REFLEX]2022-07-03 00:00:00* Test Item Value Reference Range Interpretation Comme nts FREE T4 (THYROXINE) (test co de = 2823) 1.11 NG/DL Bill BentleyTSH REFLEX TO FREE [id number] 00:00:00* Test Item Value Reference Range Interpretation Comme nts TSH REFLEX TO FREE T4 (test code = 2834) 47.400 UIU/ML Bill Smith AustinFREE T4 (THYROXINE) [REFLEX]2022-07-03 00:00:00* Test Item Value Reference Range Interpretation Comme nts FREE T4 (THYROXINE) (test co de = 2823) 1.11 NG/DL Bill ChuH REFLEX TO FREE [id number] 00:00:00* Test Item Value Reference Range Interpretation Comme nts TSH REFLEX TO FREE T4 (test code = 2834) 47.400 UIU/ML Bill BentleyFRROMEO T4 (THYROXINE) [REFLEX]2022-07-03 00:00:00* Test Item Value Reference Range Interpretation Comme nts FREE T4 (THYROXINE) (test co de = 2823) 1.11 NG/DL Bill ChuH, THIRD [id number] 01:59:49* Test Item Value Reference Range Interpretation Comme nts TSH, THIRD GENERATION (test code = 2821) 96.300 UIU/ML 0.400-4.100 H COMPREHENSIVE METABOLIC [id number] 00:01:28* Test Item Value Reference Range Interpretation Comme nts GLUCOSE (test code = 2217) 77 MG/DL 70-99 BUN (test code = 2207) 16 MG/DL 6-20 CREATININE (test code = 2214) 1.32 MG/DL 0.80-1.40 eGFR (2020 CKD-EPI) (test code = 35895) 68 ML/MIN/1.73 >60 CALC BUN/CREAT (test code [...] 1.9-3.7 CALC A/G RATIO (test code = 223) 2.3 RATIO 1.0-2.6 BILIRUBIN, TOTAL (test code = 2207) 0.7 MG/DL See_Comment [Automated me ssage] The system which generated this result transmitted reference range: <=1.2. The reference range was not used to interpret this result as normal/abnormal. ALKALINE PHOSPHATASE (test code = 2204) 45 U/L 40-119 AST (test code = 2218) 24 U/L 9-50 ALT (test code = 2219) 29 U/L 5-50 LIPID [id number] 00:01:28* Test Item Value Reference Range Interpretation [...] SPECIMENS. FOR MOREINFORMATION, SEE CLIENT ANNOUNCEMENT AT [email or web address] RISK RATIO LDL/HDL (test code = 2238) 3.24 RATIO <3.55 UNLESS OTHERW ISE INDICATED, [facility]MED [facility] [address] [place] [address] GEOGRAPHY HEAD: FARHAT MADRID M.D. CLIA NUMBER [id number] [facility] [place] [id number] COMPREHENSIVE METABOLIC [id number] 00:00:00* Test Item Value Reference Range Interpretation Comme nts GLUCOSE (test code = 2217) 77 MG/DL BUN (test code = 2208) 16 MG/DL CREATININE (test code = 2214) 1.32 MG/DL eGFR (2020 CKD-EPI) (test co de = 28906) 68 ML/MIN/1.73 CALC BUN/CREAT (test code = [...] code = 2219) 29 U/L Bill BentleyLIPID [id number] 00:00:00* Test Item Value Reference Range Interpretation Comme nts CHOLESTEROL (test code = 2210) 298 MG/DL TRIGLYCERIDES (test code = 2232) 70 MG/DL HDL CHOLESTEROL (test code = 2220) 66 MG/DL CALC LDL CHOL (test code = 2237) 214 MG/DL RISK RATIO LDL/HDL (test cod e = 2238) 3.24 RATIO Bill BentleyTSH, THIRD [id number] 00:00:00* Test Item Value Reference Range Interpretation Comme nts TSH, THIRD GENERATION (test code = 2821) 96.300 UIU/ML Bill BentleyCOMPREHENSIVE METABOLIC [id number] 00:00:00* Test Item Value Reference Range Interpretation Comme nts GLUCOSE (test code = 2217) 77 MG/DL BUN (test code = 2208) 16 MG/DL CREATININE (test code = 2214) 1.32 MG/DL eGFR (2020 CKD-EPI) (test co de = 80323) 68 ML/MIN/1.73 CALC BUN/CREAT (test code = [...] code = 2219) 29 U/L Bill BentleyLIPID [id number] 00:00:00* Test Item Value Reference Range Interpretation Comme nts CHOLESTEROL (test code = 2210) 298 MG/DL TRIGLYCERIDES (test code = 2232) 70 MG/DL HDL CHOLESTEROL (test code = 2220) 66 MG/DL CALC LDL CHOL (test code = 2237) 214 MG/DL RISK RATIO LDL/HDL (test cod e = 2238) 3.24 RATIO Bill BentleyTSH, THIRD [id number] 00:00:00* Test Item Value Reference Range Interpretation Comme nts TSH, THIRD GENERATION (test code = 2821) 96.300 UIU/ML Bill BentleyCOMPREHENSIVE METABOLIC [id number] 00:00:00* Test Item Value Reference Range Interpretation Comme nts GLUCOSE (test code = 2217) 77 MG/DL BUN (test code = 2208) 16 MG/DL CREATININE (test code = 2214) 1.32 MG/DL eGFR (2020 CKD-EPI) (test co de = 70040) 68 ML/MIN/1.73 CALC BUN/CREAT (test code = [...] code = 2219) 29 U/L Bill BentleyLIPID [id number] 00:00:00* Test Item Value Reference Range Interpretation Comme nts CHOLESTEROL (test code = 2210) 298 MG/DL TRIGLYCERIDES (test code = 2232) 70 MG/DL HDL CHOLESTEROL (test code = 2220) 66 MG/DL CALC LDL CHOL (test code = 2237) 214 MG/DL RISK RATIO LDL/HDL (test cod e = 2238) 3.24 RATIO JADIEL Keyes [id number] 00:00:00* Test Item Value Reference Range Interpretation Comme nts TSH, THIRD GENERATION (test code = 2821) 96.300 UIU/ML Bill BentleyCOMPREHENSIVE METABOLIC [id number] 00:00:00* Test Item Value Reference Range Interpretation Comme nts GLUCOSE (test code = 2217) 77 MG/DL BUN (test code = 2208) 16 MG/DL CREATININE (test code = 2214) 1.32 MG/DL eGFR (2020 CKD-EPI) (test co de = 86109) 68 ML/MIN/1.73 CALC BUN/CREAT (test code = [...] code = 2219) 29 U/L Bill BentleyLIPID [id number] 00:00:00* Test Item Value Reference Range Interpretation Comme nts CHOLESTEROL (test code = 2210) 298 MG/DL TRIGLYCERIDES (test code = 2232) 70 MG/DL HDL CHOLESTEROL (test code = 2220) 66 MG/DL CALC LDL CHOL (test code = 2237) 214 MG/DL RISK RATIO LDL/HDL (test cod e = 2238) 3.24 RATIO Bill Loomis, THIRD [id number] 00:00:00* Test Item Value Reference Range Interpretation Comme nts TSH, THIRD GENERATION (test code = 2821) 96.300 UIU/ML Bill BentleyCOMPREHENSIVE METABOLIC [id number] 00:00:00* Test Item Value Reference Range Interpretation Comme nts GLUCOSE (test code = 2217) 83 MG/DL BUN (test code = 2208) 20 MG/DL CREATININE (test code = 2214) 1.75 MG/DL eGFR AMER. (test cod e = 93382) 56 ML/MIN/1.73 eGFR NON- AMER. (test code = 71615) 48 ML/MIN/1.73 CALC BUN/CREAT (test code = [...] code = 2219) 92 U/L Bill BentleyLIPID [id number] 00:00:00* Test Item Value Reference Range Interpretation Comme nts CHOLESTEROL (test code = 2210) 314 MG/DL TRIGLYCERIDES (test code = 2232) 262 MG/DL HDL CHOLESTEROL (test code = 2220) 63 MG/DL CALC LDL CHOL (test code = 2237) 199 MG/DL RISK RATIO LDL/HDL (test cod e = 2238) 3.15 RATIO Bill BentleyHEMOGLOBIN [id number] 00:00:00* Test Item Value Reference Range Interpretation Comme nts HEMOGLOBIN A1c (test code = 54028) 5.4 % Bill BentleyTHYROID II PROFILE (T3U, T4, T7, TSH)2016-04-03 00:00:00* Test Item Value Reference Range Interpretation Comme nts T3 UPTAKE (test code = 2817) 25.0 % T4 (THYROXINE) (test code = 2819) 1.0 UG/DL CALCULATED T7 (FTI) (test co de = 2820) 0.25 TSH (test code = 2821) >150.0 UIU/ML Bill BentleyCOMPREHENSIVE METABOLIC [id number] 00:00:00* Test Item Value Reference Range Interpretation Comme nts GLUCOSE (test code = 2217) 83 MG/DL BUN (test code = 2208) 20 MG/DL CREATININE (test code = 2214) 1.75 MG/DL eGFR AMER. (test cod e = 12951) 56 ML/MIN/1.73 eGFR NON- AMER. (test code = 40168) 48 ML/MIN/1.73 CALC BUN/CREAT (test code = [...] code = 2219) 92 U/L Bill BentleyLIPID [id number] 00:00:00* Test Item Value Reference Range Interpretation Comme nts CHOLESTEROL (test code = 2210) 314 MG/DL TRIGLYCERIDES (test code = 2232) 262 MG/DL HDL CHOLESTEROL (test code = 2220) 63 MG/DL CALC LDL CHOL (test code = 2237) 199 MG/DL RISK RATIO LDL/HDL (test cod e = 2238) 3.15 RATIO Bill BentleyHEMOGLOBIN [id number] 00:00:00* Test Item Value Reference Range Interpretation Comme nts HEMOGLOBIN A1c (test code = 88616) 5.4 % Bill BentleyTHYROID II PROFILE (T3U, T4, T7, TSH)2016-04-03 00:00:00* Test Item Value Reference Range Interpretation Comme nts T3 UPTAKE (test code = 2817) 25.0 % T4 (THYROXINE) (test code = 2819) 1.0 UG/DL CALCULATED T7 (FTI) (test co de = 2820) 0.25 TSH (test code = 2821) >150.0 UIU/ML Bill BentleyCOMPREHENSIVE METABOLIC [id number] 00:00:00* Test Item Value Reference Range Interpretation Comme nts GLUCOSE (test code = 2217) 83 MG/DL BUN (test code = 2208) 20 MG/DL CREATININE (test code = 2214) 1.75 MG/DL eGFR AMER. (test cod e = 28484) 56 ML/MIN/1.73 eGFR NON- AMER. (test code = 69076) 48 ML/MIN/1.73 CALC BUN/CREAT (test code = [...] code = 2219) 92 U/L Bill BentleyLIPID [id number] 00:00:00* Test Item Value Reference Range Interpretation Comme nts CHOLESTEROL (test code = 2210) 314 MG/DL TRIGLYCERIDES (test code = 2232) 262 MG/DL HDL CHOLESTEROL (test code = 2220) 63 MG/DL CALC LDL CHOL (test code = 2237) 199 MG/DL RISK RATIO LDL/HDL (test cod e = 2238) 3.15 RATIO Bill BentleyHEMOGLOBIN [id number] 00:00:00* Test Item Value Reference Range Interpretation Comme nts HEMOGLOBIN A1c (test code = 93302) 5.4 % Bill BentleyTHYROID II PROFILE (T3U, T4, T7, TSH)2016-04-03 00:00:00* Test Item Value Reference Range Interpretation Comme nts T3 UPTAKE (test code = 2817) 25.0 % T4 (THYROXINE) (test code = 2819) 1.0 UG/DL CALCULATED T7 (FTI) (test co de = 2820) 0.25 TSH (test code = 2821) >150.0 UIU/ML Bill BentleyCOMPREHENSIVE METABOLIC [id number] 00:00:00* Test Item Value Reference Range Interpretation Comme nts GLUCOSE (test code = 2217) 83 MG/DL BUN (test code = 2208) 20 MG/DL CREATININE (test code = 2214) 1.75 MG/DL eGFR AMER. (test cod e = 37270) 56 ML/MIN/1.73 eGFR NON- AMER. (test code = 39436) 48 ML/MIN/1.73 CALC BUN/CREAT (test code = [...] code = 2219) 92 U/L Bill BentleyLIPID [id number] 00:00:00* Test Item Value Reference Range Interpretation Comme nts CHOLESTEROL (test code = 2210) 314 MG/DL TRIGLYCERIDES (test code = 2232) 262 MG/DL HDL CHOLESTEROL (test code = 2220) 63 MG/DL CALC LDL CHOL (test code = 2237) 199 MG/DL RISK RATIO LDL/HDL (test cod e = 2238) 3.15 RATIO Bill BentleyHEMOGLOBIN [id number] 00:00:00* Test Item Value Reference Range Interpretation Comme nts HEMOGLOBIN A1c (test code = 55991) 5.4 % Bill BentleyTHYROID II PROFILE (T3U, T4, T7, TSH)2016-04-03 00:00:00* Test Item Value Reference Range Interpretation Comme nts T3 UPTAKE (test code = 2817) 25.0 % T4 (THYROXINE) (test code = 2819) 1.0 UG/DL CALCULATED T7 (FTI) (test co de = 2820) 0.25 TSH (test code = 2821) >150.0 UIU/ML Bill Smith AustinCBC W/AUTO [id number] 00:00:00* Test Item Value Reference Range Interpretation [...] code = 1015) 176 K/UL Bill Smith AustinCBC W/AUTO [id number] 00:00:00* Test Item Value Reference Range Interpretation [...] code = 1015) 176 K/UL [facility] [id number] 00:00:00* Test Item Value Reference Range Interpretation [...] code = 1015) 176 K/UL [facility] [id number] 00:00:00* Test Item Value Reference Range Interpretation [...] = 1015) 176 K/UL Bill BentleyCOMPREHENSIVE METABOLIC [id number] 00:00:00* Test Item Value Reference Range Interpretation Comme nts GLUCOSE (test code = 2217) 71 MG/DL BUN (test code = 2208) 20 MG/DL CREATININE (test code = 2214) 1.2 MG/DL eGFR AMER. (test cod e = 90557) 82 ML/MIN/1.73 eGFR NON- AMER. (test code = 17613) 68 ML/MIN/1.73 CALCULATED BUN/CREAT (test code = [...] code = 2219) 31 U/L Bill BentleyLIPID [id number] 00:00:00* Test Item Value Reference Range Interpretation Comme nts CHOLESTEROL (test code = 2210) 252 MG/DL TRIGLYCERIDES (test code = 2232) 170 MG/DL HDL CHOLESTEROL (test code = 2220) 45 MG/DL CALCULATED LDL CHOL (test co de = 2237) 173 MG/DL RISK RATIO LDL/HDL (test cod e = 2238) 3.84 RATIO Bill BentleyCBC W/AUTO [id number] 00:00:00* Test Item Value Reference Range Interpretation [...] code = 1015) 224 K/UL Bill BentleyHEMOGLOBIN [id number] 00:00:00* Test Item Value Reference Range Interpretation Comme [facility] HEMOGLOBIN A1c (test code = 62495) 5.6 % Bill BentleyTHYROID II PROFILE (T3U, T4, T7, TSH)2015-03-06 00:00:00* Test Item Value Reference Range Interpretation Comme nts T3 UPTAKE (test code = 2817) 26.4 % T4 (THYROXINE) (test code = 2819) 3.9 UG/DL CALCULATED T7 (FTI) (test co de = 2820) 1.03 TSH (test code = 2821) 53.1 UIU/ML Bill BentleyCOMPREHENSIVE METABOLIC [id number] 00:00:00* Test Item Value Reference Range Interpretation Comme nts GLUCOSE (test code = 2217) 71 MG/DL BUN (test code = 2208) 20 MG/DL CREATININE (test code = 2214) 1.2 MG/DL eGFR AMER. (test cod e = 25474) 82 ML/MIN/1.73 eGFR NON- AMER. (test code = 83544) 68 ML/MIN/1.73 CALCULATED BUN/CREAT (test code = [...] code = 2219) 31 U/L Bill BentleyLIPID [id number] 00:00:00* Test Item Value Reference Range Interpretation Comme nts CHOLESTEROL (test code = 2210) 252 MG/DL TRIGLYCERIDES (test code = 2232) 170 MG/DL HDL CHOLESTEROL (test code = 2220) 45 MG/DL CALCULATED LDL CHOL (test co de = 2237) 173 MG/DL RISK RATIO LDL/HDL (test cod e = 2238) 3.84 RATIO Bill Sarah McCBC W/AUTO [id number] 00:00:00* Test Item Value Reference Range Interpretation [...] code = 1015) 224 K/UL Bill BentleyHEMOGLOBIN [id number] 00:00:00* Test Item Value Reference Range Interpretation Comme [facility] HEMOGLOBIN A1c (test code = 80246) 5.6 % Bill Sarah McTHYROID II PROFILE (T3U, T4, T7, TSH)2015-03-06 00:00:00* Test Item Value Reference Range Interpretation Comme [facility] T3 UPTAKE (test code = 2817) 26.4 % T4 (THYROXINE) (test code = 2819) 3.9 UG/DL CALCULATED T7 (FTI) (test co de = 2820) 1.03 TSH (test code = 2821) 53.1 UIU/ML Bill BentleyCOMPREHENSIVE METABOLIC [id number] 00:00:00* Test Item Value Reference Range Interpretation Comme nts GLUCOSE (test code = 2217) 71 MG/DL BUN (test code = 2208) 20 MG/DL CREATININE (test code = 2214) 1.2 MG/DL eGFR AMER. (test cod e = 33303) 82 ML/MIN/1.73 eGFR NON- AMER. (test code = 07647) 68 ML/MIN/1.73 CALCULATED BUN/CREAT (test code = [...] code = 2219) 31 U/L Bill BentleyLIPID [id number] 00:00:00* Test Item Value Reference Range Interpretation Comme nts CHOLESTEROL (test code = 2210) 252 MG/DL TRIGLYCERIDES (test code = 2232) 170 MG/DL HDL CHOLESTEROL (test code = 2220) 45 MG/DL CALCULATED LDL CHOL (test co de = 2237) 173 MG/DL RISK RATIO LDL/HDL (test cod e = 2238) 3.84 RATIO Bill BentleyCBC W/AUTO [id number] 00:00:00* Test Item Value Reference Range Interpretation [...] code = 1015) 224 K/UL Bill BentleyHEMOGLOBIN [id number] 00:00:00* Test Item Value Reference Range Interpretation Comme [facility] HEMOGLOBIN A1c (test code = 80577) 5.6 % Bill BentleyTHYROID II PROFILE (T3U, T4, T7, TSH)2015-03-06 00:00:00* Test Item Value Reference Range Interpretation Comme nts T3 UPTAKE (test code = 2817) 26.4 % T4 (THYROXINE) (test code = 2819) 3.9 UG/DL CALCULATED T7 (FTI) (test co de = 2820) 1.03 TSH (test code = 2821) 53.1 UIU/ML Bill BentleyCOMPREHENSIVE METABOLIC [id number] 00:00:00* Test Item Value Reference Range Interpretation Comme nts GLUCOSE (test code = 2217) 71 MG/DL BUN (test code = 2208) 20 MG/DL CREATININE (test code = 2214) 1.2 MG/DL eGFR AMER. (test cod e = 88821) 82 ML/MIN/1.73 eGFR NON- AMER. (test code = 50972) 68 ML/MIN/1.73 CALCULATED BUN/CREAT (test code = [...] code = 2219) 31 U/L Bill BentleyLIPID [id number] 00:00:00* Test Item Value Reference Range Interpretation Comme nts CHOLESTEROL (test code = 2210) 252 MG/DL TRIGLYCERIDES (test code = 2232) 170 MG/DL HDL CHOLESTEROL (test code = 2220) 45 MG/DL CALCULATED LDL CHOL (test co de = 2237) 173 MG/DL RISK RATIO LDL/HDL (test cod e = 2238) 3.84 RATIO Bill Sarah McCBC W/AUTO [id number] 00:00:00* Test Item Value Reference Range Interpretation [...] code = 1015) 224 K/UL Bill BentleyHEMOGLOBIN [id number] 00:00:00* Test Item Value Reference Range Interpretation Comme [facility] HEMOGLOBIN A1c (test code = 00336) 5.6 % Bill Sarah McTHYROID II PROFILE (T3U, T4, T7, TSH)2015-03-06 00:00:00* Test Item Value Reference Range Interpretation Comme [facility] T3 UPTAKE (test code = 2817) 26.4 % T4 (THYROXINE) (test code = 2819) 3.9 UG/DL CALCULATED T7 (FTI) (test co de = 2820) 1.03 TSH (test code = 2821) 53.1 UIU/ML Bill Bentley Notes Date/Time Note Provider Source Bill Rao [facility]2024-11-02 00:00:00 Bill Rao [facility]2024-10-04 00:00:00 Bill Rao [facility]2024-05-10 00:00:00 Bill [facility]
[2024-09-26] MEDS ORDERED: ACYCLOVIR 400 MG TABLET ONE (20:25)
--- NOTE | 2024-09-26 20:28 | ER ---
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 Coronavirus lg3 screen: Client denies travel out of the [place] in the last 14 days. At this time, the client does not indicate any symptoms associated with coronavirus-19. Ebola Screen: No symptoms or risks identified at this time. Onset: The symptoms/episode began/occurred 5 day(s) ago. Anaphylaxis evaluation, no signs or symptoms of anaphylaxis were noted. Initial Sepsis Screen: Does the patient meet any 2 criteria? No. Patient's initial sepsis screen is negative. Does the patient have a suspected source of infection? No. Patient's initial sepsis screen is negative. Risk Assessment: Do you want to hurt yourself or someone else? Patient reports no desire to harm self or others. Onset of symptoms was September 22, 2024. 19:43 Method Of Arrival: Ambulatory lg3 19:43 Acuity: MARIA VICTORIA 4 lg3 Triage Assessment: 19:45 General: Appears in no apparent distress. uncomfortable, Behavior is calm, cooperative. lg3 Pain: Denies pain. EENT: No deficits noted. No signs and/or symptoms were reported regarding the EENT system. Neuro: No deficits noted. Ruby Agitation-Sedation Scale (RASS): 0 - Alert and Calm Level of Consciousness is awake, alert, obeys commands, Oriented to person, place, time, situation. Cardiovascular: No deficits noted. Denies chest pain, shortness of breath, Capillary refill < 3 seconds Clubbing of nail beds is absent JVD is absent Patient's skin is warm and dry. Respiratory: No deficits noted. Airway is patent Respiratory effort is even, unlabored, Respiratory pattern is regular, symmetrical. GI: No deficits noted. No signs and/or symptoms were reported involving the gastrointestinal system. : No signs and/or symptoms were reported regarding the genitourinary system. Derm: Reports burning, itching. Musculoskeletal: No deficits noted. No signs and/or symptoms reported regarding the musculoskeletal system. Circulation, motion, and sensation intact. Range of motion: intact in all extremities. Historical: - Allergies: 19:45 NKA; lg3 - Home Meds: 19:45 levothyroxine 150 mcg tab 1 tab once daily [Active]; lg3 - PMHx: 19:45 Hypertension; Hypothyroidism; Kidney stone; lg3 - PSHx: 19:45 Appendectomy; Cholecystectomy; gastric sleeve (Cholecystectomy); lg3 - Immunization history:: Adult Immunizations up to date. - Infectious Disease History:: Denies. - Social history:: Smoking status: Patient denies any tobacco usage or history of. Patient/guardian denies using alcohol, street drugs. Screenin:19 [facility] ED Fall Risk Assessment (Adult) History of falling in the last 3 months, dd2 including since admission No falls in past 3 months (0 pts) Confusion or Disorientation No (0 pts) Intoxicated or Sedated No (0 pts) Impaired Gait No (0 pts) Mobility Assist Device Used No (0 pt) Altered Elimination No (0 pt) Score/Fall Risk Level 0 - 2 = Low Risk Oriented to surroundings, Maintained a safe environment, Educated pt \T\ family on fall prevention, incl call for assistance when getting out of bed, Assessed \T\ reinforced patient's understanding of fall precautions, Hourly rounding (assess needs \T\ fall precautionary measures) done. Abuse screen: Denies threats or abuse. Denies injuries from another. Nutritional screening: No deficits noted. Tuberculosis screening: No symptoms or risk factors identified. Assessment: 20:19 General: Appears in no apparent distress. Behavior is calm, cooperative, appropriate dd2 for age. Pain: Complains of pain in groin Pain does not radiate. Pain currently is 4 out of 10 on a pain scale. Neuro: No deficits noted. Cardiovascular: No deficits noted. Respiratory: No deficits noted. Airway is patent Respiratory effort is even, unlabored, Respiratory pattern is regular, symmetrical, Breath sounds are clear bilaterally. GI: No deficits noted. No signs and/or symptoms were reported involving the gastrointestinal system. : No deficits noted. No signs and/or symptoms were reported regarding the genitourinary system. EENT: No deficits noted. No signs and/or symptoms were reported regarding the EENT system. Derm: INSPECTION DEFERRED TO MALI GUERRERO DUE TO PT DECLINING THIS RN TO INSPECT Reports burning, itching, pain. Musculoskeletal: No deficits noted. No signs and/or symptoms reported regarding the musculoskeletal system. Circulation, motion, and sensation intact. Range of motion: intact in all extremities. Vital Signs: 19:43 BP 146 / 95; Pulse 79; Resp 16 S; Temp 98.3(O); Pulse Ox 100% on R/A; Weight 108.86 kg lg3 (R); Height 5 ft. 10 in. (R); Pain 0/10; 20:45 BP 137 / 86; Pulse 82; Resp 16; Pulse Ox 100% on R/A; dd2 19:43 Body Mass Index 34.44 (108.86 kg, 177.8 cm) lg3 19:43 Pain Scale: Adult lg3 Ovi Coma Score: 20:19 Eye Response: spontaneous(4). Motor Response: obeys commands(6). Verbal Response: dd2 oriented(5). Total: 15. ED Course: 19:30 Patient arrived in ED. gm2 19:32 Cristhian Farzier PA is PHCP. cp 19:32 Margy Camarillo MD is Attending Physician. cp 19:45 Triage completed. lg3 19:45 Arm band placed on right wrist. lg3 19:52 CELOPATRA WALTON, RN is Primary Nurse. dd2 20:19 Patient has correct armband on for positive identification. Bed in low position. Call dd2 light in reach. Client placed on continuous cardiac and pulse oximetry monitoring. NIBP monitoring applied. Door closed. Noise minimized. Pillow given. 20:19 No provider procedures requiring assistance completed. Patient did not have IV access dd2 during this emergency room visit. Patient maintains SpO2 saturation greater than 95% on room air. 20:45 Provided Education on: d/c education, medication. dd2 Administered Medications: 20:31 Drug: Acyclovir PO 800 mg PO once Route: PO; dd2 20:45 Follow up: Response: No adverse reaction dd2 Medication: 20:19 VIS not applicable for this client. dd2 Outcome: 20:28 Discharge ordered by . cp 20:45 Discharged to home ambulatory, dd2 20:45 Condition: stable 20:45 Discharge instructions given to patient, Instructed on discharge instructions, follow up and referral plans. medication usage, Demonstrated understanding of instructions, follow-up care, medications, Prescriptions given X 2, 21:00 Patient left the ED. dd2 Signatures: Cristhian Frazier PA PA cp Able, Lacie, RN RN lg3 Steph Hendrix gm2 CLEOPATRA WALTON RN RN dd2 Corrections: (The following items were deleted from the chart) 20: 20:19 Pain: Denies pain. dd2 dd2 20:30 20:19 Derm: redness to groin Reports burning, itching, dd2 dd2
--- NOTE | 2024-09-26 20:28 | EDPHYS ---
Physician Documentation [facility] Name: Cem Serra Age: 48 yrs Sex: Male : 1975 Arrival Date: 09/26/2024 Time: 19:27 Bed 18 Private MD: ED Physician Margy Camarillo HPI: 09/26 20:15 This 48 yrs old Male presents to ER via Ambulatory with complaints of Itching. cp 20:15 The patient presents with penile rash. Onset: The symptoms/episode began/occurred 5 cp day(s) ago. 20:15 Associated signs and symptoms: Pertinent negatives: abdominal pain, dysuria, fever, cp hematuria, penile discharge. Severity of symptoms: in the emergency department the symptoms are unchanged, despite home interventions. Patient reports he has been using OTC cream for jock itch without improvement. Historical: - Allergies: 19:45 NKA; lg3 - Home Meds: 19:45 levothyroxine 150 mcg tab 1 tab once daily [Active]; lg3 - PMHx: 19:45 Hypertension; Hypothyroidism; Kidney stone; lg3 - PSHx: 19:45 Appendectomy; Cholecystectomy; gastric sleeve (Cholecystectomy); lg3 - Immunization history:: Adult Immunizations up to date. - Infectious Disease History:: Denies. - Social history:: Smoking status: Patient denies any tobacco usage or history of. Patient/guardian denies using alcohol, street drugs. ROS: 20:18 Skin: Positive for rash, of the head and shaft of penis, cp 20:18 Constitutional: Negative for body aches, chills, fever, poor PO intake, cp 20:18 Eyes: Negative for injury, pain, redness, and discharge, cp 20:18 Abdomen/GI: Negative for abdominal pain, vomiting, diarrhea, constipation, 20:18 Back: Negative for pain at rest, pain with movement, 20:18 : Negative for hematuria, burning with urination, difficulty urinating, testicular pain 20:18 All other systems are negative, Exam: 20:21 Constitutional: The patient appears in no acute distress, alert, awake, non-toxic, well cp developed, well nourished, 20:21 Head/Face: Normocephalic, atraumatic. cp 20:21 Cardiovascular: Rate: normal, 20:21 Abdomen/GI: Inspection: abdomen appears normal, Palpation: abdomen is soft and non-tender, in all quadrants, 20:21 : Male external genitalia: circumcised, erythema, multiple ulcerated lesions noted to head and shaft of penis, mild colored drainage, Sexual behavior: the patient is sexually active, Vital Signs: 19:43 BP 146 / 95; Pulse 79; Resp 16 S; Temp 98.3(O); Pulse Ox 100% on R/A; Weight 108.86 kg lg3 (R); Height 5 ft. 10 in. (R); Pain 0/10; 20:45 BP 137 / 86; Pulse 82; Resp 16; Pulse Ox 100% on R/A; dd2 19:43 Body Mass Index 34.44 (108.86 kg, 177.8 cm) lg3 19:43 Pain Scale: Adult lg3 Ovi Coma Score: 20:19 Eye Response: spontaneous(4). Motor Response: obeys commands(6). Verbal Response: dd2 oriented(5). Total: 15. MDM: 19:46 Medical Screening Exam initiated cp 20:20 Differential diagnosis: UTI, prostatitis, urethritis, std, herpes simplex, chancroid, cp tinea cruris, candidiasis. 20:28 Data reviewed: vital signs, nurses notes, and as a result, I will discharge patient. cp 20:28 I considered the following discharge prescriptions or medication management in the cp emergency department Medications were administered in the Emergency Department. See MAR. Counseling: I had a detailed discussion with the patient and/or guardian regarding the historical points, exam findings, and any diagnostic results supporting the discharge/admit diagnosis, the need for outpatient follow up, a family practitioner, to return to the emergency department if symptoms worsen or persist or if there are any questions or concerns that arise at home. 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 cp Followup: cp - With: Private Physician - When: 1 week - Reason: Recheck today's complaints Discharge Instructions: - Discharge Summary Sheet cp - Genital Herpes cp Forms: - Medication Reconciliation Form cp - Antibiotic Education cp - Prescription Opioid Use cp - Patient Portal Instructions cp - Leadership Thank You Letter cp Prescriptions: - nystatin 100,000 unit/gram Topical ointment - apply 1 application TOPICAL route 3 times per day for 8-10 days apply to cp genital area; 45 gram tube; Refills: 0, Product Selection Permitted - Acyclovir 200 mg Oral capsule - take 2 capsule ORAL route every 8 hours for 10 days; 60 capsule; Refills: 0, cp Product Selection Permitted Signatures: Cristhian Frazier PA PA cp Able, Lacie RN RN lg3 CLEOPATRA WALTON RN RN dd2 Corrections: (The following items were deleted from the chart) 09/27 20:09 09/25 20:15 This 48 yrs old Male presents to ER via Ambulatory with complaints of cp Itching. cp
[2024-09-26 21:06] VITALS: TEMP 98.3; O2SAT 100
[2024-09-26 21:15] VITALS: BP 137/86
== END 2024-09-26 21:00 | disposition home or self-care (01) ==
LOC: ER 19:27
DX: A60.02 Herpesviral infection of other male genital organs (principal)
CPT/HCPCS: 99283